=== PATIENT | male | born 1975 | race Caucasian/White ===

== ENCOUNTER 2018-11-26 12:28 | Observation (INO) ==
[2018-11-26] MEDS ORDERED: ONDANSETRON INJ 2 MG/ML 2 ML VIAL ONE (12:34)
[2018-11-26] MEDS ORDERED: DIAZEPAM 5 MG/ML INJ 10ML VIAL IV STA (12:44)
[2018-11-26] MEDS ORDERED: SODIUM CHLORIDE 0.9% 500 ML IV SCH (12:45)
--- NOTE | 2018-11-26 13:04 | Emergency Department Note ---
Entered by Savanah Jacobson acting as a scribe for History of Present Illness General Chief complaint: Vertigo Stated complaint: Dizzy, N/V Source: patient History of Present Illness Onset (ago): hour(s) (this morning) Location: head Pain Consistency: + other (persistent ) Quality: + other (room-spinning dizziness) Exacerbated By: + movement Associated symptoms: + nausea/vomiting and + other (positive diarrhea; negative abdominal pain; negative ringing in ears ); no chest pain and no shortness of breath The patient is a 43 year old male who presents to the Emergency Room with complaints of persistent dizziness that began this morning. The patient describes this dizziness as room-spinning. The patient states that he has had nausea, vomiting, and diarrhea during this time. The patient states that movement exacerbates her dizziness. The patient denies abdominal pain, chest pain, shortness of breath, and ringing in his ears. The patient denies any recent travel, tobacco use, and alcohol use. He states that he has a history of diabetes and hypertension. Home Medications Home Medications Medication Instructions Recorded Confirmed Type amlodipine 10 mg PO DAILY 11/26/18 11/26/18 History carvedilol 1 tab PO BID 11/26/18 11/26/18 History cholecalciferol (vitamin D3) 50,000 unit PO WK 11/26/18 11/26/18 History citalopram [Celexa] 40 mg PO DAILY 11/26/18 11/26/18 History hydrochlorothiazide 25 mg PO DAILY 11/26/18 11/26/18 History lisinopril 40 mg PO DAILY 11/26/18 11/26/18 History metformin 500 mg PO BID 11/26/18 11/26/18 History simvastatin 20 mg PO HS 11/26/18 11/26/18 History sitagliptin-metformin [Janumet] 1 tab PO DAILY 11/26/18 11/26/18 History spironolactone 1.5 tab PO DAILY 11/26/18 11/26/18 History Allergies Allergy/AdvReac Type Severity Reaction Status Date / Time No Known Allergies Allergy Unverified 11/26/18 13:41 Past Med/Surg History Medical History Diabetes (Chronic) Hypertension (Chronic) Social History Current Living Situation: Spouse Other Information That Helps Us Care for You: No Feels Safe at Home: Yes Safety Concerns: Feels Safe At This Time Smoking Status: Never smoker Hx Alcohol Use: No Hx Substance Use: No Beliefs That Will Affect Care: None Preferred Language: Japanese Communication Ability: Effective Review of Systems See HPI for pertinent positives & negatives. and A total of 10 systems reviewed and were otherwise negative Physical Exam Vital Signs Vital Signs - 24 hr 11/26/18 11:45 11/26/18 12:41 11/26/18 12:42 Temperature Temperature Source Sepsis Recent Fever Within 48 Hours Sepsis New/Unexplained Change in Mental Status Sepsis Action Taken by Nursing Pulse Rate 68 67 68 Pulse Rate [Left Radial] Pulse Rhythm Pulse Rhythm [Left Radial] Pulse Strength Pulse Strength [Left Radial] Respiratory Rate 18 23 29 H Respiratory Effort / Characteristics Respiratory Depth Respiratory Pattern Blood Pressure 135/77 138/99 Blood Pressure [Right Arm] Blood Pressure Mean 96 112 Blood Pressure Mean [Right Arm] Blood Pressure Position Blood Pressure Position [Right Arm] Pulse Oximetry Pulse Oximetry [Left Index Finger] Oxygen Delivery Method Oxygen Delivery Method [Left Index Finger] 11/26/18 12:44 11/26/18 12:50 11/26/18 12:54 Temperature 36.4 C L Temperature Source Oral Sepsis Recent Fever Within 48 Hours No Sepsis New/Unexplained Change in Mental Status No Sepsis Action Taken by Nursing No Action Required Pulse Rate 66 65 65 Pulse Rate [Left Radial] Pulse Rhythm Regular Regular Pulse Rhythm [Left Radial] Pulse Strength Normal Pulse Strength [Left Radial] Respiratory Rate 20 18 22 Respiratory Effort / Characteristics Non-Labored Respiratory Depth Normal Respiratory Pattern Regular Blood Pressure 138/99 Blood Pressure [Right Arm] Blood Pressure Mean 112 Blood Pressure Mean [Right Arm] Blood Pressure Position Sitting Blood Pressure Position [Right Arm] Pulse Oximetry 98 97 Pulse Oximetry [Left Index Finger] Oxygen Delivery Method Room Air Room Air Oxygen Delivery Method [Left Index Finger] 11/26/18 13:00 11/26/18 16:23 11/26/18 18:17 Temperature Temperature Source Sepsis Recent Fever Within 48 Hours Sepsis New/Unexplained Change in Mental Status Sepsis Action Taken by Nursing Pulse Rate 62 Pulse Rate [Left Radial] 65 Pulse Rhythm Pulse Rhythm [Left Radial] Regular Pulse Strength Pulse Strength [Left Radial] Normal Respiratory Rate 18 16 Respiratory Effort / Characteristics Non-Labored Respiratory Depth Normal Respiratory Pattern Blood Pressure Blood Pressure [Right Arm] 130/63 Blood Pressure Mean Blood Pressure Mean [Right Arm] 85 Blood Pressure Position Blood Pressure Position [Right Arm] Lying Pulse Oximetry 99 99 Pulse Oximetry [Left Index Finger] 100 Oxygen Delivery Method Room Air Oxygen Delivery Method [Left Index Finger] Room Air 11/26/18 18:21 Temperature 36.8 C Temperature Source Oral Sepsis Recent Fever Within 48 Hours Sepsis New/Unexplained Change in Mental Status Sepsis Action Taken by Nursing Pulse Rate Pulse Rate [Left Radial] 73 Pulse Rhythm Pulse Rhythm [Left Radial] Regular Pulse Strength Pulse Strength [Left Radial] Normal Respiratory Rate 18 Respiratory Effort / Characteristics Non-Labored Respiratory Depth Normal Respiratory Pattern Regular Blood Pressure Blood Pressure [Right Arm] 118/74 Blood Pressure Mean Blood Pressure Mean [Right Arm] 88 Blood Pressure Position Blood Pressure Position [Right Arm] Lying Pulse Oximetry 100 Pulse Oximetry [Left Index Finger] Oxygen Delivery Method Room Air Oxygen Delivery Method [Left Index Finger] GENERAL: Patient is awake and alert. He is very anxious appearing and appears to be uncomfortable. EYES: The conjunctivae are clear. The pupils are round and reactive. EARS, NOSE, MOUTH AND THROAT: The nose is without any evidence of any deformity. Mucous membranes are moist tongue is midline NECK: The neck is nontender and supple. RESPIRATORY: Normal respiratory effort is noted there is no evidence of wheezing rhonchi or rales CARDIOVASCULAR: Regular rate and rhythm noted there no murmurs rubs or gallops normal S1 normal S2 GASTROINTESTINAL: The abdomen is soft. Bowel sounds are present in all quadrants. Abdomen is nontender MUSCULOSKELETAL/EXTREMITIES: There is no evidence of gross deformity full range of motion is noted in the hips and shoulders SKIN: There is no obvious evidence of any rash. Skin is diaphoretic and cool. NEUROLOGIC: Patient is awake alert and oriented x3 strength is symmetric patellar reflexes are 2+ bilaterally. Rapid alternating movements are symmetric. There is nystagmus in both horizontal directions as well as vertical. The patient had significant ataxia when he stood up to walk to the bathroom. His symptoms were significantly worsened with any ambulation. Course 1238: Past medical records reviewed. The patient was evaluated in room C9, and a complete history and physical examination were performed. 1617: I checked on the patient and updated him. 1633: I discussed the case with Mandi RIVERA who will further evaluate the patient. Consultations Consultation #1: I discussed the case with Mandi RIVERA who will further evaluate the patient. Administered Medications Sodium Chloride (Nss 1000ml) 1,000 mls @ 125 mls/hr IV .Q8H CONNOR Stop: 12/26/18 17:59 Last Admin: 11/26/18 18:21 Dose: 125 mls/hr Discontinued Medications Diazepam (Valium) 2.5 mg IV NOW STA Stop: 11/26/18 12:45 Last Admin: 11/26/18 13:07 Dose: 2.5 mg Sodium Chloride (Nss) 500 mls @ 999 mls/hr IV .Q31M CONNOR Stop: 11/26/18 13:15 Last Infusion: 11/26/18 14:55 Dose: 0 mls/hr Admin: 11/26/18 13:07 Dose: 999 mls/hr Meclizine HCl (Antivert) 25 mg PO NOW STA Stop: 11/26/18 16:03 Last Admin: 11/26/18 16:22 Dose: 25 mg Ondansetron HCl (Zofran) Confirm Administered Dose 4 mg .ROUTE .STK-MED ONE Stop: 11/26/18 12:35 Last Admin: 11/26/18 12:37 Dose: 4 mg Medical Decision Making Differential Diagnosis Differential diagnosis: Etiologies such as benign positional vertigo, labrynthitis, dehydration, hypovolemia, anemia, tumor, infection, hypoglycemia, electrolyte abnormalities, cardiac sources, toxicological sources, central neurologic process, as well as others were entertained. Medical Records Attestation: I reviewed the patient's medical records. Home Medications Current Medication List: was personally reviewed by me Laboratory Data Attestation: I reviewed the patient's lab results. Result diagrams: 11/26/18 13:00 11/26/18 13:00 Lab Results 11/26/18 11/26/18 11/26/18 Range/Units 13:00 13:00 13:00 WBC 14.13 H (4.8-10.8) K/uL RBC 4.66 L (4.7-6.1) M/uL Hgb 13.7 L (14.0-18.0) g/dL Hct 40.0 L (42-52) % MCV 85.8 (80-100) fL MCH 29.4 (25-34) pg MCHC 34.3 (32-36) g/dL RDW Std Deviation 43.6 (36.4-46.3) fL RDW Coeff of Sarah 14.1 (11.5-14.5) % Plt Count 209 (130-400) K/uL MPV 9.3 (7.4-10.4) fL Immature Gran % (Auto) 0.8 % Neut % (Auto) 66.1 % Lymph % (Auto) 18.9 % Vigo % (Auto) 8.8 % Eos % (Auto) 5.0 % Baso % (Auto) 0.4 % Immature Gran # (Auto) 0.12 H (0.00-0.02) K/uL Neut # (Auto) 9.34 H (1.4-6.5) K/uL Lymph # (Auto) 2.67 (1.2-3.4) K/uL Vigo # (Auto) 1.24 H (0.11-0.59) K/uL Eos # (Auto) 0.70 H (0-0.5) K/uL Baso # (Auto) 0.06 (0-0.2) K/uL PT 10.7 (9.0-12.0) Seconds INR 1.1 (0.9-1.1) APTT 22.4 (21.0-31.0) Seconds PTT Ratio 0.9 Sodium 138 (136-145) mmol/L Potassium 4.1 (3.5-5.1) mmol/L Chloride 106 (98-107) mmol/L Carbon Dioxide 24 (21-32) mmol/L Anion Gap 8.0 (3-11) BUN 17 (7-18) mg/dl Creatinine 1.24 (0.6-1.4) mg/dl Est Cr Clr Drug Dosing 133.6 ml/min Est GFR ( Amer) 83.2 Est GFR (Non-Af Amer) 71.8 BUN/Creatinine Ratio 14.1 (10-20) Glucose 161 H (70-99) mg/dl Calcium 9.2 (8.5-10.1) mg/dl Magnesium 1.9 (1.8-2.4) mg/dl Total Bilirubin 0.8 (0.2-1) mg/dl AST 19 (15-37) U/L ALT 33 (12-78) U/L Alkaline Phosphatase 59 (45-117) U/L Troponin I < 0.015 (0-0.045) ng/ml Total Protein 7.7 (6.4-8.2) gm/dl Albumin 4.0 (3.4-5.0) gm/dl Globulin 3.7 (2.5-4.0) gm/dl Albumin/Globulin Ratio 1.1 (0.9-2) TSH 1.810 (0.300-4.500) uIu/ml Urine Color Urine Appearance (Clear) Urine pH (4.5-7.5) Ur Specific Correll (1.000-1.030) Urine Protein (Negative) Urine Glucose (UA) (Negative) Urine Ketones (Negative) Urine Blood (Negative) Urine Nitrite (Negative) Urine Bilirubin (Negative) Urine Urobilinogen (Negative) Ur Leukocyte Esterase (Negative) 11/26/18 Range/Units 15:55 WBC (4.8-10.8) K/uL RBC (4.7-6.1) M/uL Hgb (14.0-18.0) g/dL Hct (42-52) % MCV (80-100) fL MCH (25-34) pg MCHC (32-36) g/dL RDW Std Deviation (36.4-46.3) fL RDW Coeff of Sarah (11.5-14.5) % Plt Count (130-400) K/uL MPV (7.4-10.4) fL Immature Gran % (Auto) % Neut % (Auto) % Lymph % (Auto) % Vigo % (Auto) % Eos % (Auto) % Baso % (Auto) % Immature Gran # (Auto) (0.00-0.02) K/uL Neut # (Auto) (1.4-6.5) K/uL Lymph # (Auto) (1.2-3.4) K/uL Vigo # (Auto) (0.11-0.59) K/uL Eos # (Auto) (0-0.5) K/uL Baso # (Auto) (0-0.2) K/uL PT (9.0-12.0) Seconds INR (0.9-1.1) APTT (21.0-31.0) Seconds PTT Ratio Sodium (136-145) mmol/L Potassium (3.5-5.1) mmol/L Chloride (98-107) mmol/L Carbon Dioxide (21-32) mmol/L Anion Gap (3-11) BUN (7-18) mg/dl Creatinine (0.6-1.4) mg/dl Est Cr Clr Drug Dosing ml/min Est GFR ( Amer) Est GFR (Non-Af Amer) BUN/Creatinine Ratio (10-20) Glucose (70-99) mg/dl Calcium (8.5-10.1) mg/dl Magnesium (1.8-2.4) mg/dl Total Bilirubin (0.2-1) mg/dl AST (15-37) U/L ALT (12-78) U/L Alkaline Phosphatase (45-117) U/L Troponin I (0-0.045) ng/ml Total Protein (6.4-8.2) gm/dl Albumin (3.4-5.0) gm/dl Globulin (2.5-4.0) gm/dl Albumin/Globulin Ratio (0.9-2) TSH (0.300-4.500) uIu/ml Urine Color Dark Yellow Urine Appearance Clear (Clear) Urine pH 6.5 (4.5-7.5) Ur Specific Correll 1.025 (1.000-1.030) Urine Protein Negative (Negative) Urine Glucose (UA) Negative (Negative) Urine Ketones Negative (Negative) Urine Blood Negative (Negative) Urine Nitrite Negative (Negative) Urine Bilirubin Negative (Negative) Urine Urobilinogen Negative (Negative) Ur Leukocyte Esterase Negative (Negative) Imaging Data Radiologist's Impression: Radiology results as stated below per my review and the radiologist's interpretation: XR chest 1V portable HISTORY: weakness COMPARISON: None. FINDINGS: Low lung volumes. The heart is mildly enlarged. No evidence for pulmonary edema. No focal lung consolidations to suggest pneumonia. No pleural effusions. No pneumothorax. IMPRESSION: Mild cardiomegaly. Electronically signed by: Armando Allan M.D. 11/26/2018 2:[address]AST CT DOSE: 884.08 mGy.cm HISTORY: dizzy TECHNIQUE: Multiaxial CT images of the head were performed without the use of intravenous contrast. Automated exposure control was utilized for this study. A dose lowering technique was utilized adhering to the principles of ALARA. Comparison: Brain MRI 12/18/2009. Findings: Mild mucosal thickening within the sphenoid sinuses. Trace fluid level within the left maxillary sinus. The mastoid air cells are clear. The calvarium and skull base are intact. The ventricles and sulci are within normal limits. There is no mass, hematoma, midline shift, or acute infarct. Impression: No acute intracranial abnormality. Mild sinus disease as described above. Electronically signed by: Armando Allan M.D. 11/26/2018 1:31 PM ECG Data Attestation: I personally reviewed and interpreted this ECG as follows: Indication: weakness Rate (beats per minute): 64 Rhythm: sinus rhythm Findings: + 1st degree AV block; no nonspecific-ST abn and no ectopy Comparison ECG Date: no prior available Blood Pressure Blood Pressure Findings: Normal blood pressure MDM Narrative The patient is a 43-year-old male who presented to the emergency department for an evaluation of nausea and vomiting. The patient has a history of diabetes. He was brought into the emergency department by ambulance after he was noted to have significant diaphoresis and nausea. Initially this was felt to be consistent with a possible ischemic episode but the patient has no changes on EKG and his cardiac biomarker was negative. On further history and physical taking I do find the patient's symptoms appear to be more positional in nature. He has nystagmus which is very significant and has very significant ataxia. It is possible that this represents a peripheral vertigo however given the patient's symptoms and his history of diabetes I discussed his case with the on- call [facility] hospitalist. It is possible this represents a central cause for his vertigo. For this reason I do feel he may require further testing or at least observation. The patient was treated with medications for vertigo on subsequent reevaluation was somewhat improved. Impression & Plan Vertigo, Ataxia Discharge Plan Visit Data *Final* Discharge Date/Time: 11/26/18 17:54 Chief Complaint: Vertigo Stated Complaint: Dizzy, N/V ED Provider: Chaim Wasserman Discharge Problem: Vertigo, Ataxia Patient Disposition: Admitted As Inpatient Discharge Instructions Interventions: ED Discharge Assessment Last Done: 11/26/18 17:54 The scribe's documentation has been prepared under my direction and personally reviewed by me in its entirety. I confirm that the note above accurately reflects all work, treatment, procedures, and medical decision making performed by me.
[2018-11-26 13:18] LABS: Basophils # (auto) 0.06 K/uL (0-0.2); Basophils % (auto) 0.4 %; Hemoglobin 13.7 g/dL (14.0-18.0); Immature Granulocytes # (auto) 0.12 K/uL (0.00-0.02); Immature Granulocytes % (auto) 0.8 %; Lymphocytes # (auto) 2.67 K/uL (1.2-3.4); Lymphocytes % (auto) 18.9 %; Mean Corpuscular Hgb Conc 34.3 g/dL (32-36); Mean Corpuscular Volume 85.8 fL (80-100); Mean Platelet Volume 9.3 fL (7.4-10.4); Monocytes # (auto) 1.24 K/uL (0.11-0.59); Monocytes % (auto) 8.8 %; Neutrophils # (auto) 9.34 K/uL (1.4-6.5); Neutrophils % (auto) 66.1 %; Platelet Count 209 K/uL (130-400); RDW Coefficient of Variation 14.1 % (11.5-14.5); RDW Standard Deviation 43.6 fL (36.4-46.3); Red Blood Count 4.66 M/uL (4.7-6.1); White Blood Count 14.13 K/uL (4.8-10.8)
[2018-11-26 13:28] LABS: INR 1.1 (0.9-1.1); Partial Thromboplastin Ratio 0.9; Partial Thromboplastin Time 22.4 Seconds (21.0-31.0); Prothrombin Time 10.7 Seconds (9.0-12.0)
[2018-11-26 13:33] LABS: Alanine Aminotransferase 33 U/L (12-78); Aspartate Aminotransferase 19 U/L (15-37); BUN Creatinine Ratio 14.1 (10-20); Blood Urea Nitrogen 17 mg/dl (7-18); Calcium 9.2 mg/dl (8.5-10.1); Carbon Dioxide 24 mmol/L (21-32); Chloride 106 mmol/L (98-107); Creatinine Clr Calc Pharmacy 133.6 ml/min; Est GFR (African American) 83.2; Est GFR (Non-African American) 71.8; Glucose 161 mg/dl (70-99); Magnesium 1.9 mg/dl (1.8-2.4); Potassium 4.1 mmol/L (3.5-5.1); Sodium 138 mmol/L (136-145)
--- NOTE | 2018-11-26 13:33 | CT Scan Report ---
HEAD CT NONCONTRAST CT DOSE: 884.08 mGy.cm HISTORY: dizzy TECHNIQUE: Multiaxial CT images of the head were performed without the use of intravenous contrast. A utomated exposure control was utilized for this study. A dose lowering technique was utilized adheri ng to the principles of ALARA. Comparison: Brain MRI 12/18/2009. Findings: Mild mucosal thickening within the sphenoid sinuses. Trace fluid level within the left maxi llary sinus. The mastoid air cells are clear. The calvarium and skull base are intact. The ventricles and sulci are within normal limits. There is no mass, hematoma, midline shift, or acute infarct. Impression: No acute intracranial abnormality. Mild sinus disease as described above. Electronically signed by: Armando Allan M.D. 11/26/2018 1:31 PM
[2018-11-26 13:44] LABS: Albumin Globulin Ratio 1.1 (0.9-2); Alkaline Phosphatase 59 U/L (45-117); Bilirubin,Total 0.8 mg/dl (0.2-1); Globulin 3.7 gm/dl (2.5-4.0); Total Protein 7.7 gm/dl (6.4-8.2); Troponin I < 0.015 ng/ml (0-0.045)
--- NOTE | 2018-11-26 14:05 | XRay Report ---
XR chest 1V portable HISTORY: weakness COMPARISON: None. FINDINGS: Low lung volumes. The heart is mildly enlarged. No evidence for pulmonary edema. No focal l brandon consolidations to suggest pneumonia. No pleural effusions. No pneumothorax. IMPRESSION: Mild cardiomegaly. Electronically signed by: Armando Allan M.D. 11/26/2018 2:04 PM
[2018-11-26] MEDS ORDERED: MECLIZINE HCL 25 MG TAB PO STA (16:02)
[2018-11-26 16:16] LABS: Appearance Urine Clear (Clear); Bilirubin Urine Negative (Negative); Color Urine Dark Yellow; Glucose Urine UA Negative (Negative); Ketones Urine Negative (Negative); Leukocyte Esterase Urine Negative (Negative); Nitrite Urine Negative (Negative); Protein Urine Negative (Negative); Specific Gravity Urine 1.025 (1.000-1.030); Urobilinogen Urine Negative (Negative); pH Urine 6.5 (4.5-7.5)
[2018-11-26] MEDS ORDERED: GLUCAGON FOR INJ 1 MG VIAL SQ PRN (18:17)
[2018-11-26] MEDS ORDERED: CARBOHYDRATES FOR HYPOGLYCEMIA PO PRN (18:17)
[2018-11-26] MEDS ORDERED: GLUCOSE 40% GEL 15 GM TUBE PO PRN (18:17)
[2018-11-26] MEDS ORDERED: ACETAMINOPHEN 325 MG TAB PO PRN (18:17)
[2018-11-26] MEDS ORDERED: GLUCOSE 10 TABS/TUBE PO PRN (18:17)
[2018-11-26] MEDS ORDERED: MECLIZINE HCL 25 MG TAB PO PRN (18:17)
[2018-11-26] MEDS ORDERED: DEXTROSE 50% 50 ML SYRINGE IV PRN (18:17)
[2018-11-26] MEDS ORDERED: ONDANSETRON INJ 2 MG/ML 2 ML VIAL IV PRN (18:17)
[2018-11-26] MEDS: SODIUM CHLORIDE 0.9% 1000ML 1,000 ML IV SCH (18:21)
[2018-11-26] MEDS ORDERED: ENOXAPARIN INJ 40 MG/0.4 ML SYR SQ SCH (19:00)
--- NOTE | 2018-11-26 19:35 | History & Physical Report ---
Date of Service November 26, 2018 Assessment & Plan (1) Vertigo: -admit to tele -patient presenting with worsening dizziness and several episodes of vomiting -symptoms seem to be due to vertigo, however given patient's underlying co- morbidities, will observe over night -head CT negative -continue neuro checks q4h -supportive care with IVF, PRN antiemetics and meclizine -hold HCTZ for now -if patient does not improve, consider further imaging with brain MRI (2) HTN (hypertension): -BP controlled, continue amlodipine, lisinopril, spironalactone, carvedilol -holding HCTZ as above (3) DM type 2 (diabetes mellitus, type 2): -hgb a1c 6.7 08/2018 -hold oral agents and utilize Novolog per protocol while hospitalized (4) LEIGH on CPAP: -CPAP as per home settings (5) Anxiety: -continue citalopram (6) DVT prophylaxis: - SQ Lovenox History of Present Illness Chief Complaint: Dizziness, Vomitting Primary Care Provider: Mikey Vizcaino 43 year old male who presents to the ED with vomiting and dizziness. Patient reports last evening he took an additional stool softener. This morning, he reports a large amount of diarrhea. Patient felt overall ok and then went to work. He reports that when he arrived to work he developed dizziness, a sensation of the room spinning around him. He reports several episodes of vomiting. No hematemesis or coffee ground emesis. He was very diaphoretic. He denies chest pain and shortness of breath. No unilateral weakness, numbness, tingling, slurred speech, or facial droop. He denies abdominal pain. No other recent illnesses, fever, or chills. He denies urinary symptoms. In the ED, head CT is negative for acute findings. Initial troponin is negative and EKG does not show any acute ST changes. Patient was given IVF, IV diazepam, and PO meclizine. He reports some improvement in his symptoms. Patient attempted to ambulate to the bathroom however remains very ataxic. Allergies Allergy/AdvReac Type Severity Reaction Status Date / Time No Known Allergies Allergy Unverified 11/26/18 13:41 Home Medications Home Medications Medication Instructions Recorded Confirmed Type amlodipine 10 mg PO DAILY 11/26/18 11/26/18 History carvedilol 1 tab PO BID 11/26/18 11/26/18 History cholecalciferol (vitamin D3) 50,000 unit PO WK 11/26/18 11/26/18 History citalopram [Celexa] 40 mg PO DAILY 11/26/18 11/26/18 History hydrochlorothiazide 25 mg PO DAILY 11/26/18 11/26/18 History lisinopril 40 mg PO DAILY 11/26/18 11/26/18 History metformin 500 mg PO BID 11/26/18 11/26/18 History simvastatin 20 mg PO HS 11/26/18 11/26/18 History sitagliptin-metformin [Janumet] 1 tab PO DAILY 11/26/18 11/26/18 History spironolactone 1.5 tab PO DAILY 11/26/18 11/26/18 History Past Med/Surg History Medical History Anxiety (Chronic) HTN (hypertension) (Chronic) LEIGH on CPAP (Chronic) DM type 2 (diabetes mellitus, type 2) (Chronic) Surgical History History of appendectomy (Chronic) Family History Father COPD (chronic obstructive pulmonary disease) Heart disease Social History Current Living Situation: Spouse Other Information That Helps Us Care for You: No Feels Safe at Home: Yes Safety Concerns: Feels Safe At This Time Smoking Status: Never smoker Hx Alcohol Use: Yes Alcohol Intake Frequency: holidays/special occasions only Beliefs That Will Affect Care: None Preferred Language: Mohawk Communication Ability: Effective Review of Systems ROS per HPI, all other systems reviewed and negative Physical Exam 2 Vital Signs (Past 24 Hours): Last Vital Signs Temp 36.8 C 11/26/18 18:21 Pulse 73 11/26/18 18:21 Resp 18 11/26/18 18:21 BP 118/74 11/26/18 18:21 Pulse Ox 100 11/26/18 18:21 Constitutional: WD/WN, vitals as above + obese Eyes: PERRL, conjunctivae normal, anicteric sclerae ENMT: external ear and nose normal, oropharynx normal Respiratory: normal respiratory effort, lungs clear to auscultation Cardiovascular: Rate/Rhythm: regular rate and regular rhythm Vessels: normal peripheral pulses Extremities: no edema Gastrointestinal (Abdomen): normal bowel sounds, soft, nontender, no hepatosplenomegaly Musculoskeletal: no cyanosis or clubbing, extremities motor strength 5/5 Skin: no rashes, warm and dry Neurologic: moves all extremities and awake Speech / Cognition: normal speech and no expressive aphasia Motor/Sensory: no pronator drift Cranial Nerves: PERRL, normal accommodation, EOM intact bilaterally, normal facial strength, tongue midline, normal hearing, able to rotate head bilaterally, able to elevate shoulders bilaterally and no nystagmus Coordination: normal finger -to-nose test and normal [id number] test Psychiatric: A+Ox3, euthymic affect Results & Data Laboratory Results Laboratory Last Values WBC 14.13 K/uL (4.8-10.8) H 11/26/18 13:00 RBC 4.66 M/uL (4.7-6.1) L 11/26/18 13:00 Hgb 13.7 g/dL (14.0-18.0) L 11/26/18 13:00 Hct 40.0 % (42-52) L 11/26/18 13:00 MCV 85.8 fL (80-100) 11/26/18 13:00 MCH 29.4 pg (25-34) 11/26/18 13:00 MCHC 34.3 g/dL (32-36) 11/26/18 13:00 RDW Std Deviation 43.6 fL (36.4-46.3) 11/26/18 13:00 RDW Coeff of Sarah 14.1 % (11.5-14.5) 11/26/18 13:00 Plt Count 209 K/uL (130-400) 11/26/18 13:00 MPV 9.3 fL (7.4-10.4) 11/26/18 13:00 Immature Gran % (Auto) 0.8 % 11/26/18 13:00 Neut % (Auto) 66.1 % 11/26/18 13:00 Lymph % (Auto) 18.9 % 11/26/18 13:00 [place] % (Auto) 8.8 % 11/26/18 13:00 Eos % (Auto) 5.0 % 11/26/18 13:00 Baso % (Auto) 0.4 % 11/26/18 13:00 Immature Gran # (Auto) 0.12 K/uL (0.00-0.02) H 11/26/18 13:00 Neut # (Auto) 9.34 K/uL (1.4-6.5) H 11/26/18 13:00 Lymph # (Auto) 2.67 K/uL (1.2-3.4) 11/26/18 13:00 [place] # (Auto) 1.24 K/uL (0.11-0.59) H 11/26/18 13:00 Eos # (Auto) 0.70 K/uL (0-0.5) H 11/26/18 13:00 Baso # (Auto) 0.06 K/uL (0-0.2) 11/26/18 13:00 PT 10.7 Seconds (9.0-12.0) 11/26/18 13:00 INR 1.1 (0.9-1.1) 11/26/18 13:00 APTT 22.4 Seconds (21.0-31.0) 11/26/18 13:00 PTT Ratio 0.9 11/26/18 13:00 Sodium 138 mmol/L (136-145) 11/26/18 13:00 Potassium 4.1 mmol/L (3.5-5.1) 11/26/18 13:00 Chloride 106 mmol/L (98-107) 11/26/18 13:00 Carbon Dioxide 24 mmol/L (21-32) 11/26/18 13:00 Anion Gap 8.0 (3-11) 11/26/18 13:00 BUN 17 mg/dl (7-18) 11/26/18 13:00 Creatinine 1.24 mg/dl (0.6-1.4) 11/26/18 13:00 Est Cr Clr Drug Dosing 133.6 ml/min 11/26/18 13:00 Est GFR ( Amer) 83.2 11/26/18 13:00 Est GFR (Non-Af Amer) 71.8 11/26/18 13:00 BUN/Creatinine Ratio 14.1 (10-20) 11/26/18 13:00 Glucose 161 mg/dl (70-99) H 11/26/18 13:00 POC Glucose 152 (70-99) H 11/26/18 18:42 Calcium 9.2 mg/dl (8.5-10.1) 11/26/18 13:00 Magnesium 1.9 mg/dl (1.8-2.4) 11/26/18 13:00 Total Bilirubin 0.8 mg/dl (0.2-1) 11/26/18 13:00 AST 19 U/L (15-37) 11/26/18 13:00 ALT 33 U/L (12-78) 11/26/18 13:00 Alkaline Phosphatase 59 U/L (45-117) 11/26/18 13:00 Troponin I < 0.015 ng/ml (0-0.045) 11/26/18 13:00 Total Protein 7.7 gm/dl (6.4-8.2) 11/26/18 13:00 Albumin 4.0 gm/dl (3.4-5.0) 11/26/18 13:00 Globulin 3.7 gm/dl (2.5-4.0) 11/26/18 13:00 Albumin/Globulin Ratio 1.1 (0.9-2) 11/26/18 13:00 TSH 1.810 uIu/ml (0.300-4.500) 11/26/18 13:00 Urine Color Dark Yellow 11/26/18 15:55 Urine Appearance Clear (Clear) 11/26/18 15:55 Urine pH 6.5 (4.5-7.5) 11/26/18 15:55 Ur Specific [place] 1.025 (1.000-1.030) 11/26/18 15:55 Urine Protein Negative (Negative) 11/26/18 15:55 Urine Glucose (UA) Negative (Negative) 11/26/18 15:55 Urine Ketones Negative (Negative) 11/26/18 15:55 Urine Blood Negative (Negative) 11/26/18 15:55 Urine Nitrite Negative (Negative) 11/26/18 15:55 Urine Bilirubin Negative (Negative) 11/26/18 15:55 Urine Urobilinogen Negative (Negative) 11/26/18 15:55 Ur Leukocyte Esterase Negative (Negative) 11/26/18 15:55 Diagnostic Findings CXR IMPRESSION: Mild cardiomegaly. Head CT Impression: No acute intracranial abnormality. Mild sinus disease as described above. Code Status & VTE Plan VTE Prophylaxis Plan VTE Prophylaxis will be ordered: Yes Supervising Physician Co-Signing Physician Notes I have seen and examined the patient with nurse practitioner and agree with the assessment and plan as above and would like to comment that on exam patient is an obese male Eye exam: EOMI, pupils intact and reactive to light, no nygstagmus noted Mouth: no tongue fasculations Heart: regular rate Lungs: CTABL, no wheezing, on room air Neuro: awake and alert and no focal neurological deficits At this time we will be taking conservation measures to manage the vertigo and nausea and vomiting with IV fluids and antiemetics. patient reports symptoms worse with head movements. if this is a Benign Paroxysmal Positional Vertigo then perhpas his symptoms can be relieved by kalyn maneuver if physical therapy can perform this maneuver. performing kalyn maneuver may be difficult given patient's large body habitus and if he can feel comfortable enough to cooperate agree with other medical management for health issues as above as listed by nurse practitioner
[2018-11-26] MEDS: INSULIN ASPART 100 UNITS/ML 3 ML PEN SC SCH (20:48)
[2018-11-26] MEDS ORDERED: SIMVASTATIN 20 MG TAB PO SCH (21:00)
[2018-11-26] MEDS: CARVEDILOL 25 MG TAB PO SCH (21:35)
[2018-11-27] MEDS: SODIUM CHLORIDE 0.9% 1000ML 1,000 ML IV SCH (03:12)
[2018-11-27 07:27] LABS: Hematocrit (blood only) 36.9 % (42-52); Hemoglobin 12.3 g/dL (14.0-18.0); Mean Corpuscular Hgb Conc 33.3 g/dL (32-36); Mean Corpuscular Volume 86.4 fL (80-100); Platelet Count 239 K/uL (130-400); RDW Coefficient of Variation 14.2 % (11.5-14.5); RDW Standard Deviation 44.4 fL (36.4-46.3); Red Blood Count 4.27 M/uL (4.7-6.1); White Blood Count 12.35 K/uL (4.8-10.8)
[2018-11-27 07:59] LABS: BUN Creatinine Ratio 18.1 (10-20); Calcium 8.8 mg/dl (8.5-10.1); Creatinine Clr Calc Pharmacy 146.3 ml/min; Est GFR (African American) 93.1; Est GFR (Non-African American) 80.3; Potassium 3.5 mmol/L (3.5-5.1)
[2018-11-27] MEDS: INSULIN ASPART 100 UNITS/ML 3 ML PEN SC SCH ×2 (08:22→12:42)
[2018-11-27] MEDS: CARVEDILOL 25 MG TAB PO SCH (08:23)
[2018-11-27] MEDS ORDERED: CITALOPRAM 40 MG TAB PO SCH (09:00)
[2018-11-27] MEDS ORDERED: SPIRONOLACTONE 25 MG TAB PO SCH (09:00)
[2018-11-27] MEDS ORDERED: AMLODIPINE BESYLATE 5 MG TAB PO SCH (09:00)
[2018-11-27] MEDS ORDERED: LISINOPRIL 40 MG TAB PO SCH (09:00)
--- NOTE | 2018-11-27 12:46 | Hospitalist Progress Note ---
Date of Service November 27, 2018 Assessment & Plan (1) Vertigo: Vertigo (possibly benign positional vertigo) Patient presented to the ED on 11/27/18 for vertigo symptoms associated with vomiting and worse with changing head position Head CT negative patient was monitored overnight on telemetry and no acute telemetry events, troponins have been negative vertigo symptom resolved by 11/28/18 Physical therapy assessed the patient and reported Ismael Sandoval pike negative and no need for Jazmyn maneuver Patient has prescription of meclizine 5 mg three times a day as needed for motion sickness (15 tablets) electronically sent to [facility] pharmacy at [facility] (2) HTN (hypertension): -BP controlled, continue amlodipine, lisinopril, spironalactone, carvedilol -resume home dose HCTZ (3) DM type 2 (diabetes mellitus, type 2): Type 2 diabetes mellitus without complication and without care home use of insulin was given sliding scale insulin in the hospital can resume home oral diabetes mellitus medications on discharge (4) LEIGH on CPAP: -CPAP as per home settings (5) Anxiety: -continue citalopram (6) DVT prophylaxis: - SQ Lovenox Discharge Diagnosis Vertigo (possibly benign positional vertigo), Hypertension, Type 2 diabetes mellitus without complication and without superintendent container terminal use of insulin, Obstructive sleep apnea on CPAP, Morbid Obesity due to excess calories with body mass index 60.4 in adult Discharge Instructions Patient has prescription of meclizine 5 mg three times a day as needed for motion sickness (15 tablets) electronically sent to [facility] pharmacy at [facility] Patient given discharge prescription for outpatient physical therapy 11/29/2018 9:45 AM Provider Maria A Moran DO Department Nutrition & Weight Management, [facility] 11/30/2018 10:20 AM Provider Mikey Vizcaino MD Department Family [facility] Patient seen in the morning and was walking with physical therapy The vertigo symptoms have resolved Patient able to tolerate a full lunch meal Patient denies chest pain or shortness of breath. no abdominal pain. no vomiting. Physical Exam 2 Vital Signs (Past 24 Hours): Last Vital Signs Temp 36.3 C L 11/27/18 11:52 Pulse 65 11/27/18 11:52 Resp 18 11/27/18 11:52 BP 121/74 11/27/18 11:52 Pulse Ox 94 11/27/18 11:52 Constitutional: WD/WN, vitals as above + obese Eyes: PERRL, conjunctivae normal, anicteric sclerae ENMT: external ear and nose normal, oropharynx normal Respiratory: normal respiratory effort, lungs clear to auscultation Cardiovascular: Rate/Rhythm: regular rate and regular rhythm Vessels: normal peripheral pulses Extremities: no edema Gastrointestinal (Abdomen): normal bowel sounds, soft, nontender, no hepatosplenomegaly Musculoskeletal: no cyanosis or clubbing, extremities motor strength 5/5 Skin: no rashes, warm and dry Neurologic: moves all extremities and awake Speech / Cognition: normal speech and no expressive aphasia Motor/Sensory: no pronator drift Cranial Nerves: PERRL, normal accommodation, EOM intact bilaterally, normal facial strength, tongue midline, normal hearing, able to rotate head bilaterally, able to elevate shoulders bilaterally and no nystagmus Coordination: normal finger -to-nose test and normal [id number] test Psychiatric: A+Ox3, euthymic affect
--- NOTE | 2018-11-27 13:11 | Discharge Summary ---
Date of Service November 27, 2018 Admission HPI Per Admitting Provider 43 year old male who presents to the ED with vomiting and dizziness. Patient reports last evening he took an additional stool softener. This morning, he reports a large amount of diarrhea. Patient felt overall ok and then went to work. He reports that when he arrived to work he developed dizziness, a sensation of the room spinning around him. He reports several episodes of vomiting. No hematemesis or coffee ground emesis. He was very diaphoretic. He denies chest pain and shortness of breath. No unilateral weakness, numbness, tingling, slurred speech, or facial droop. He denies abdominal pain. No other recent illnesses, fever, or chills. He denies urinary symptoms. In the ED, head CT is negative for acute findings. Initial troponin is negative and EKG does not show any acute ST changes. Patient was given IVF, IV diazepam, and PO meclizine. He reports some improvement in his symptoms. Patient attempted to ambulate to the bathroom however remains very ataxic. Admission Exam Per Admitting Provider Vital Signs (Past 24 Hours): Last Vital Signs Temp 36.8 C 11/26/18 18:21 Pulse 73 11/26/18 18:21 Resp 18 11/26/18 18:21 BP 118/74 11/26/18 18:21 Pulse Ox 100 11/26/18 18:21 Constitutional: WD/WN, vitals as above + obese Eyes: PERRL, conjunctivae normal, anicteric sclerae ENMT: external ear and nose normal, oropharynx normal Respiratory: normal respiratory effort, lungs clear to auscultation Cardiovascular: Rate/Rhythm: regular rate and regular rhythm Vessels: normal peripheral pulses Extremities: no edema Gastrointestinal (Abdomen): normal bowel sounds, soft, nontender, no hepatosplenomegaly Musculoskeletal: no cyanosis or clubbing, extremities motor strength 5/5 Skin: no rashes, warm and dry Neurologic: moves all extremities and awake Speech / Cognition: normal speech and no expressive aphasia Motor/Sensory: no pronator drift Cranial Nerves: PERRL, normal accommodation, EOM intact bilaterally, normal facial strength, tongue midline, normal hearing, able to rotate head bilaterally, able to elevate shoulders bilaterally and no nystagmus Coordination: normal finger- to-nose test and normal [id number] test Psychiatric: A+Ox3, euthymic affect Principal Diagnosis Vertigo (possibly benign positional vertigo), Hypertension, Type 2 diabetes mellitus without complication and without termite technician use of insulin, Obstructive sleep apnea on CPAP, Morbid Obesity due to excess calories with body mass index 60.4 in adult Discharge Exam Constitutional WD/WN, vitals as above + obese Eyes PERRL, conjunctivae normal, anicteric sclerae ENMT external ear and nose normal, oropharynx normal Respiratory normal respiratory effort, lungs clear to auscultation Cardiovascular Rate/Rhythm: regular rate and regular rhythm Vessels: normal peripheral pulses Extremities: no edema Gastrointestinal (Abdomen) normal bowel sounds, soft, nontender, no hepatosplenomegaly Musculoskeletal no cyanosis or clubbing, extremities motor strength 5/5 Skin no rashes, warm and dry Neurologic moves all extremities and awake Speech / Cognition: normal speech and no expressive aphasia Motor/Sensory: no pronator drift Cranial Nerves: PERRL, normal accommodation, EOM intact bilaterally, normal facial strength, tongue midline, normal hearing, able to rotate head bilaterally , able to elevate shoulders bilaterally and no nystagmus Coordination: normal fvgrao-sv-[id number] test and normal hnpz-[id number] test Psychiatric A+Ox3, euthymic affect Discharge Data Allergies Allergy/AdvReac Type Severity Reaction Status Date / Time No Known Allergies Allergy Unverified 11/26/18 13:41 Consultations 11/26/18 16:33 ED Decision to Admit Stat Ordered Studies 11/26/18 12:44 CT head/brain wo con Stat Hospital Course (1) Vertigo: Vertigo (possibly benign positional vertigo) Patient presented to the ED on 11/27/18 for vertigo symptoms associated with vomiting and worse with changing head position Head CT negative patient was monitored overnight on telemetry and no acute telemetry events, troponins have been negative vertigo symptom resolved by 11/28/18 Physical therapy assessed the patient and reported Ismael Sandoval pike negative and no need for Jazmyn maneuver Patient has prescription of meclizine 5 mg three times a day as needed for motion sickness (15 tablets) electronically sent to [facility] pharmacy at [facility] (2) HTN (hypertension): -BP controlled, continue amlodipine, lisinopril, spironalactone, carvedilol -resume home dose HCTZ (3) DM type 2 (diabetes mellitus, type 2): Type 2 diabetes mellitus without complication and without jail use of insulin was given sliding scale insulin in the hospital can resume home oral diabetes mellitus medications on discharge (4) LEIGH on CPAP: -CPAP as per home settings (5) Anxiety: -continue citalopram Morbid Obesity due to excess calories with body mass index 60.4 in adult patient has appointment for Nutrition & Weight Management as outpatient (6) DVT prophylaxis: - SQ Lovenox Discharge Diagnosis Vertigo (possibly benign positional vertigo), Hypertension, Type 2 diabetes mellitus without complication and without termite technician use of insulin, Obstructive sleep apnea on CPAP, Morbid Obesity due to excess calories with body mass index 60.4 in adult Discharge Instructions Patient has prescription of meclizine 5 mg three times a day as needed for motion sickness (15 tablets) electronically sent to [facility] pharmacy at [facility] Patient given discharge prescription for outpatient physical therapy 11/29/2018 9:45 AM Provider Maria A Moran DO Department Nutrition & Weight Management, [facility] 11/30/2018 10:20 AM Provider Mikey Vizcaino MD Department [facility] Total Time Total Time Spent Total Time Spent (In Minutes): 40 minutes Total Time Includes: Examination of the Patient, Discharge Planning and Medication Reconciliation Discharge Plan Discharge Items Patient Disposition: Home - Self-Care Reason For Visit: VERTIGO Discharge Diagnosis: Vertigo (possibly benign positional vertigo), Hypertension , Type 2 diabetes mellitus without complication and without jail use of insulin, Obstructive sleep apnea on CPAP, Morbid Obesity due to excess calories with body mass index 60.4 in adult Condition: Good Discharge Goals: Improve function Activity: Resume your previous activity Non-emergency contact: Primary Care Provider Call non-emergency contact if: you have any medication questions Diet: Carb Consistent or DM2 Addtl Provider Instructions: Discharge Instructions Patient has prescription of meclizine 5 mg three times a day as needed for motion sickness (15 tablets) electronically sent to [facility] pharmacy at [facility] Patient given discharge prescription for outpatient physical therapy 11/29/2018 9:45 AM Provider Maria A Moran DO Department Nutrition & Weight Management, [facility] 11/30/2018 10:20 AM Provider Mikey Vizcaino MD Department [facility] Prescriptions: New meclizine 25 mg Tablet 25 mg PO TID PRN (Reason: motion sickness) 5 Days Qty: 15 RF: 0 Continue citalopram [Celexa] 40 mg Tablet 40 mg PO DAILY RF: 0 spironolactone 25 mg Tablet 1.5 tab PO DAILY RF: 0 amlodipine 10 mg Tablet 10 mg PO DAILY RF: 0 simvastatin 20 mg Tablet 20 mg PO HS RF: 0 hydrochlorothiazide 25 mg Tablet 25 mg PO DAILY RF: 0 lisinopril 40 mg Tablet 40 mg PO DAILY RF: 0 sitagliptin-metformin [Janumet] 50-1,000 mg Tablet 1 tab PO DAILY RF: 0 carvedilol 25 mg tablet 1 tab PO BID RF: 0 metformin 500 mg tablet extended release 24 hr 500 mg PO BID RF: 0 cholecalciferol (vitamin D3) 50,000 unit Capsule 50,000 unit PO WK RF: 0 Stand-Alone Forms: [facility] Discharge Orders: Discharge Order (Routine); Ordered 11/27/18 Ordered By: Samm Acosta Admission Data Admit Date/Time: 11/26/18 17:00 Attending Provider: Samm Acosta Admit Provider: Samm Acosta Primary Care Provider: Mikey Vizcaino Other Providers: Samm Crisostomo Service: Telemetry
== END 2018-11-27 15:24 | disposition home or self-care (01) ==
LOC: 2S 12:28 → ED 12:28 → 2S 17:54

== ENCOUNTER 2019-12-14 09:54 | Inpatient (IN) ==
[2019-12-14 10:34] LABS: Basophils # (auto) 0.05 K/uL (0-0.2); Basophils % (auto) 0.3 %; Eosinophils # (auto) 0.37 K/uL (0-0.5); Eosinophils % (auto) 2.4 %; Hematocrit (blood only) 42.1 % (42-52); Hemoglobin 14.7 g/dL (14.0-18.0); Immature Granulocytes # (auto) 0.19 K/uL (0.00-0.02); Immature Granulocytes % (auto) 1.2 %; Lymphocytes # (auto) 3.37 K/uL (1.2-3.4); Lymphocytes % (auto) 21.6 %; Mean Corpuscular Hemoglobin 29.9 pg (25-34); Mean Corpuscular Hgb Conc 34.9 g/dL (32-36); Mean Corpuscular Volume 85.6 fL (80-100); Mean Platelet Volume 9.4 fL (7.4-10.4); Monocytes # (auto) 1.62 K/uL (0.11-0.59); Monocytes % (auto) 10.4 %; Neutrophils # (auto) 10.01 K/uL (1.4-6.5); Neutrophils % (auto) 64.1 %; Platelet Count 329 K/uL (130-400); RDW Standard Deviation 43.4 fL (36.4-46.3); Red Blood Count 4.92 M/uL (4.7-6.1); White Blood Count 15.61 K/uL (4.8-10.8)
[2019-12-14 10:52] LABS: Albumin Level 4.4 gm/dl (3.4-5.0); BUN Creatinine Ratio 21.3 (10-20); Calcium 9.5 mg/dl (8.5-10.1); Creatinine Clr Calc Pharmacy 62.7 ml/min; Est GFR (African American) 34.7; Est GFR (Non-African American) 29.9; Potassium 4.2 mmol/L (3.5-5.1)
[2019-12-14 10:54] LABS: Albumin Globulin Ratio 1.1 (0.9-2); Bilirubin,Total 0.7 mg/dl (0.2-1); Globulin 4.1 gm/dl (2.5-4.0); Total Protein 8.5 gm/dl (6.4-8.2)
[2019-12-14] MEDS ORDERED: ONDANSETRON INJ 2 MG/ML 2 ML VIAL IV STA ×2 (11:22→12:56)
[2019-12-14] MEDS: SODIUM CHLORIDE 0.9% 1000ML 1,000 ML IV SCH ×4 (11:28→22:22)
--- NOTE | 2019-12-14 11:57 | Emergency Department Note ---
History of Present Illness General Chief complaint: Vomiting Stated complaint: VOMITING,DIARRHEA Time Seen by Provider: 12/14/19 11:03 History of Present Illness Maximum Pain Intensity: 5 Patient is a 44-year-old male with past medical history significant for hypertension, diabetes, dyslipidemia, status post appendectomy who presents the emergency department for evaluation of ongoing nausea, vomiting and diarrhea x6 days. He was seen and evaluated here in the emergency department 4 days ago for the same complaint. He was thoroughly evaluated with laboratory studies. He received IV fluids and IV Zofran and ultimately was able to tolerate oral intake and was feeling well enough to be discharged home. Patient relates that since discharge, his symptoms have persisted. He states that any liquid intake including water or valerie timothy results in a nearly immediate bowel movement c onsisting of yellow watery diarrhea. He has tried soft foods and has been following the BRAT diet and reports that he is still constantly nauseous and has been vomiting. He reports gas and cramping. He had dry heaves this morning. He reports foul-smelling and foul tasting belches. He had some Zofran that he was given here in the ED, which he used which did not help. He continues to report that his temperature has been running low. He reports mild diffuse abdominal discomfort that he rates a 5/10. He was recently diagnosed with gastroparesis and started on a medication for this about a week ago which he has subsequently stopped. He has not been able to take his diabetic or blood pressure medications due to his current symptoms. Home Medications Home Medications Medication Instructions Recorded Confirmed Type Janumet 1 tab PO QAM 11/26/18 12/14/19 History amlodipine [Norvasc] 10 mg PO HS 11/26/18 12/14/19 History carvedilol [Coreg] 1 tab PO BID 11/26/18 12/14/19 History citalopram [Celexa] 40 mg PO QAM 11/26/18 12/14/19 History hydrochlorothiazide 25 mg PO QAM 11/26/18 12/14/19 History lisinopril [Zestril] 40 mg PO QAM 11/26/18 12/14/19 History metformin [Glucophage XR] 1,000 mg PO QAM 11/26/18 12/14/19 History simvastatin [Zocor] 20 mg PO HS 11/26/18 12/14/19 History spironolactone [Aldactone] 1.5 tab PO QAM 11/26/18 12/14/19 History ondansetron 4 mg PO Q8H PRN 12/14/19 12/14/19 History Allergies Allergy/AdvReac Type Severity Reaction Status Date / Time doxazosin [From Cardura] Allergy Unknown Verified 12/14/19 13:03 empagliflozin Allergy Unknown Verified 12/14/19 13:03 [From Jardiance] Past Med/Surg History Medical History Anxiety (Chronic) DM type 2 (diabetes mellitus, type 2) (Chronic) Heartburn current issues - Also describes feeling that pill is stuck and has lump in throat HTN (hypertension) (Chronic) Morbid obesity LEIGH on CPAP (Chronic) Surgical History History of appendectomy (Chronic) Family History Father COPD (chronic obstructive pulmonary disease) Heart disease Diabetes Mother Heart disease CABG Social History Preferred Language: Portuguese Communication Ability: Effective Medicaid Collection Specialist Required: No Beliefs That Will Affect Care: None Current Living Situation: Spouse Other Information That Helps Us Care for You: No Feels Safe at Home: Yes Safety Concerns: Feels Safe At This Time Smoking Status: Never smoker Hx Alcohol Use: Yes Alcohol type: beer Hx Substance Use: No Review of Systems A total of 10 systems reviewed and were otherwise negative Physical Exam Vital Signs Vital Signs - 24 hr 12/14/19 09:58 12/14/19 10:57 12/14/19 10:59 Temperature 36.4 C L Temperature Source Oral Pulse Rate 91 H 83 Pulse Rate [Finger] 90 Pulse Rate from SpO2 Sensor 82 Respiratory Rate 20 18 12 Blood Pressure 120/82 126/81 Blood Pressure [Right Arm] 126/81 Blood Pressure Mean 94 90 Blood Pressure Mean [Right Arm] 96 Pulse Oximetry 97 98 97 Oxygen Delivery Method Room Air Room Air Sepsis Recent Fever Within 48 Hours No Sepsis New/Unexplained Change in Mental Status No Sepsis Action Taken by Nursing No Action Required 12/14/19 11:08 12/14/19 11:30 12/14/19 12:00 Temperature Temperature Source Pulse Rate 81 80 80 Pulse Rate [Finger] Pulse Rate from SpO2 Sensor 81 81 81 Respiratory Rate 10 L 14 15 Blood Pressure Blood Pressure [Right Arm] Blood Pressure Mean Blood Pressure Mean [Right Arm] Pulse Oximetry 96 98 98 Oxygen Delivery Method Sepsis Recent Fever Within 48 Hours Sepsis New/Unexplained Change in Mental Status Sepsis Action Taken by Nursing 12/14/19 12:30 12/14/19 12:32 12/14/19 13:00 Temperature Temperature Source Pulse Rate 80 78 77 Pulse Rate [Finger] Pulse Rate from SpO2 Sensor Respiratory Rate 15 14 17 Blood Pressure 119/61 Blood Pressure [Right Arm] Blood Pressure Mean 72 Blood Pressure Mean [Right Arm] Pulse Oximetry Oxygen Delivery Method Sepsis Recent Fever Within 48 Hours Sepsis New/Unexplained Change in Mental Status Sepsis Action Taken by Nursing 12/14/19 13:01 12/14/19 13:02 Temperature Temperature Source Pulse Rate 77 79 Pulse Rate [Finger] Pulse Rate from SpO2 Sensor Respiratory Rate 17 13 Blood Pressure 142/63 H Blood Pressure [Right Arm] Blood Pressure Mean 79 Blood Pressure Mean [Right Arm] Pulse Oximetry Oxygen Delivery Method Sepsis Recent Fever Within 48 Hours Sepsis New/Unexplained Change in Mental Status Sepsis Action Taken by Nursing CONSTITUTIONAL: Patient is a morbidly obese 44-year-old male who is awake and alert and laying on the gurney in no acute distress. Vital signs are stable. EYES: Pupils equal, round, reactive to light and accommodation. EOMs intact without nystagmus. Sclera are anicteric. ENT: Tympanic membranes intact, with normal landmarks. External canals are clear. Oral and nasopharynx are clear. Mucous membranes are moist, no lesions, tongue and gums appear normal. CARDIOVASCULAR: Regular rate and rhythm, with normal S1 and S2, no murmur or gallop or rub is heard. No carotid bruits auscultated. No JVD. Peripheral p ulses easy to palpable. RESPIRATORY: Breath sounds equal and clear to auscultation without wheezes, rales, or rhonchi heard. Full and equal chest expansion without accessory muscle use or retractions. GI: Bowel sounds are present/hyperactive. Well-healed surgical scar noted in the right lower quadrant. Abdomen is soft, obese, nontender to percussion throughout. There is no localized tenderness to palpation. No pain in the epigastrium, the right lower quadrant or the right upper quadrant. No guarding or rebound.. No organomegaly. No pulsatile masses. MUSCULOSKELETAL: Full range of motion of extremities x 4 with good strength. No cyanosis, edema, joint tenderness or swelling. No deformity. INTEGUMENTARY: No lesions or rash, normal skin turgor. NEUROLOGICAL: Alert, oriented, and cooperative. Cranial nerves, sensation and strength grossly intact. Pupils round, equal, and react to light, EOMs are full. LYMPH: No lymphadenopathy. Course Course The patient was seen and assessed as above. Old records were reviewed, specifically his ED visit from earlier this week. He presents the emergency department with ongoing nausea, vomiting and diarrhea. IV lock was initiated and laboratory studies were collected. CBC with differential, CMP, lipase and urinalysis were ordered. He was hydrated with nor mal saline solution and medicated with Zofran [address] scan of the abdomen pelvis without contrast was ordered. Laboratory studies noted an elevated white count of 15,600 with left shift and bandemia noted, this is down from 19,000 earlier this week. Electrolytes note a sodium of 130, potassium 4.2, chloride 105, carbon dioxide 19, BUN 54, creatinine 2.54, which is up from his baseline which is normally around 1-1.2. Transaminases are not elevated. Lipase is normal. Urine microscopy is clear. Noncontrast CT scan of the abdomen and pelvis was performed and was unremarkable. There are no acute infectious or inflammatory findings noted. The patient received assessed, he reported ongoing nausea. He was ordered additional Zofran 4 mg and Pepcid 20 mg IV. All laboratory and diagnostic imaging studies were reviewed with him and attending physician. Given his intractable symptoms, the hyponatremia and the now acute kidney injury, it was felt that he would benefit from admission/observation in the hospital for further care and management. Patient was comfortable with this. [facility] and [facility]. Administered Medications Sodium Chloride (Nss 1000ml) 1,000 mls @ 150 mls/hr IV .Q6H40M [facility] Stop: 01/13/20 13:53 Last Admin: 12/14/19 14:13 Dose: 150 mls/hr Documented by: [id number] Discontinued Medications Sodium Chloride (Nss 1000ml) 1,000 mls @ 999 mls/hr IV .Q1H1M [facility] Stop: 12/14/19 13:23 Last Infusion: 12/14/19 14:22 Dose: 0 mls/hr Documented by: [id number] Admin: 12/14/19 13:01 Dose: 999 mls/hr Documented by: [id number] Infusion: 12/14/19 13:01 Dose: 0 mls/hr Documented by: [id number] Admin: 12/14/19 11:28 Dose: 999 mls/hr Documented by: [id number] Famotidine (Pepcid 20mg Iv Push) 20 mg in 5 mls @ 2.5 mls/min IV NOW STA Stop: 12/14/19 12:57 Last Admin: 12/14/19 13:04 Dose: 2.5 mls/min Documented by: [id number] Ondansetron HCl (Zofran) 4 mg IV NOW STA Stop: 12/14/19 11:23 Last Admin: 12/14/19 11:27 Dose: 4 mg Documented by: [id number] Ondansetron HCl (Zofran) 4 mg IV NOW STA Stop: 12/14/19 12:57 Last Admin: 12/14/19 13:04 Dose: 4 mg Documented by: [id number] Medical Decision Making Differential Diagnosis Differential diagnoses entertained included infectious versus inflammatory colitis/enteritis, foodborne illness, acute diverticulitis, bowel obstruction, perforation, abscess, electrolyte or metabolic abnormality, dehydration, medication side effect, among others. Medical Records Attestation: I reviewed the patient's medical records. Home Medications Current Medication List: was personally reviewed by me Laboratory Data Attestation: I reviewed the patient's lab results. Result diagrams: 12/14/19 10:24 12/14/19 10:24 Lab Results 12/14/19 12/14/19 12/14/19 Range/Units 10:24 10:24 10:24 WBC 15.61 H (4.8-10.8) K/uL RBC 4.92 (4.7-6.1) M/uL Hgb 14.7 (14.0-18.0) g/dL Hct 42.1 (42-52) % MCV 85.6 (80-100) fL MCH 29.9 (25-34) pg MCHC 34.9 (32-36) g/dL RDW Std Deviation 43.4 (36.4-46.3) fL RDW Coeff of Sarah 14.0 (11.5-14.5) % Plt Count 329 (130-400) K/uL MPV 9.4 (7.4-10.4) fL Immature Gran % (Auto) 1.2 % Neut % (Auto) 64.1 % Lymph % (Auto) 21.6 % Dickinson % (Auto) 10.4 % Eos % (Auto) 2.4 % Baso % (Auto) 0.3 % Immature Gran # (Auto) 0.19 H (0.00-0.02) K/uL Neut # (Auto) 10.01 H (1.4-6.5) K/uL Lymph # (Auto) 3.37 (1.2-3.4) K/uL Dickinson # (Auto) 1.62 H (0.11-0.59) K/uL Eos # (Auto) 0.37 (0-0.5) K/uL Baso # (Auto) 0.05 (0-0.2) K/uL Sodium 130 L (136-145) mmol/L Potassium 4.2 (3.5-5.1) mmol/L Chloride 105 (98-107) mmol/L Carbon Dioxide 19 L (21-32) mmol/L Anion Gap 6.0 (3-11) BUN 54 H (7-18) mg/dl Creatinine 2.54 H (0.6-1.4) mg/dl Est Cr Clr Drug Dosing 62.7 ml/min Est GFR ( Amer) 34.7 Est GFR (Non-Af Amer) 29.9 BUN/Creatinine Ratio 21.3 H (10-20) Glucose 213 H (70-99) mg/dl Calcium 9.5 (8.5-10.1) mg/dl Phosphorus 2.3 L (2.5-4.9) mg/dl Magnesium 1.9 (1.8-2.4) mg/dl Total Bilirubin 0.7 (0.2-1) mg/dl AST 28 (15-37) U/L ALT 59 (12-78) U/L Alkaline Phosphatase 85 (45-117) U/L Total Protein 8.5 H (6.4-8.2) gm/dl Albumin 4.4 (3.4-5.0) gm/dl Globulin 4.1 H (2.5-4.0) gm/dl Albumin/Globulin Ratio 1.1 (0.9-2) Lipase 176 (73-393) U/L Imaging Data Attestation: I personally reviewed and interpreted this imaging study as follows: Radiologist's Impression: CT SCAN OF THE ABDOMEN AND PELVIS WITHOUT CONTRAST CLINICAL HISTORY: N/V/D X 6 DAYS, ELEVATED CREATINE COMPARISON STUDY: No previous studies for comparison. TECHNIQUE: CT scan of the abdomen and pelvis was performed from the lung bases to the proximal femurs. Images are reviewed in the axial, sagittal, and coronal planes. IV contrast was not administered for this examination. A dose lowering technique was utilized adhering to the principles of ALARA. CT DOSE: 4148.72 mGy.cm FINDINGS: Lower chest: The heart is normal in size and configuration, without pericardial effusion. The lung bases and pleural spaces are clear. Liver: There is hepatic steatosis. No focal masses are visualized on this nonco ntrast study. Gallbladder: Unremarkable. Spleen: Normal in size and attenuation. Pancreas: Unremarkable. Adrenal glands: Unremarkable. Kidneys: There is a 12 mm fat-containing upper pole right renal mass consistent with angiomyolipoma Bowel: There are no transition zones indicate bowel obstruction. There is no evidence of acute diverticulitis. By history the appendix is surgically absent. Peritoneum: There is no intraperitoneal free air or abdominal ascites. There is a small fat-containing umbilical hernia. Vasculature: The abdominal aorta is normal in course and caliber. Adenopathy: None. Pelvic viscera: The bladder, and pelvic viscera are unremarkable. Skeletal structures: No destructive osseous lesions are seen. There are degenerative changes present within the cervical spine with multilevel disc osteophyte complexes. There is multilevel spinal stenosis IMPRESSION: 1. No acute intra-abdominal or pelvic findings 2. No evidence of bowel obstruction. No evidence of free air 3. No acute inflammatory changes 4. No renal, ureteral, or bladder calculi identified 5. Hepatic steatosis 6. 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 Small fat-containing umbilical hernia 8. Multilevel lumbar spinal stenosis Blood Pressure Blood Pressure Findings: Normal blood pressure Blood Pressure Disposition: further management by hospitalist TIANA Narrative See ED Course. Impression & Plan SALINA (acute kidney injury), Intractable vomiting with nausea, Diarrhea Discharge Plan Visit Data *Final* Discharge Date/Time: 12/14/19 13:38 Chief Complaint: Vomiting Stated Complaint: VOMITING,DIARRHEA ED Provider: Sanjuana Pineda ED Midlevel Provider: Tom Moy Discharge Problem: SALINA (acute kidney injury), Intractable vomiting with nausea, Diarrhea Patient Disposition: Admitted As Inpatient Discharge Instructions Interventions: ED Discharge Assessment Last Done: 12/14/19 13:38
--- NOTE | 2019-12-14 12:23 | CT Scan Report ---
CT SCAN OF THE ABDOMEN AND PELVIS WITHOUT CONTRAST CLINICAL HISTORY: N/V/D X 6 DAYS, ELEVATED CREATINE COMPARISON STUDY: No previous studies for comparison. TECHNIQUE: CT scan of the abdomen and pelvis was performed from the lung bases to the proximal femurs . Images are reviewed in the axial, sagittal, and coronal planes. IV contrast was not administered fo r this examination. A dose lowering technique was utilized adhering to the principles of ALARA. CT DOSE: 4148.72 mGy.cm FINDINGS: Lower chest: The heart is normal in size and configuration, without pericardial effusion. The lung ba ses and pleural spaces are clear. Liver: There is hepatic steatosis. No focal masses are visualized on this noncontrast study. Gallbladder: Unremarkable. Spleen: Normal in size and attenuation. Pancreas: Unremarkable. Adrenal glands: Unremarkable. Kidneys: There is a 12 mm fat-containing upper pole right renal mass consistent with angiomyolipoma Bowel: There are no transition zones indicate bowel obstruction. There is no evidence of acute divert iculitis. By history the appendix is surgically absent. Peritoneum: There is no intraperitoneal free air or abdominal ascites. There is a small fat-containin g umbilical hernia. Vasculature: The abdominal aorta is normal in course and caliber. Adenopathy: None. Pelvic viscera: The bladder, and pelvic viscera are unremarkable. Skeletal structures: No destructive osseous lesions are seen. There are degenerative changes present within the cervical spine with multilevel disc osteophyte complexes. There is multilevel spinal steno sis IMPRESSION: 1. No acute intra-abdominal or pelvic findings 2. No evidence of bowel obstruction. No evidence of free air 3. No acute inflammatory changes 4. No renal, ureteral, or bladder calculi identified 5. Hepatic steatosis 6. 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 Small fat-containing umbilical hernia 8. Multilevel lumbar spinal stenosis ACT 112: Negative or not required by law. Electronically signed by: Constantine Reid M.D. 12/14/2019 12:22 PM
[2019-12-14] MEDS ORDERED: FAMOTIDINE 20MG IV PUSH 20 MG/5 ML SYR IV STA (12:56)
[2019-12-14] MEDS ORDERED: GLUCOSE 10 TABS/TUBE PO PRN (13:54)
[2019-12-14] MEDS ORDERED: CARBOHYDRATES FOR HYPOGLYCEMIA PO PRN (13:54)
[2019-12-14] MEDS ORDERED: DEXTROSE 50% 50 ML SYRINGE IV PRN (13:54)
[2019-12-14] MEDS ORDERED: ACETAMINOPHEN 325 MG TAB PO PRN (13:54)
[2019-12-14] MEDS ORDERED: ONDANSETRON INJ 2 MG/ML 2 ML VIAL IV PRN (13:54)
[2019-12-14] MEDS ORDERED: GLUCAGON FOR INJ 1 MG VIAL SQ PRN (13:54)
[2019-12-14] MEDS ORDERED: GLUCOSE 40% GEL 15 GM TUBE PO PRN (13:54)
--- NOTE | 2019-12-14 14:15 | History & Physical Report ---
Date of Service December 14, 2019 Assessment & Plan (1) Vomiting and diarrhea: This is a 44-year-old male who has significant PMH of T2DM, HTN, LEIGH, DESTINY, migraine, obesity who presents to ED secondary to persistent nausea/vomiting/diarrhea x6 days. Seen in ED on 12/10/19, Stool for enteric pathogens and C. difficile negative at that time. WBC 19 K, creatinine 1.87. Patient treated with supportive care. Returns today secondary to persistent and worsening symptoms. Unable to tolerate oral intake secondary to diarrhea and vomiting undigested food. Today WBC 15 K, BUN 54, creatinine 2.54. Patient with persistent nausea, vomiting, diarrhea and acute kidney injury secondary to dehydration volume contraction. possible viral vs bacterial gastroenteritis, ibs, gastroparesis flare Admit to telemetry IVF 150cc/hr clear liquid diet consult GI - appreciate their input repeat stool culture, stool for giardia, ova and parasite protonix 40mg daily (2) SALINA (acute kidney injury): baseline cr 1.1-1.2 bun/cr 54 and 2.54 today likely 2/2 to Dehydration and volume contraction due to n/v/d continue IVF resuscitation Repeat labs in a.m. (3) DM type 2 (diabetes mellitus, type 2): Last A1c 7.3 01/2019 On Janumet and metformin, hold both Lantus/NovoLog per protocol (4) HTN (hypertension): blood pressure stable Hold HCTZ, Lisinopril, Aldactone for now continue coreg, with hold parameters (5) Anxiety: continue citalopram (6) DVT prophylaxis: Heparin Disposition: admit to tele Follow up: PCP Dr. Vizcaino upon discharge Pt was seen and examined in collaboration with Dr. Holcomb, please see addendum History of Present Illness Primary Care Provider: Mikey Vizcaino MD This is a 44-year-old male who has significant PMH of T2DM, HTN, LEIGH, DESTINY, migraine, obesity who presents to ED secondary to persistent nausea/vomiting/diarrhea x6 days. Symptoms started on Tuesday, approximately 6 days ago. He developed profuse, watery, yellow diarrhea with multiple episodes daily, 15-20. "My bowels only started times since last Tuesday." The diarrhea came first and then shortly after he developed nausea and emesis. He is unable to keep anything down orally. He cannot keep liquids down but states, "they come outt the bottom right away." Emesis contains undigested food. He denies any fevers but admits to chills after bowel movements. He does complain of epigastric and periumbilical abdominal pain prior to having a BM. Describes it as crampy and is relieved with having BM. He does not have any constant abdominal pain. He denies any lightheadedness, dizziness, chest pain, short breath, palpitations, cough, hemoptysis, hematemesis, melena, hematochezia. Overall appetite has been poor. He has switched to brat diet which has not significantly helped symptoms. Is also tried [id number] Kaopectate without relief. is at bedside. No known sick contacts. No recent antibiotic use, travel or camping. He was seen in ED by Dr. Rodrigues on 12/10. He had stool studies obtained which were negative for enteric pathogens as well as C. difficile. He did have leukocytosis at 19,000. Due to persistent symptoms and inability to eat or drink he opted to present to ED. He has been taking his medication as prescribed except this morning. These include metformin, Janumet, lisinopril, Aldactone and HCTZ. He does follow [facility] and underwent EGD 01/2019 with dilation. Placed on PPI. Has recently stopped that due to feeling like it produces increased bile smelling belching. There is concern for underlying gastroparesis. In ED patient remained hemodynamically stable and was afebrile. Lab abnormalities notable for leukocytosis 15.6 1K, neutrophilia and monocytosis, sodium 130, K4.2, BUN 54, creatinine 2.54, glucose 213, lipase 176. CT scan of abdomen pelvis was performed secondary to persistence of symptoms which is negative for acute abnormality. 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 Allergies Allergy/AdvReac Type Severity Reaction Status Date / Time doxazosin [From [facility]] Allergy Unknown Verified 12/14/19 13:03 empagliflozin Allergy Unknown Verified 12/14/19 13:03 [From [facility]] Home Medications Home Medications Medication Instructions Recorded Confirmed Type Janumet 1 tab PO QAM 11/26/18 12/14/19 History amlodipine [Norvasc] 10 mg PO HS 11/26/18 12/14/19 History carvedilol [Coreg] 1 tab PO BID 11/26/18 12/14/19 History citalopram [Celexa] 40 mg PO QAM 11/26/18 12/14/19 History hydrochlorothiazide 25 mg PO QAM 11/26/18 12/14/19 History lisinopril [Zestril] 40 mg PO QAM 11/26/18 12/14/19 History metformin [Glucophage XR] 1,000 mg PO QAM 11/26/18 12/14/19 History simvastatin [Zocor] 20 mg PO HS 11/26/18 12/14/19 History spironolactone [Aldactone] 1.5 tab PO QAM 11/26/18 12/14/19 History doxepin 75 mg PO HS 12/14/19 12/14/19 History gabapentin 200 mg PO HS 12/14/19 12/14/19 History ondansetron 4 mg PO Q8H PRN 12/14/19 12/14/19 History Past Med/Surg History Medical History Anxiety (Chronic) DM type 2 (diabetes mellitus, type 2) (Chronic) Heartburn current issues - Also describes feeling that pill is stuck and has lump in throat HTN (hypertension) (Chronic) Morbid obesity LEIGH on CPAP (Chronic) Surgical History History of appendectomy (Chronic) Family History Father COPD (chronic obstructive pulmonary disease) Heart disease Diabetes Mother Heart disease CABG Social History Preferred Language: Croatian Communication Ability: Effective Credit Control Clerk Required: No Beliefs That Will Affect Care: None Current Living Situation: Spouse Other Information That Helps Us Care for You: No Feels Safe at Home: Yes Safety Concerns: Feels Safe At This Time Smoking Status: Never smoker Hx Alcohol Use: Yes Alcohol type: beer Hx Substance Use: No Review of Systems Review of Systems: All systems reviewed & are unremarkable except as noted in HPI & below Physical Exam Physical Exam: Constitutional: WD/WN, vitals as above, NAD, sitting up in bed, pleasant, conversing easily Head: Normocephalic, Atraumatic Eyes: PERRL, conjunctivae normal, anicteric sclerae ENMT: external ear and nose normal, oropharynx normal Neck: trachea midline, no thyromegaly normal visual inspection Respiratory: normal respiratory effort, lungs clear to auscultation, no wheeze, rales, rhonchi. Normal insp/exp effort, no accessory muscle use Cardiovascular: RRR, no murmur, no edema Vessels: no JVD or carotid bruit Chest: normal inspection of chest Abdomen: normal bowel sounds, soft, nontender, no hepatosplenomegaly Musculoskeletal: no cyanosis or clubbing, extremities motor strength 5/5 Skin: no rashes, warm and dry moderate turgor Neurologic: PERRL, EOMI, accommodation nl, no face palsy, no dysarthria CN's II-XI intact bilaterally and moves all extremities Psychiatric: A+Ox3, euthymic affect Lymphatic: no cervical or axillary lymphadenopathy : deferred Results & Data Vital Signs (Past 12 Hours) Vital Signs Temp Pulse Pulse Resp BP BP Pulse Ox 12/14/19 13:31 78 14 143/77 H 12/14/19 13:30 78 23 12/14/19 13:02 79 13 12/14/19 13:01 77 17 142/63 H 12/14/19 13:00 77 17 12/14/19 12:32 78 14 119/61 12/14/19 12:30 80 15 12/14/19 12:00 80 15 98 12/14/19 11:30 80 14 98 12/14/19 11:08 81 10 L 96 12/14/19 10:59 83 12 126/81 97 12/14/19 10:57 90 18 126/81 98 12/14/19 09:58 36.4 C L 91 H 20 120/82 97 Laboratory Results Short CBC 12/14/19 Range/Units 10:24 WBC 15.61 H (4.8-10.8) K/uL Hgb 14.7 (14.0-18.0) g/dL Hct 42.1 (42-52) % Plt Count 329 (130-400) K/uL BMP 12/14/19 10:24 Sodium 130 L Potassium 4.2 Chloride 105 Carbon Dioxide 19 L BUN 54 H Creatinine 2.54 H Glucose 213 H Calcium 9.5 Liver Function 12/14/19 Range/Units 10:24 Total Bilirubin 0.7 (0.2-1) mg/dl AST 28 (15-37) U/L ALT 59 (12-78) U/L Alkaline Phosphatase 85 (45-117) U/L Albumin 4.4 (3.4-5.0) gm/dl Diagnostic Findings CT abd/pelvis: IMPRESSION: 1. No acute intra-abdominal or pelvic findings 2. No evidence of bowel obstruction. No evidence of free air 3. No acute inflammatory changes 4. No renal, ureteral, or bladder calculi identified 5. Hepatic steatosis 6. 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 Small fat-containing umbilical hernia 8. Multilevel lumbar spinal stenosis Medications Administered Sodium Chloride (Nss 1000ml) 1,000 mls @ 150 mls/hr IV .Q6H40M CONNOR Stop: 01/13/20 13:53 Last Admin: 12/14/19 14:13 Dose: 150 mls/hr Documented by: [id number] Discontinued Medications Sodium Chloride (Nss 1000ml) 1,000 mls @ 999 mls/hr IV .Q1H1M CONNOR Stop: 12/14/19 13:23 Last Admin: 12/14/19 13:01 Dose: 999 mls/hr Documented by: [id number] Infusion: 12/14/19 13:01 Dose: 0 mls/hr Documented by: [id number] Admin: 12/14/19 11:28 Dose: 999 mls/hr Documented by: [id number] Famotidine (Pepcid 20mg Iv Push) 20 mg in 5 mls @ 2.5 mls/min IV NOW STA Stop: 12/14/19 12:57 Last Admin: 12/14/19 13:04 Dose: 2.5 mls/min Documented by: [id number] Ondansetron HCl (Zofran) 4 mg IV NOW STA Stop: 12/14/19 11:23 Last Admin: 12/14/19 11:27 Dose: 4 mg Documented by: [id number] Ondansetron HCl (Zofran) 4 mg IV NOW STA Stop: 12/14/19 12:57 Last Admin: 12/14/19 13:04 Dose: 4 mg Documented by: [id number] Code Status & VTE Plan Code Status Full Code VTE Prophylaxis Plan VTE Prophylaxis will be ordered: Yes Supervising Physician Co-Signing Physician Notes Care coordinated with Renu Comer PA-C. Agree with above note. Patient seen and examined. Please refer to her notes for full details. Vital signs reviewed. Physical exam: General exam: Alert and oriented. Not in acute distress. CVS: S1 and S2 heard, regular rate and rhythm, no murmurs. RS: Clear to auscultation, no wheezing or crackles. ABD: Soft, bowel sounds present, nontender, no distention. HOGSHEAD WEIGHER: Nonfocal. EXT: No edema, no erythema. Labs: Reviewed. Assessment and plan: 44M with hx of DM, Obesity, LEIGH presents with 6 days duration of watery diarrhea and n/v. No abdominal pain or fevers. Hemodynamics stable Ongoing n/v and diarrhea recent stool, cx negative follow repeat c diff follow ova/parasites if c diff negative plan for imodium prn seen by GI started on iv Reglan for possible gastroparesis clears, iv fluids, antiemetics plan for egd and colonoscopy if no improvement as per GI. DM hold po meds ISS LEIGH cpap q hs Other diagnosis and plan of care as per Renu Comer PA-C. Angelito villareal MD.
[2019-12-14] MEDS ORDERED: SIMETHICONE 80 MG CHEW PO PRN (14:38)
--- NOTE | 2019-12-14 14:49 | Gastrointestinal Consultation ---
Date of Consultation December 14, 2019 Assessment & Plan (1) SALINA (acute kidney injury): (2) Intractable vomiting with nausea: (3) Diarrhea: Pt is a 44 y/o male, admitted with SALINA related to persistent n/v, diarrhea since Tuesday. He has hx of gas, bloating, and suspected gastroparesis. Pr evious Cdiff done in ED 12/[address] w/o acute inflammatory or obstructive processes. Denies antibx, sick exposure, travels. DDX: GI infection, gastroparesis flare, IBS, less likely IBD - IVF hydration - Zofran prn n/v - Consider adding Reglan 5mg IV BID to promote GI motility and improve suspected possible gastroparesis flare - Protonix 40mg daily - Repeat stool cx, Cdiff; if negative can try Imodium prn to slow down diarrhea. If diarrhea persist, will consider inpt EGD + colonoscopy eval Attg add: I interviewed and examined pt, reviewed chart and labs. Pt with h/o burping and bloating sups for gastroparesis, now with intractable n/v/d x 1 week. Labs show increased creat, bicarb 19 with nl AG, normal CT. A/P: Presumed gastroenteritis, recs as above History of Present Illness Reason for Consultation: Persistent nausea, vomiting, diarrhea; hx of gastroparesis Requesting Physician: Dr. Angelito Holcomb Attending Physician: Dr. Johanna Pierson History of Present Illness Pt is a 44 y/o male who presents to ED today w persistent n/v and diarrhea symptoms since Tuesday. He's been having issues w upper abdominal bloating, epigastric and LLQ abd discomfort. He feels very bloated and gassy. Can feel gas moving through abdomen and he would feel better if he belches or pass flatus. He reports foul smelly flatus. Saw MIGUEL Bautista in October, arranged for gastric emptying study to r/o gastroparesis (diabetic, last A1C 7.3) but had to cancel study due to work issue. He was given a trial increase of his Omeprazole to 40mg daily, and also Dicyclomine. However felt symptoms are worse since starting these meds. He denies any food triggers, even feel bad with BRAT diet. His diarrhea started Tuesday. Reports yellow stools, denies rectal b leeding. He denies recent antibx, sick exposure, travels. Chart reviewed. Labs noteable for increased WBC 15K. Na 130, BUN/Cr increased from baseline 54/2.3. LFTs and lipase normal. CT abd/pelvis w/o contrast: 1. No acute intra-abdominal or pelvic findings 2. No evidence of bowel obstruction. No evidence of free air 3. No acute inflammatory changes 4. No renal, ureteral, or bladder calculi identified 5. Hepatic steatosis 6. 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 Small fat-containing umbilical hernia 8. Multilevel lumbar spinal stenosis Cdiff from 12/10 negative. EGD 01/17/19 for dysphagia showed unremarkable study, esophagus dilated to 54Fr. Allergies Allergy/AdvReac Type Severity Reaction Status Date / Time doxazosin [From Cardura] Allergy Unknown Verified 12/14/19 13:03 empagliflozin Allergy Unknown Verified 12/14/19 13:03 [From [employer]] Home Medications Home Medications Medication Instructions Recorded Confirmed Type Janumet 1 tab PO QAM 11/26/18 12/14/19 History amlodipine [Norvasc] 10 mg PO HS 11/26/18 12/14/19 History carvedilol [Coreg] 1 tab PO BID 11/26/18 12/14/19 History citalopram [Celexa] 40 mg PO QAM 11/26/18 12/14/19 History hydrochlorothiazide 25 mg PO QAM 11/26/18 12/14/19 History lisinopril [Zestril] 40 mg PO QAM 11/26/18 12/14/19 History metformin [Glucophage XR] 1,000 mg PO QAM 11/26/18 12/14/19 History simvastatin [Zocor] 20 mg PO HS 11/26/18 12/14/19 History spironolactone [Aldactone] 1.5 tab PO QAM 11/26/18 12/14/19 History ondansetron 4 mg PO Q8H PRN 12/14/19 12/14/19 History Patient History Medical History Anxiety (Chronic) DM type 2 (diabetes mellitus, type 2) (Chronic) Heartburn current issues - Also describes feeling that pill is stuck and has lump in throat HTN (hypertension) (Chronic) Morbid obesity LEIGH on CPAP (Chronic) Surgical History History of appendectomy (Chronic) Family History Father COPD (chronic obstructive pulmonary disease) Heart disease Diabetes Mother Heart disease CABG Social History Preferred Language: Salvadorean Communication Ability: Effective Project Crew Worker Required: No Beliefs That Will Affect Care: None Current Living Situation: Spouse Other Information That Helps Us Care for You: No Feels Safe at Home: Yes Safety Concerns: Feels Safe At This Time Smoking Status: Never smoker Hx Alcohol Use: Yes Alcohol type: beer Hx Substance Use: No Results & Data ([facility]) Vital Signs (Past 12 Hours) Vital Signs Temp Pulse Pulse Resp BP BP Pulse Ox 12/14/19 14:25 76 12/14/19 13:54 36.7 C 97 H 18 130/76 96 12/14/19 13:31 78 14 143/77 H 12/14/19 13:30 78 23 12/14/19 13:02 79 13 12/14/19 13:01 77 17 142/63 H 12/14/19 13:00 77 17 12/14/19 12:32 78 14 119/61 12/14/19 12:30 80 15 12/14/19 12:00 80 15 98 12/14/19 11:30 80 14 98 12/14/19 11:08 81 10 L 96 12/14/19 10:59 83 12 126/81 97 12/14/19 10:57 90 18 126/81 98 12/14/19 09:58 36.4 C L 91 H 20 120/82 97
[2019-12-14 15:23] LABS: Magnesium 1.9 mg/dl (1.8-2.4); Phosphorus 2.3 mg/dl (2.5-4.9)
[2019-12-14 16:10] LABS: Appearance Urine Clear (Clear); Bilirubin Urine Negative (Negative); Blood Urine Negative (Negative); Color Urine Yellow; Glucose Urine UA Negative (Negative); Ketones Urine Negative (Negative); Leukocyte Esterase Urine Negative (Negative); Nitrite Urine Negative (Negative); Protein Urine Negative (Negative); Specific Gravity Urine 1.023 (1.000-1.030); Urobilinogen Urine Negative (Negative)
[2019-12-14] MEDS: carvediloL 25 MG TAB PO SCH (17:13)
[2019-12-14] MEDS: INSULIN ASPART 100 UNITS/ML 3 ML PEN SC SCH ×2 (17:15→20:16)
[2019-12-14] MEDS: INSULIN GLARGINE SOLOSTAR 100 UNITS/ML 3 ML PEN SC SCH (20:15)
[2019-12-14] MEDS: HEPARIN SOD 5,000 UNIT/0.5 ML VIAL SQ SCH (20:15)
[2019-12-14] MEDS: DOXEPIN HCL 75 MG CAPSULE PO SCH (22:23)
[2019-12-14] MEDS: GABAPENTIN 100 MG CAP PO SCH (22:23)
[2019-12-15] MEDS: HEPARIN SOD 5,000 UNIT/0.5 ML VIAL SQ SCH ×3 (05:29→20:32)
[2019-12-15 07:38] LABS: Basophils # (auto) 0.05 K/uL (0-0.2); Basophils % (auto) 0.5 %; Eosinophils # (auto) 0.45 K/uL (0-0.5); Eosinophils % (auto) 4.7 %; Hemoglobin 12.7 g/dL (14.0-18.0); Immature Granulocytes # (auto) 0.09 K/uL (0.00-0.02); Immature Granulocytes % (auto) 0.9 %; Lymphocytes # (auto) 3.04 K/uL (1.2-3.4); Lymphocytes % (auto) 31.9 %; Mean Corpuscular Hemoglobin 29.1 pg (25-34); Mean Corpuscular Hgb Conc 33.4 g/dL (32-36); Mean Platelet Volume 9.4 fL (7.4-10.4); Monocytes # (auto) 0.76 K/uL (0.11-0.59); Neutrophils # (auto) 5.15 K/uL (1.4-6.5); Platelet Count 241 K/uL (130-400); RDW Coefficient of Variation 14.3 % (11.5-14.5); RDW Standard Deviation 44.9 fL (36.4-46.3); Red Blood Count 4.37 M/uL (4.7-6.1); White Blood Count 9.54 K/uL (4.8-10.8)
[2019-12-15 07:41] LABS: Estimated Average Glucose 232 mg/dl; Hemoglobin A1C 9.7 % (4.5-5.6)
[2019-12-15] MEDS: INSULIN ASPART 100 UNITS/ML 3 ML PEN SC SCH ×4 (07:59→20:29)
[2019-12-15] MEDS: CITALOPRAM 40 MG TAB PO SCH (07:59)
[2019-12-15] MEDS: PANTOprazole 40 MG TAB PO SCH (07:59)
[2019-12-15] MEDS: SODIUM CHLORIDE 0.9% 1000ML 1,000 ML IV SCH ×4 (07:59→21:23)
[2019-12-15] MEDS: carvediloL 25 MG TAB PO SCH ×2 (07:59→17:32)
[2019-12-15] MEDS: INSULIN GLARGINE SOLOSTAR 100 UNITS/ML 3 ML PEN SC SCH ×2 (08:00→20:28)
[2019-12-15 08:04] LABS: BUN Creatinine Ratio 20.7 (10-20); Calcium 8.6 mg/dl (8.5-10.1); Est GFR (Non-African American) 42.3; Magnesium 1.6 mg/dl (1.8-2.4); Potassium 3.8 mmol/L (3.5-5.1)
--- NOTE | 2019-12-15 09:10 | Hospitalist Progress Note ---
Date of Service December 15, 2019 Assessment & Plan (1) Vomiting and diarrhea: This is a 44-year-old male who has significant PMH of T2DM, HTN, LEIGH, DESTINY, migraine, obesity who presents to ED secondary to persistent nausea/vomiting/diarrhea x6 days. Seen in ED on 12/10/19, Stool for enteric pathogens and C. difficile negative at that time. WBC 19 K, creatinine 1.87. Patient treated with supportive care. Returns today secondary to persistent and worsening symptoms. Unable to tolerate oral intake secondary to diarrhea and vomiting undigested food. WBC 15 K, BUN 54, creatinine 2.54. Patient with persistent nausea, vomiting, diarrhea and acute kidney injury secondary to dehydration volume contraction. possible viral vs bacterial gastroenteritis, ibs, gastroparesis flare Admit to telemetry IVF 150cc/hr clear liquid diet consult GI - appreciate their input - Consider adding Reglan 5mg IV BID to promote GI motility and improve suspected possible gastroparesis flare - Protonix 40mg daily - Repeat stool cx, Cdiff; if negative can try Imodium prn to slow down diarrhea. If diarrhea persist, will consider inpt EGD + colonoscopy eval - per GI, likely Gastroenteritis (2) SALINA (acute kidney injury): baseline cr 1.1-1.2 bun/cr 54 and 2.54 today likely 2/2 to Dehydration and volume contraction due to n/v/d continue IVF resuscitation Cr down, improved, cont. to monitor (3) DM type 2 (diabetes mellitus, type 2): Last A1c 7.3 01/2019 On Janumet and metformin, hold both Lantus/NovoLog per protocol (4) HTN (hypertension): blood pressure stable Hold HCTZ, Lisinopril, Aldactone for now continue coreg, with hold parameters (5) Anxiety: continue citalopram (6) DVT prophylaxis: Heparin Disposition: admit to tele Follow up: PCP Dr. Vizcaino upon discharge Admission and Anticipated Discharge Date Admission Date: December 14, 2019 Subjective Patient is sitting up in bed, in no acute distress. Denies any fevers, chills, chest pain, shortness of breath. He also denies abdominal pain, however continues to have loose stools. Review of Systems Review of Systems: All systems reviewed & are unremarkable except as noted in HPI & below Constitutional: no fever and no chills Respiratory: no cough and no dyspnea Cardiovascular: no chest pain and no palpitations Gastrointestinal: + nausea and + diarrhea/loose stools; no abdominal pain and no vomiting Physical Exam Physical Exam: Constitutional: WD/WN, morbidly obese male, sitting up in bed, in NAD Head: Normocephalic, Atraumatic Eyes: PERRL, EOMI, conjunctivae normal, anicteric sclerae ENMT: external ear and nose normal, oropharynx normal Neck: trachea midline, no thyromegaly normal visual inspection Respiratory: normal respiratory effort, lungs clear to auscultation, no wheeze, rales, rhonchi. Normal insp/exp effort, no accessory muscle use Cardiovascular: RRR, no murmur, no edema Vessels: no JVD or carotid bruit Chest: normal inspection of chest Abdomen: normal bowel sounds, soft, nontender Musculoskeletal: no cyanosis or clubbing, extremities motor strength 5/5, moves extremities spontaneously Skin: no rashes, warm and dry Neurologic: PERRL, EOMI, accommodation nl, no face palsy, no dysarthria CN's II-XI intact bilaterally and moves all extremities Psychiatric: A+Ox3, euthymic affect Results & Data ([facility]) Vital Signs (Past 12 Hours) Vital Signs Temp Pulse Pulse Resp BP Pulse Ox 12/15/19 07:00 36.8 C 67 20 132/73 98 12/15/19 03:06 37 C 72 20 116/68 95 12/15/19 00:46 75 12/14/19 23:00 37 C 74 20 109/65 96 Laboratory Results 12/15/19 12/15/19 12/15/19 Range/Units 07:45 07:01 07:01 WBC 9.54 (4.8-10.8) K/uL RBC 4.37 L (4.7-6.1) M/uL Hgb 12.7 L (14.0-18.0) g/dL Hct 38.0 L (42-52) % MCV 87.0 (80-100) fL MCH 29.1 (25-34) pg MCHC 33.4 (32-36) g/dL RDW Std Deviation 44.9 (36.4-46.3) fL RDW Coeff of Sarah 14.3 (11.5-14.5) % Plt Count 241 (130-400) K/uL MPV 9.4 (7.4-10.4) fL Immature Gran % (Auto) 0.9 % Neut % (Auto) 54.0 % Lymph % (Auto) 31.9 % [place] % (Auto) 8.0 % Eos % (Auto) 4.7 % Baso % (Auto) 0.5 % Immature Gran # (Auto) 0.09 H (0.00-0.02) K/uL Neut # (Auto) 5.15 (1.4-6.5) K/uL Lymph # (Auto) 3.04 (1.2-3.4) K/uL [place] # (Auto) 0.76 H (0.11-0.59) K/uL Eos # (Auto) 0.45 (0-0.5) K/uL Baso # (Auto) 0.05 (0-0.2) K/uL Sodium 135 L (136-145) mmol/L Potassium 3.8 (3.5-5.1) mmol/L Chloride 111 H (98-107) mmol/L Carbon Dioxide 16 L (21-32) mmol/L Anion Gap 8.0 (3-11) BUN 40 H (7-18) mg/dl Creatinine 1.91 H D (0.6-1.4) mg/dl Est Cr Clr Drug Dosing 84.0 ml/min Est GFR ( Amer) 49.0 Est GFR (Non-Af Amer) 42.3 BUN/Creatinine Ratio 20.7 H (10-20) Glucose 176 H (70-99) mg/dl POC Glucose 185 H (70-99) mg/dl Estimat Average Glucose mg/dl Hemoglobin A1c (4.5-5.6) % Calcium 8.6 (8.5-10.1) mg/dl Phosphorus (2.5-4.9) mg/dl Magnesium 1.6 L (1.8-2.4) mg/dl Total Bilirubin (0.2-1) mg/dl AST (15-37) U/L ALT (12-78) U/L Alkaline Phosphatase (45-117) U/L Total Protein (6.4-8.2) gm/dl Albumin (3.4-5.0) gm/dl Globulin (2.5-4.0) gm/dl Albumin/Globulin Ratio (0.9-2) Lipase (73-393) U/L Urine Color Urine Appearance (Clear) Urine pH (4.5-7.5) Ur Specific [place] (1.000-1.030) Urine Protein (Negative) Urine Glucose (UA) (Negative) Urine Ketones (Negative) Urine Blood (Negative) Urine Nitrite (Negative) Urine Bilirubin (Negative) Urine Urobilinogen (Negative) Ur Leukocyte Esterase (Negative) Stl C. diff Tox B Gene (Neg) Stool Comments Giardia Antigen 12/15/19 12/14/19 12/14/19 Range/Units 07:01 20:03 16:46 WBC (4.8-10.8) K/uL RBC (4.7-6.1) M/uL Hgb (14.0-18.0) g/dL Hct (42-52) % MCV (80-100) fL MCH (25-34) pg MCHC (32-36) g/dL RDW Std Deviation (36.4-46.3) fL RDW Coeff of Sarah (11.5-14.5) % Plt Count (130-400) K/uL MPV (7.4-10.4) fL Immature Gran % (Auto) % Neut % (Auto) % Lymph % (Auto) % [place] % (Auto) % Eos % (Auto) % Baso % (Auto) % Immature Gran # (Auto) (0.00-0.02) K/uL Neut # (Auto) (1.4-6.5) K/uL Lymph # (Auto) (1.2-3.4) K/uL [place] # (Auto) (0.11-0.59) K/uL Eos # (Auto) (0-0.5) K/uL Baso # (Auto) (0-0.2) K/uL Sodium (136-145) mmol/L Potassium (3.5-5.1) mmol/L Chloride (98-107) mmol/L Carbon Dioxide (21-32) mmol/L Anion Gap (3-11) BUN (7-18) mg/dl Creatinine (0.6-1.4) mg/dl Est Cr Clr Drug Dosing ml/min Est GFR ( Amer) Est GFR (Non-Af Amer) BUN/Creatinine Ratio (10-20) Glucose (70-99) mg/dl POC Glucose 163 H 173 H (70-99) mg/dl Estimat Average Glucose 232 mg/dl Hemoglobin A1c 9.7 H (4.5-5.6) % Calcium (8.5-10.1) mg/dl Phosphorus (2.5-4.9) mg/dl Magnesium (1.8-2.4) mg/dl Total Bilirubin (0.2-1) mg/dl AST (15-37) U/L ALT (12-78) U/L Alkaline Phosphatase (45-117) U/L Total Protein (6.4-8.2) gm/dl Albumin (3.4-5.0) gm/dl Globulin (2.5-4.0) gm/dl Albumin/Globulin Ratio (0.9-2) Lipase (73-393) U/L Urine Color Urine Appearance (Clear) Urine pH (4.5-7.5) Ur Specific [place] (1.000-1.030) Urine Protein (Negative) Urine Glucose (UA) (Negative) Urine Ketones (Negative) Urine Blood (Negative) Urine Nitrite (Negative) Urine Bilirubin (Negative) Urine Urobilinogen (Negative) Ur Leukocyte Esterase (Negative) Stl C. diff Tox B Gene (Neg) Stool Comments Giardia Antigen 12/14/19 12/14/19 12/14/19 Range/Units 15:45 15:45 15:45 WBC (4.8-10.8) K/uL RBC (4.7-6.1) M/uL Hgb (14.0-18.0) g/dL Hct (42-52) % MCV (80-100) fL MCH (25-34) pg MCHC (32-36) g/dL RDW Std Deviation (36.4-46.3) fL RDW Coeff of Sarah (11.5-14.5) % Plt Count (130-400) K/uL MPV (7.4-10.4) fL Immature Gran % (Auto) % Neut % (Auto) % Lymph % (Auto) % [place] % (Auto) % Eos % (Auto) % Baso % (Auto) % Immature Gran # (Auto) (0.00-0.02) K/uL Neut # (Auto) (1.4-6.5) K/uL Lymph # (Auto) (1.2-3.4) K/uL [place] # (Auto) (0.11-0.59) K/uL Eos # (Auto) (0-0.5) K/uL Baso # (Auto) (0-0.2) K/uL Sodium (136-145) mmol/L Potassium (3.5-5.1) mmol/L Chloride (98-107) mmol/L Carbon Dioxide (21-32) mmol/L Anion Gap (3-11) BUN (7-18) mg/dl Creatinine (0.6-1.4) mg/dl Est Cr Clr Drug Dosing ml/min Est GFR ( Amer) Est GFR (Non-Af Amer) BUN/Creatinine Ratio (10-20) Glucose (70-99) mg/dl POC Glucose (70-99) mg/dl Estimat Average Glucose mg/dl Hemoglobin A1c (4.5-5.6) % Calcium (8.5-10.1) mg/dl Phosphorus (2.5-4.9) mg/dl Magnesium (1.8-2.4) mg/dl Total Bilirubin (0.2-1) mg/dl AST (15-37) U/L ALT (12-78) U/L Alkaline Phosphatase (45-117) U/L Total Protein (6.4-8.2) gm/dl Albumin (3.4-5.0) gm/dl Globulin (2.5-4.0) gm/dl Albumin/Globulin Ratio (0.9-2) Lipase (73-393) U/L Urine Color Yellow Urine Appearance Clear (Clear) Urine pH 5.0 (4.5-7.5) Ur Specific [place] 1.023 (1.000-1.030) Urine Protein Negative (Negative) Urine Glucose (UA) Negative (Negative) Urine Ketones Negative (Negative) Urine Blood Negative (Negative) Urine Nitrite Negative (Negative) Urine Bilirubin Negative (Negative) Urine Urobilinogen Negative (Negative) Ur Leukocyte Esterase Negative (Negative) Stl C. diff Tox B Gene Negative Cdiff Gene (Neg) Stool Comments Pending Giardia Antigen Pending 12/14/19 12/14/19 12/14/19 Range/Units 10:24 10:24 10:24 WBC 15.61 H (4.8-10.8) K/uL RBC 4.92 (4.7-6.1) M/uL Hgb 14.7 (14.0-18.0) g/dL Hct 42.1 (42-52) % MCV 85.6 (80-100) fL MCH 29.9 (25-34) pg MCHC 34.9 (32-36) g/dL RDW Std Deviation 43.4 (36.4-46.3) fL RDW Coeff of Sarah 14.0 (11.5-14.5) % Plt Count 329 (130-400) K/uL MPV 9.4 (7.4-10.4) fL Immature Gran % (Auto) 1.2 % Neut % (Auto) 64.1 % Lymph % (Auto) 21.6 % [place] % (Auto) 10.4 % Eos % (Auto) 2.4 % Baso % (Auto) 0.3 % Immature Gran # (Auto) 0.19 H (0.00-0.02) K/uL Neut # (Auto) 10.01 H (1.4-6.5) K/uL Lymph # (Auto) 3.37 (1.2-3.4) K/uL [place] # (Auto) 1.62 H (0.11-0.59) K/uL Eos # (Auto) 0.37 (0-0.5) K/uL Baso # (Auto) 0.05 (0-0.2) K/uL Sodium 130 L (136-145) mmol/L Potassium 4.2 (3.5-5.1) mmol/L Chloride 105 (98-107) mmol/L Carbon Dioxide 19 L (21-32) mmol/L Anion Gap 6.0 (3-11) BUN 54 H (7-18) mg/dl Creatinine 2.54 H (0.6-1.4) mg/dl Est Cr Clr Drug Dosing 62.7 ml/min Est GFR ( Amer) 34.7 Est GFR (Non-Af Amer) 29.9 BUN/Creatinine Ratio 21.3 H (10-20) Glucose 213 H (70-99) mg/dl POC Glucose (70-99) mg/dl Estimat Average Glucose mg/dl Hemoglobin A1c (4.5-5.6) % Calcium 9.5 (8.5-10.1) mg/dl Phosphorus 2.3 L (2.5-4.9) mg/dl Magnesium 1.9 (1.8-2.4) mg/dl Total Bilirubin 0.7 (0.2-1) mg/dl AST 28 (15-37) U/L ALT 59 (12-78) U/L Alkaline Phosphatase 85 (45-117) U/L Total Protein 8.5 H (6.4-8.2) gm/dl Albumin 4.4 (3.4-5.0) gm/dl Globulin 4.1 H (2.5-4.0) gm/dl Albumin/Globulin Ratio 1.1 (0.9-2) Lipase 176 (73-393) U/L Urine Color Urine Appearance (Clear) Urine pH (4.5-7.5) Ur Specific [place] (1.000-1.030) Urine Protein (Negative) Urine Glucose (UA) (Negative) Urine Ketones (Negative) Urine Blood (Negative) Urine Nitrite (Negative) Urine Bilirubin (Negative) Urine Urobilinogen (Negative) Ur Leukocyte Esterase (Negative) Stl C. diff Tox B Gene (Neg) Stool Comments Giardia Antigen
[2019-12-15] MEDS: GABAPENTIN 100 MG CAP PO SCH (20:29)
[2019-12-15] MEDS: DOXEPIN HCL 75 MG CAPSULE PO SCH (20:33)
[2019-12-16] MEDS: SODIUM CHLORIDE 0.9% 1000ML 1,000 ML IV SCH ×3 (04:05→18:59)
[2019-12-16] MEDS: HEPARIN SOD 5,000 UNIT/0.5 ML VIAL SQ SCH ×3 (06:19→21:15)
[2019-12-16] MEDS: carvediloL 25 MG TAB PO SCH ×2 (07:24→16:11)
[2019-12-16] MEDS: PANTOprazole 40 MG TAB PO SCH (07:24)
[2019-12-16] MEDS: CITALOPRAM 40 MG TAB PO SCH (07:24)
[2019-12-16] MEDS: INSULIN ASPART 100 UNITS/ML 3 ML PEN SC SCH ×4 (07:58→21:16)
[2019-12-16] MEDS: INSULIN GLARGINE SOLOSTAR 100 UNITS/ML 3 ML PEN SC SCH ×2 (07:59→21:14)
--- NOTE | 2019-12-16 08:30 | Hospitalist Progress Note ---
Date of Service December 16, 2019 Assessment & Plan (1) Vomiting and diarrhea: This is a 44-year-old male who has significant PMH of T2DM, HTN, LEIGH, DESTINY, migraine, obesity who presents to ED secondary to persistent nausea/vomiting/diarrhea x6 days. Seen in ED on 12/10/19, Stool for enteric pathogens and C. difficile negative at that time. WBC 19 K, creatinine 1.87. Patient treated with supportive care. Returns today secondary to persistent and worsening symptoms. Unable to tolerate oral intake secondary to diarrhea and vomiting undigested food. WBC 15 K, BUN 54, creatinine 2.54. Patient with persistent nausea, vomiting, diarrhea and acute kidney injury secondary to dehydration volume contraction. possible viral vs bacterial gastroenteritis, ibs, gastroparesis flare Admit to telemetry IVF 150cc/hr clear liquid diet consult GI - appreciate their input - Consider adding Reglan 5mg IV BID to promote GI motility and improve suspected possible gastroparesis flare - Protonix 40mg daily - Repeat stool cx, Cdiff - pending, if negat. can try Imodium prn to slow down diarrhea. If diarrhea persist, will consider inpt EGD + colonoscopy eval - per GI, likely Gastroenteritis (2) SALINA (acute kidney injury): baseline cr 1.1-1.2 bun/cr 54 and 2.54 today likely 2/2 to Dehydration and volume contraction due to n/v/d continue IVF resuscitation Cr down, improved, cont. to monitor (3) DM type 2 (diabetes mellitus, type 2): Last A1c 7.3 01/2019 On Janumet and metformin, hold both Lantus/NovoLog per protocol (4) HTN (hypertension): blood pressure stable Hold HCTZ, Lisinopril, Aldactone for now continue coreg, with hold parameters (5) Anxiety: continue citalopram (6) DVT prophylaxis: Heparin Disposition: admit to tele Follow up: PCP Dr. Vizcaino upon discharge Admission and Anticipated Discharge Date Admission Date: December 14, 2019 Subjective Patient is sitting up in chair, in no acute distress. Denies any fevers, chills, chest pain, shortness of breath. He also denies abdominal pain, however continues to have loose stools. Review of Systems Review of Systems: All systems reviewed & are unremarkable except as noted in HPI & below Constitutional: no fever and no chills Respiratory: no cough and no dyspnea Cardiovascular: no chest pain and no palpitations Gastrointestinal: + diarrhea/loose stools; no abdominal pain, no nausea and no vomiting Physical Exam Physical Exam: Constitutional: WD/WN, morbidly obese male, sitting up in bed, in NAD Head: Normocephalic, Atraumatic Eyes: PERRL, EOMI, conjunctivae normal, anicteric sclerae ENMT: external ear and nose normal, oropharynx normal Neck: trachea midline, no thyromegaly normal visual inspection Respiratory: normal respiratory effort, lungs clear to auscultation, no wheeze, rales, rhonchi. Normal insp/exp effort, no accessory muscle use Cardiovascular: RRR, no murmur, no edema Vessels: no JVD or carotid bruit Chest: normal inspection of chest Abdomen: normal bowel sounds, soft, nontender Musculoskeletal: no cyanosis or clubbing, extremities motor strength 5/5, moves extremities spontaneously Skin: no rashes, warm and dry Neurologic: PERRL, EOMI, accommodation nl, no face palsy, no dysarthria CN's II-XI intact bilaterally and moves all extremities Psychiatric: A+Ox3, euthymic affect Results & Data ([facility]) Vital Signs (Past 12 Hours) Vital Signs Temp Pulse Pulse Resp BP Pulse Ox 12/16/19 07:00 36.5 C 65 20 129/72 98 12/16/19 03:20 36.5 C 65 20 123/72 97 12/16/19 00:57 70 12/15/19 22:49 37.3 C 68 20 135/71 96 Laboratory Results reviewed Medications Administered reviewed
[2019-12-16 08:34] LABS: Hematocrit (blood only) 34.5 % (42-52); Hemoglobin 11.6 g/dL (14.0-18.0); Mean Corpuscular Hemoglobin 29.3 pg (25-34); Mean Corpuscular Hgb Conc 33.6 g/dL (32-36); Mean Corpuscular Volume 87.1 fL (80-100); Mean Platelet Volume 9.1 fL (7.4-10.4); Platelet Count 224 K/uL (130-400); RDW Coefficient of Variation 14.1 % (11.5-14.5); RDW Standard Deviation 44.7 fL (36.4-46.3); Red Blood Count 3.96 M/uL (4.7-6.1); White Blood Count 6.69 K/uL (4.8-10.8)
[2019-12-16 08:52] LABS: BUN Creatinine Ratio 14.3 (10-20); Calcium 8.6 mg/dl (8.5-10.1); Creatinine Clr Calc Pharmacy 108.7 ml/min; Est GFR (African American) 66.7; Est GFR (Non-African American) 57.5; Magnesium 1.6 mg/dl (1.8-2.4); Phosphorus 2.5 mg/dl (2.5-4.9); Potassium 3.6 mmol/L (3.5-5.1)
[2019-12-16] MEDS ORDERED: MAGNESIUM SULFATE / D5W 1 GM/100 ML BAG IV ONE (09:43)
[2019-12-16] MEDS: DOXEPIN HCL 75 MG CAPSULE PO SCH (21:15)
[2019-12-16] MEDS: GABAPENTIN 100 MG CAP PO SCH (21:16)
[2019-12-17] MEDS: SODIUM CHLORIDE 0.9% 1000ML 1,000 ML IV SCH ×2 (01:45→08:17)
[2019-12-17] MEDS: HEPARIN SOD 5,000 UNIT/0.5 ML VIAL SQ SCH ×2 (06:00→14:52)
[2019-12-17 06:39] LABS: Hematocrit (blood only) 36.6 % (42-52); Hemoglobin 12.2 g/dL (14.0-18.0); Mean Corpuscular Hemoglobin 29.1 pg (25-34); Mean Corpuscular Hgb Conc 33.3 g/dL (32-36); Mean Corpuscular Volume 87.4 fL (80-100); Mean Platelet Volume 9.5 fL (7.4-10.4); Platelet Count 225 K/uL (130-400); RDW Coefficient of Variation 14.1 % (11.5-14.5); Red Blood Count 4.19 M/uL (4.7-6.1); White Blood Count 7.12 K/uL (4.8-10.8)
[2019-12-17 07:26] LABS: BUN Creatinine Ratio 9.5 (10-20); Calcium 8.4 mg/dl (8.5-10.1); Est GFR (African American) 75.9; Est GFR (Non-African American) 65.5; Magnesium 1.8 mg/dl (1.8-2.4); Phosphorus 2.9 mg/dl (2.5-4.9); Potassium 3.4 mmol/L (3.5-5.1)
[2019-12-17] MEDS: INSULIN ASPART 100 UNITS/ML 3 ML PEN SC SCH ×2 (08:08→12:32)
[2019-12-17] MEDS: carvediloL 25 MG TAB PO SCH (08:11)
[2019-12-17] MEDS: CITALOPRAM 40 MG TAB PO SCH (08:12)
[2019-12-17] MEDS: PANTOprazole 40 MG TAB PO SCH (08:13)
[2019-12-17] MEDS: INSULIN GLARGINE SOLOSTAR 100 UNITS/ML 3 ML PEN SC SCH (08:14)
[2019-12-17] MEDS ORDERED: POTASSIUM CHLORIDE 20 MEQ TABCR PO STA (11:10)
--- NOTE | 2019-12-17 15:25 | Discharge Summary ---
Date of Service December 17, 2019 Admission HPI Per Admitting Provider This is a 44-year-old male who has significant PMH of T2DM, HTN, LEIGH, DESTINY, migraine, obesity who presents to ED secondary to persistent nausea/vomiting/diarrhea x6 days. Symptoms started on Tuesday, approximately 6 days ago. He developed profuse, watery, yellow diarrhea with multiple episodes daily, 15-20. "My bowels only started times since last Tuesday." The diarrhea came first and then shortly after he developed nausea and emesis. He is unable to keep anything down orally. He cannot keep liquids down but states, "they come outt the bottom right away." Emesis contains undigested food. He denies any fevers but admits to chills after bowel movements. He does complain of epigastric and periumbilical abdominal pain prior to having a BM. Describes it as crampy and is relieved with having BM. He does not have any constant abdominal pain. He denies any lightheadedness, dizziness, chest pain, short breath, palpitations, cough, hemoptysis, hematemesis, melena, hematochezia. Overall appetite has been poor. He has switched to brat diet which has not significantly helped symptoms. Is also tried [id number] Kaopectate without relief. is at bedside. No known sick contacts. No recent antibiotic use, travel or camping. He was seen in ED by Dr. Rodrigues on 12/10. He had stool studies obtained which were negative for enteric pathogens as well as C. difficile. He did have leukocytosis at 19,000. Due to persistent symptoms and inability to eat or drink he opted to present to ED. He has been taking his medication as prescribed except this morning. These include metformin, Janumet, lisinopril, Aldactone and HCTZ. He does follow [facility] and underwent EGD 01/2019 with dilation. Placed on PPI. Has recently stopped that due to feeling like it produces increased bile smelling belching. There is concern for underlying gastroparesis. In ED patient remained hemodynamically stable and was afebrile. Lab abnormalities notable for leukocytosis 15.6 1K, neutrophilia and monocytosis, sodium 130, K4.2, BUN 54, creatinine 2.54, glucose 213, lipase 176. CT scan of abdomen pelvis was performed secondary to persistence of symptoms which is negative for acute abnormality. 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 Discharge Data Allergies Allergy/AdvReac Type Severity Reaction Status Date / Time doxazosin [From Cardura] Allergy Unknown Verified 12/14/19 13:03 empagliflozin Allergy Unknown Verified 12/14/19 13:03 [From Jardiance] Consultations 12/14/19 13:01 ED Decision to Admit Stat 12/14/19 13:54 Consult Gastroenterology Routine Ordered Studies 12/14/19 11:24 CT abd pelvis wo con Stat Discharge Plan Discharge Items Patient Disposition: Home - Self-Care Reason For Visit: N/V/D, SALINA, ACUTE DEHYDRATION Discharge Diagnosis: Gastroenteritis SALNIA (acute kidney injury) Diabetes mellitus type 2 (uncontrolled) Possible gastroparesis Activity: As commented below Non-emergency contact: Primary Care Provider and Paper Tube Grader Call non-emergency contact if: you have any medication questions and your symptoms worsen Follow-up/Referrals: Mikey Vizcaino MD [Primary Care Provider] - Diet: Carb Consistent or DM2 and Heart Healthy Add Attending Provider Instructions: Follow up with your primary care doctor in 1 week. Start taking lisinopril tomorrow but continue to hold spironolactone and HCTZ until you see your primary care doctor. Start taking pantoprazole. Start using insulin as you were instructed here during your hospital stay. Also continue taking your other diabetes medications (metformin and janumet). [employer] Computer Applications Engineer Provider Instructions: Per nurse educator: 1. A1c 9.7% 2019- add Basaglar 10 units AM daily. 2. Continue Metformin XR 1000mg AM and Janumet 50/1000mg AM. 3. Check blood sugar 2x/day- fasting and before dinner daily. 4. Will follow-up via telephone in 2-3 days. 5. A1c > 9%- olive brine tester notified to arrange post-discharge diabetes follow- up. PRESCRIPTIONS NEEDED: 1. Basaglar Kwikpen. 2. BD Roxy insulin pen needles 5/32 (4mm) x 32G. Pending Studies at Discharge: No Stand-Alone Forms: My Influx, Smoking Cessation Medications and DC Order Prescriptions: New pantoprazole 40 mg Tablet,Delayed Release (Dr/Ec) 40 mg PO QAM 30 Days Qty: 30 RF: 0 Continued ondansetron 4 mg tablet,disintegrating 4 mg PO Q8H PRN (Reason: Nausea And Vomiting) RF: 0 doxepin 75 mg capsule 75 mg PO HS RF: 0 gabapentin 100 mg Capsule 200 mg PO HS RF: 0 citalopram [Celexa] 40 mg Tablet 40 mg PO QAM RF: 0 amlodipine [Norvasc] 10 mg Tablet 10 mg PO HS RF: 0 simvastatin [Zocor] 20 mg Tablet 20 mg PO HS RF: 0 Janumet 50-1,000 mg Tablet 1 tab PO QAM RF: 0 carvedilol [Coreg] 25 mg tablet 1 tab PO BID RF: 0 metformin [Glucophage XR] 500 mg tablet extended release 24 hr 1,000 mg PO QAM RF: 0 Discontinued spironolactone [Aldactone] 25 mg Tablet 1.5 tab PO QAM RF: 0 hydrochlorothiazide 25 mg Tablet 25 mg PO QAM RF: 0 lisinopril [Zestril] 40 mg Tablet 40 mg PO QAM RF: 0 Discharge Orders: Discharge Order (Routine); Ordered 12/17/19 Ordered By: Billy Christopher/Other Patient Handouts: Hypoglycemia, Diabetes Healthy Meals, Diabetes Meal Planning Admission Data Admit Date/Time: 12/14/19 13:22 Attending Provider: Billy Estrella Admit Provider: Angelito Holcomb Primary Care Provider: Mikey Vizcaino Other Providers: Angelito Holcomb ; Hanna Win
== END 2019-12-17 16:15 | disposition home or self-care (01) | DRG 392 ==
LOC: ED 09:54 → 2W 13:22 → SUATTDRO 13:22 → 2W 13:38

== ENCOUNTER 2022-06-24 12:12 | Inpatient (IN) ==
--- NOTE | 2022-06-24 13:24 | XRay Report ---
XR chest 2V PA/lateral CLINICAL HISTORY: blood clot TECHNIQUE: 2 views of the chest were obtained. Comparison: Comparison is made to chest radiograph 11/26/2018 FINDINGS: Exam is limited by underpenetration. The cardiomediastinal silhouette is mildly enlarged, stable. The lungs are clear. No evidence of pleural effusion or pneumothorax. IMPRESSION: No acute chest disease. ACT 112: Negative or not required by law. Electronically signed by: Geo Monteiro M.D. 06/24/2022 1:23 PM
[2022-06-24 13:55] LABS: Basophils # (auto) 0.06 K/uL (0-0.2); Basophils % (auto) 0.4 %; Eosinophils # (auto) 0.33 K/uL (0-0.50); Eosinophils % (auto) 2.2 %; Hematocrit (blood only) 41.6 % (40.1-51.0); Hemoglobin 13.9 g/dl (14.0-18.0); Immature Granulocytes % (auto) 0.7 %; Lymphocytes # (auto) 2.23 K/uL (1.2-3.4); Lymphocytes % (auto) 14.7 %; Mean Corpuscular Hgb Conc 33.4 g/dL (32.0-36.0); Mean Corpuscular Volume 83.7 fL (80.0-100.0); Monocytes % (auto) 5.9 %; Neutrophils # (auto) 11.58 K/uL (1.4-6.5); Neutrophils % (auto) 76.1 %; Platelet Count 283 K/uL (130-400); RDW Coefficient of Variation 14.4 % (11.5-14.5); RDW Standard Deviation 43.1 fL (36.4-46.3); Red Blood Count 4.97 M/uL (4.63-6.08)
[2022-06-24 14:09] LABS: Partial Thromboplastin Time 27.3 Seconds (21.0-31.0); Prothrombin Time 10.7 Seconds (9.0-12.0)
[2022-06-24 14:21] LABS: Alanine Aminotransferase 20 U/L (7-52); Albumin Globulin Ratio 1.7 (0.9-2); Albumin Level 4.7 gm/dl (3.4-5.0); Alkaline Phosphatase 56 U/L (34-104); Anion Gap 10 (3-11); Aspartate Aminotransferase 25 U/L (13-39); BUN Creatinine Ratio 19.5 (10-20); Bilirubin,Total 0.7 mg/dl (0.2-1.0); Blood Urea Nitrogen 33 mg/dl (6-23); Calcium 10.2 mg/dl (8.5-10.1); Carbon Dioxide 28 mmol/L (21-32); Chloride 100 mmol/L (98-107); Est GFR (African American) 55.6 ml/min; Globulin 2.8 gm/dl (2.5-4.0); Glucose 165 mg/dl (70-99(Fasting)); Potassium 3.3 mmol/L (3.5-5.1); Sodium 138 mmol/L (136-145); Total Protein 7.5 gm/dl (6.0-8.3)
[2022-06-24] MEDS ORDERED: MoRPHine SULFATE 4 MG/ML 1 ML CARP\\VIAL IV STA (15:54)
[2022-06-24] MEDS ORDERED: ONDANSETRON INJ 2 MG/ML 2 ML VIAL IV STA (15:54)
[2022-06-24] MEDS ORDERED: SODIUM CHLORIDE 0.9% 1000ML 500 ML IV ONE (15:54)
--- NOTE | 2022-06-24 16:12 | Emergency Department Note ---
Impression & Plan Right leg weakness, Acute pain of right lower extremity ED Provider Note NAME: JOSSELIN HEART AGE: 47 SEX: M : 1975 ARRIVES VIA: Walk-In INFORMANT: Patient, ED PROVIDER(S): Chaim Wasserman DO CHIEF COMPLAINT: Leg pain HPI: The patient is a 47-year-old male who presented to the emergency department for an evaluation of leg pain. The patient states he has had weakness numbness and pain in his right lower extremity since Tuesday of this week. He states the pain is moderate to severe and worsens with any movement. He started noticing that he had very severe pain as well as numbness especially over the outside of the right leg. He called his family doctor and had an outpatient virtual visit. He had an ultrasound which was arterial ordered which was normal. He called back today because of worsening symptoms and was referred to the emergency department immediately for "further work-up". The patient denies having any injury. He denies having any back pain or abdominal pain. He has no chest pain. He denies having any difficulty breathing. He does not have a history of DVT. He does not take any blood thinners. He states has been compliant with his outpatient medications otherwise. ROS: See above HPI for pertinent positives & negatives. A total of 10 systems r eviewed and were otherwise negative. PAST MEDICAL HISTORY: See Below PAST SURGICAL HISTORY: See Below FAMILY HISTORY: See Below SOCIAL HISTORY: See Below HOME MEDICATIONS: See Below ALLERGIES: See Below VITALS: See Below PHYSICAL EXAMINATION: GENERAL: Patient is awake and alert. The patient is very anxious appearing. EYES: The conjunctivae are clear. The pupils are round and reactive. EARS, NOSE, MOUTH AND THROAT: The nose is without any evidence of any deformity. NECK: The neck is nontender and supple. RESPIRATORY: Normal respiratory effort is noted there is no evidence of wheezing rhonchi or rales CARDIOVASCULAR: Regular rate and rhythm noted there no murmurs rubs or gallops normal S1 normal S2. GASTROINTESTINAL: The abdomen is soft. Abdomen is nontender. BACK: No midline tenderness or or step-off noted range of motion in flexion extension as well as rotation no signs of muscle spasm noted MUSCULOSKELETAL/EXTREMITIES: There is no evidence of gross deformity full range of motion is noted in the hips and shoulders. SKIN: There is no obvious evidence of any rash. There are no petechiae, pallor or cyanosis noted. Pulses are symmetric in both feet. NEUROLOGIC: Patient is awake alert and oriented x3. The patient is unable to lift the right leg off the bed for greater than 5 seconds. He appears to have significant pain doing this but also states that the leg feels "too weak "to lift off the bed. MEDICAL DECISION MAKING: The patient is a 47-year-old male who presented to the emergency department for an evaluation of right lower extremity pain. The patient had a vascular arterial Doppler done prior to coming to the emergency department. This was ordered by his primary care physician. The patient was sent to the emergency department again because of worsening pain. The patient was treated with pain medication in the emergency department. I discussed the patient's laboratory and radiographic studies with him. On physical exam he appears to have difficulty moving the leg. Initially he felt this was secondary to pain but on my exam I feel the patient is having neurologic weakness. He has no back pain. I discussed the patient's laboratory and radiographic studies with the on-call [facility] hospitalist. They have agreed to evaluate the patient in the emergency department for further management and disposition. Triage Nursing notes reviewed. Prior medical records reviewed Vital Signs: reviewed and remarkable for no significant abnormalities Differential diagnosis: DVT, musculoskeletal, infection, joint effusion, trauma, lymphedema, idiopathic, CHF, as well as other pathologies. ER treatment provided: See below Diagnostics interpreted by me: ECG: EKG was obtained in the emergency department. My interpretation is normal sinus rhythm at 64 bpm. There is no ectopy. Nonspecific ST segment abn ormalities were noted in the inferior leads. This was compared to a tracing from the 2018. No changes were noted. Cardiac Monitoring: An order was placed for continuous cardiac monitoring. The monitor shows a rate of 76 bpm with sinus rhythm. Laboratory studies: As stated above and show below. Imaging studies: See below Consultation(s): I discussed this case with Dr. Peña Past Med/Surg History Medical History (Updated 06/24/22 @ 22:33 by Chaim Wasserman DO) Anxiety DM type 2 (diabetes mellitus, type 2) Heartburn current issues - Also describes feeling that pill is stuck and has lump in throat HTN (hypertension) Morbid obesity LEIGH on CPAP Surgical History History of appendectomy Family History Father COPD (chronic obstructive pulmonary disease) Heart disease Diabetes Mother Heart disease CABG Social History Smoking Status: Never smoker Hx Alcohol Use: Yes Alcohol type: beer Hx Substance Use: No Preferred Language: Uzbek Communication Ability: Effective Audit Specialist Required: No Beliefs That Will Affect Care: None Current Living Situation: Spouse Feels Safe at Home: Yes Assistive Devices: CPAP Allergies Allergies Allergy/AdvReac Type Severity Reaction Status Date / Time doxazosin [From [facility]] Allergy Unknown Unknown Verified 06/24/22 19:35 empagliflozin Allergy Unknown Unknown Verified 06/24/22 19:35 [From [employer]] Home Meds Home Medications Medication Instructions Recorded Confirmed amlodipine 10 mg tablet (Norvasc) 10 mg PO HS 11/26/18 06/24/22 carvedilol 25 mg tablet (Coreg) 25 mg PO BIDM 11/26/18 06/24/22 citalopram 40 mg tablet (Celexa) 40 mg PO QAM 11/26/18 06/24/22 simvastatin 20 mg tablet (Zocor) 20 mg PO HS 11/26/18 06/24/22 chlorthalidone 25 mg tablet 25 mg PO QAM 06/24/22 06/24/22 doxepin 50 mg capsule 50 mg PO HS 06/24/22 06/24/22 furosemide 40 mg tablet 40 mg PO QAM 06/24/22 06/24/22 gabapentin 300 mg capsule 600 mg PO HS 06/24/22 06/24/22 lisinopril 40 mg tablet 40 mg PO QAM 06/24/22 06/24/22 metformin 500 mg tablet,extended 500 mg PO QPM 06/24/22 06/24/22 release 24 hr metoclopramide HCl 5 mg tablet 5 mg PO BIDM 06/24/22 06/24/22 omeprazole 40 mg capsule,delayed 40 mg PO QAM 06/24/22 06/24/22 release terazosin 1 mg capsule 1 mg PO HS 06/24/22 06/24/22 tramadol 50 mg tablet 50 mg PO BID PRN Pain 06/24/22 06/24/22 Results & Data (ED) Vital Signs Vital Signs - 24 hr 06/24/22 12:23 06/24/22 18:48 06/24/22 20:00 Temperature 37.0 C Temperature Source Temporal Artery Scan Pulse Rate 73 Pulse Rate [Apical] 75 72 Pulse Rhythm [Apical] Regular Regular Pulse Strength [Apical] Normal Normal Respiratory Rate 19 18 18 Respiratory Effort / Characteristics Non-Labored Non-Labored Non-Labored Respiratory Depth Normal Normal Respiratory Pattern Regular Blood Pressure 94/60 L Blood Pressure [Right Arm] 130/59 L 130/49 L Blood Pressure Mean 71 Blood Pressure Mean [Right Arm] 82 76 Blood Pressure Position [Right Arm] Lying Pulse Oximetry 95 98 97 Oxygen Delivery Method Room Air Room Air Room Air Sepsis Recent Fever Within 48 Hours No Sepsis New/Unexplained Change in Mental Status N/A Sepsis Action Taken by Nursing No Action Required Home Medications Current Medication List: was personally reviewed by me Laboratory Data Attestation: I reviewed the patient's lab results. Result diagrams: 06/25/22 07:37 06/25/22 07:37 Lab Results 06/24/22 06/24/22 06/24/22 Range/Units 13:43 13:43 13:43 WBC 15.20 H (4.8-10.8) K/ul RBC 4.97 (4.63-6.08) M/uL Hgb 13.9 L (14.0-18.0) g/dl Hct 41.6 (40.1-51.0) % MCV 83.7 (80.0-100.0) fL MCH 28.0 (25.0-34.0) pg MCHC 33.4 (32.0-36.0) g/dL RDW Std Deviation 43.1 (36.4-46.3) fL RDW Coeff of Sarah 14.4 (11.5-14.5) % Plt Count 283 (130-400) K/uL MPV 9.0 L (9.4-12.4) fL Immature Gran % (Auto) 0.7 % Neut % (Auto) 76.1 % Lymph % (Auto) 14.7 % [place] % (Auto) 5.9 % Eos % (Auto) 2.2 % Baso % (Auto) 0.4 % Neut # (Auto) 11.58 H (1.4-6.5) K/uL Lymph # (Auto) 2.23 (1.2-3.4) K/uL [place] # (Auto) 0.90 H (0.24-0.82) K/uL Eos # (Auto) 0.33 (0-0.50) K/uL Baso # (Auto) 0.06 (0-0.2) K/uL Immature Gran # (Auto) 0.10 H (0.00-0.02) K/uL PT 10.7 (9.0-12.0) Seconds INR 1.0 (0.9-1.1) APTT 27.3 (21.0-31.0) Seconds PTT Ratio 1.0 Sodium 138 (136-145) mmol/L Potassium 3.3 L (3.5-5.1) mmol/L Chloride 100 (98-107) mmol/L Carbon Dioxide 28 (21-32) mmol/L Anion Gap 10 (3-11) BUN 33 H (6-23) mg/dl Creatinine 1.69 H (0.6-1.4) mg/dl Est Cr Clr Drug Dosing Not Reportable Est GFR ( Amer) 55.6 ml/min Est GFR (Non-Af Amer) 48.0 ml/min BUN/Creatinine Ratio 19.5 (10-20) Glucose 165 H (70-99(Fasting)) mg/dl Calcium 10.2 H (8.5-10.1) mg/dl Magnesium (1.7-2.4) mg/dl Total Bilirubin 0.7 (0.2-1.0) mg/dl AST 25 (13-39) U/L ALT 20 (7-52) U/L Alkaline Phosphatase 56 (34-104) U/L Total Creatine Kinase (30-223) U/L Troponin I High Sens (0-20) pg/ml Total Protein 7.5 (6.0-8.3) gm/dl Albumin 4.7 (3.4-5.0) gm/dl Globulin 2.8 (2.5-4.0) gm/dl Albumin/Globulin Ratio 1.7 (0.9-2) TSH (0.300-4.500) uIu/ml Lyme Disease IgG Ab (Negative) Lyme Disease IgM Ab (Negative) SARS-CoV-2, RNA, NAAT (NEGATIVE) 06/24/22 06/24/22 06/24/22 Range/Units 13:43 13:43 13:43 WBC (4.8-10.8) K/ul RBC (4.63-6.08) M/uL Hgb (14.0-18.0) g/dl Hct (40.1-51.0) % MCV (80.0-100.0) fL MCH (25.0-34.0) pg MCHC (32.0-36.0) g/dL RDW Std Deviation (36.4-46.3) fL RDW Coeff of Sarah (11.5-14.5) % Plt Count (130-400) K/uL MPV (9.4-12.4) fL Immature Gran % (Auto) % Neut % (Auto) % Lymph % (Auto) % [place] % (Auto) % Eos % (Auto) % Baso % (Auto) % Neut # (Auto) (1.4-6.5) K/uL Lymph # (Auto) (1.2-3.4) K/uL [place] # (Auto) (0.24-0.82) K/uL Eos # (Auto) (0-0.50) K/uL Baso # (Auto) (0-0.2) K/uL Immature Gran # (Auto) (0.00-0.02) K/uL PT (9.0-12.0) Seconds INR (0.9-1.1) APTT (21.0-31.0) Seconds PTT Ratio Sodium (136-145) mmol/L Potassium (3.5-5.1) mmol/L Chloride (98-107) mmol/L Carbon Dioxide (21-32) mmol/L Anion Gap (3-11) BUN (6-23) mg/dl Creatinine (0.6-1.4) mg/dl Est Cr Clr Drug Dosing Est GFR ( Amer) ml/min Est GFR (Non-Af Amer) ml/min BUN/Creatinine Ratio (10-20) Glucose (70-99(Fasting)) mg/dl Calcium (8.5-10.1) mg/dl Magnesium 1.8 (1.7-2.4) mg/dl Total Bilirubin (0.2-1.0) mg/dl AST (13-39) U/L ALT (7-52) U/L Alkaline Phosphatase (34-104) U/L Total Creatine Kinase 415 H (30-223) U/L Troponin I High Sens 8.8 (0-20) pg/ml Total Protein (6.0-8.3) gm/dl Albumin (3.4-5.0) gm/dl Globulin (2.5-4.0) gm/dl Albumin/Globulin Ratio (0.9-2) TSH (0.300-4.500) uIu/ml Lyme Disease IgG Ab Negative (Negative) Lyme Disease IgM Ab Negative (Negative) SARS-CoV-2, RNA, NAAT (NEGATIVE) 06/24/22 06/24/22 Range/Units 13:43 16:20 WBC (4.8-10.8) K/ul RBC (4.63-6.08) M/uL Hgb (14.0-18.0) g/dl Hct (40.1-51.0) % MCV (80.0-100.0) fL MCH (25.0-34.0) pg MCHC (32.0-36.0) g/dL RDW Std Deviation (36.4-46.3) fL RDW Coeff of Sarah (11.5-14.5) % Plt Count (130-400) K/uL MPV (9.4-12.4) fL Immature Gran % (Auto) % Neut % (Auto) % Lymph % (Auto) % [place] % (Auto) % Eos % (Auto) % Baso % (Auto) % Neut # (Auto) (1.4-6.5) K/uL Lymph # (Auto) (1.2-3.4) K/uL [place] # (Auto) (0.24-0.82) K/uL Eos # (Auto) (0-0.50) K/uL Baso # (Auto) (0-0.2) K/uL Immature Gran # (Auto) (0.00-0.02) K/uL PT (9.0-12.0) Seconds INR (0.9-1.1) APTT (21.0-31.0) Seconds PTT Ratio Sodium (136-145) mmol/L Potassium (3.5-5.1) mmol/L Chloride (98-107) mmol/L Carbon Dioxide (21-32) mmol/L Anion Gap (3-11) BUN (6-23) mg/dl Creatinine (0.6-1.4) mg/dl Est Cr Clr Drug Dosing Est GFR ( Amer) ml/min Est GFR (Non-Af Amer) ml/min BUN/Creatinine Ratio (10-20) Glucose (70-99(Fasting)) mg/dl Calcium (8.5-10.1) mg/dl Magnesium (1.7-2.4) mg/dl Total Bilirubin (0.2-1.0) mg/dl AST (13-39) U/L ALT (7-52) U/L Alkaline Phosphatase (34-104) U/L Total Creatine Kinase (30-223) U/L Troponin I High Sens (0-20) pg/ml Total Protein (6.0-8.3) gm/dl Albumin (3.4-5.0) gm/dl Globulin (2.5-4.0) gm/dl Albumin/Globulin Ratio (0.9-2) TSH 1.814 (0.300-4.500) uIu/ml Lyme Disease IgG Ab (Negative) Lyme Disease IgM Ab (Negative) SARS-CoV-2, RNA, NAAT NEGATIVE (NEGATIVE) Administered Medications Gabapentin (Gabapentin 300 Mg Cap) 600 mg PO HS CONNOR Stop: 07/24/22 23:30 Last Admin: 06/25/22 00:25 Dose: 600 mg Documented By: CINDA Heparin Sodium (Porcine) (Heparin Sod 5,000 Unit/0.5 Ml Vial) 5,000 units SQ Q8 CONNOR Stop: 07/24/22 23:30 Last Admin: 06/25/22 04:38 Dose: 5,000 units Documented By: Admin: 06/25/22 00:28 Dose: 5,000 units Documented By: CINDA Hydromorphone HCl (Hydromorphone Inj 1 Mg/Ml Syringe) 1 mg IV Q6H PRN PRN Reason: Pain Stop: 07/08/22 20:44 Last Admin: 06/25/22 01:51 Dose: 1 mg Documented By: CINDA Lactated Ringer's (Lr) 1,000 mls @ 100 mls/hr IV .Q10H CONNOR Stop: 06/26/22 03:29 Last Admin: 06/25/22 04:38 Dose: 100 mls/hr Documented By: CINDA Insulin Aspart (Insulin Aspart Per Unit) 0 units SC ACHS CONNOR Stop: 07/24/22 23:30 Last Admin: 06/25/22 00:31 Dose: Not Given Documented By: CP Discontinued Medications Aspirin (Aspirin 81 Mg Chew) 324 mg PO NOW STA Stop: 06/24/22 20:37 Last Admin: 06/24/22 21:19 Dose: 324 mg Documented By: RSL Hydromorphone HCl (Hydromorphone Inj 1 Mg/Ml Syringe) 1 mg IV NOW STA Stop: 06/24/22 20:37 Last Admin: 06/24/22 21:19 Dose: 1 mg Documented By: RSEdna Sodium Chloride (Nss 1000ml) 500 mls @ 999 mls/hr IV .Q31M ONE Stop: 06/24/22 16:24 Last Infusion: 06/24/22 18:12 Dose: 0 mls/hr Documented By: RSEdna Admin: 06/24/22 16:30 Dose: 999 mls/hr Documented By: RSEdna Lactated Ringer's (Lr) 1,000 mls @ 100 mls/hr IV .Q10H ONE Stop: 06/25/22 06:36 Last Infusion: 06/25/22 04:39 Dose: 0 mls/hr Documented By: Admin: 06/24/22 21:29 Dose: 100 mls/hr Documented By: RSEdna Magnesium Sulfate/Dextrose (Magnesium Sulfate / D5w) 1 gm in 100 mls @ 50 mls/hr IV ONE ONE Stop: 06/25/22 03:44 Last Infusion: 06/25/22 04:38 Dose: 0 mls/hr Documented By: Admin: 06/25/22 02:16 Dose: 50 mls/hr Documented By: CINDA Morphine Sulfate (Morphine Sulfate 4 Mg/Ml 1 Ml Carp\\Vial) 4 mg IV NOW STA Stop: 06/24/22 15:55 Last Admin: 06/24/22 16:30 Dose: 4 mg Documented By: RSEdna Ondansetron HCl (Ondansetron Inj 2 Mg/Ml 2 Ml Vial) 4 mg IV NOW STA Stop: 06/24/22 15:55 Last Admin: 06/24/22 16:30 Dose: 4 mg Documented By: RSEdna Potassium Chloride (Potassium Chloride Crtab 20 Meq Tabcr) 40 meq PO NOW STA Stop: 06/24/22 19:46 Last Admin: 06/24/22 21:18 Dose: 40 meq Documented By: RSEdna Imaging Data Radiologist's Impression: Chest X-Ray 06/24/22 12:26 XR chest 2V PA/lateral CLINICAL HISTORY: blood clot TECHNIQUE: 2 views of the chest were obtained. Comparison: Comparison is made to chest radiograph 11/26/2018 FINDINGS: Exam is limited by underpenetration. The cardiomediastinal silhouette is mildly enlarged, stable. The lungs are clear. No evidence of pleural effusion or pneumothorax. IMPRESSION: No acute chest disease. ACT 112: Negative or not required by law. Electronically signed by: Geo Monteiro M.D. 06/24/2022 1:23 PM Venous Doppler Study 06/24/22 15:51 US venous doppler LE RT CLINICAL HISTORY: sent by PCP, pain TECHNIQUE: Right lower extremity real-time compression venous ultrasound with Color Doppler imaging. Utilizing real-time ultrasonic imaging multiple real time high-resolution ultrasonic images with compression and noncompression maneuvers of the deep venous system in addition to color doppler imaging were performed from the common femoral vein through the proximal calf veins. COMPARISON: None available at the time of this dictation. FINDINGS: Currently there is normal compressibility of the deep venous system from the common femoral vein through the proximal calf veins. No superficial venous th rombosis is identified. Impression: No evidence of deep venous thrombus. ACT 112: Negative or not required by law. Electronically signed by: Geo Monteiro M.D. 06/24/2022 6:[address] 06/24/22 15:53 CT SCAN OF THE BRAIN WITHOUT IV CONTRAST CLINICAL HISTORY: Right lower extremity weakness. COMPARISON STUDY: CT of the brain dated 11/26/2018. TECHNIQUE: Unenhanced axial CT scan of the brain is performed from the vertex to the skull base. A dose lowering technique was utilized adhering to the principles of ALARA. CT DOSE: 691.05 mGy.cm FINDINGS: Brain parenchyma: The brain parenchyma is normal in appearance. There is no hemorrhage, mass effect, or evidence of acute territorial ischemia by CT criteria. Lei-white matter differentiation is preserved. No extra-axial fluid collection is seen. Ventricles, sulci, cisterns: Normal in configuration. Intracranial vasculature: The visualized intracranial vasculature at the skull base is normal in appearance. Calvarium: Unremarkable. Sinuses and mastoids: The paranasal sinuses are clear. The mastoid air cells are well pneumatized. Orbits: The bony orbits are grossly intact. IMPRESSION: There is no hemorrhage, mass effect, or evidence of acute territorial ischemia by CT criteria. ACT 112: Negative or not required by law. Electronically signed by: Kevin Kessler M.D. 06/24/2022 4:24 PM Discharge Plan Visit Data Chief Complaint: Referred by Doctor Stated Complaint: DR CALLED - BLOOD CLOT ED Provider: Chaim Wasserman Discharge Problem: Right leg weakness, Acute pain of right lower extremity Patient Disposition: Admitted As Inpatient Discharge Instructions Interventions: ED Discharge Assessment Last Done: 06/25/22 00:16
--- NOTE | 2022-06-24 16:26 | CT Scan Report ---
CT SCAN OF THE BRAIN WITHOUT IV CONTRAST CLINICAL HISTORY: Right lower extremity weakness. COMPARISON STUDY: CT of the brain dated 11/26/2018. TECHNIQUE: Unenhanced axial CT scan of the brain is performed from the vertex to the skull base. A d ose lowering technique was utilized adhering to the principles of ALARA. CT DOSE: 691.05 mGy.cm FINDINGS: Brain parenchyma: The brain parenchyma is normal in appearance. There is no hemorrhage, mass effect, or evidence of acute territorial ischemia by CT criteria. Lei-white matter differentiation is preser ed. No extra-axial fluid collection is seen. Ventricles, sulci, cisterns: Normal in configuration. Intracranial vasculature: The visualized intracranial vasculature at the skull base is normal in appe arance. Calvarium: Unremarkable. Sinuses and mastoids: The paranasal sinuses are clear. The mastoid air cells are well pneumatized. Orbits: The bony orbits are grossly intact. IMPRESSION: There is no hemorrhage, mass effect, or evidence of acute territorial ischemia by CT sarthak garvin. ACT 112: Negative or not required by law. Electronically signed by: Kevin Kessler M.D. 06/24/2022 4:24 PM
[2022-06-24 16:46] LABS: Troponin I High Sensitivity 8.8 pg/ml (0-20)
--- NOTE | 2022-06-24 16:48 | Electrocardiogram Report ---
Test Reason : Blood Pressure : / mmHG Vent. Rate : 064 BPM Atrial Rate : 064 BPM P-R Int : 202 ms QRS Dur : 098 ms QT Int : 416 ms P-R-T Axes : 029 025 046 degrees QTc Int : 429 ms Normal sinus rhythm When compared with ECG of 27-NOV-2018 06:28, No significant change was found Confirmed by Eric Sorenson ([id number]) on 06/24/2022 4:48:21 PM Referred By: Confirmed By:Charli Sorenson
--- NOTE | 2022-06-24 18:49 | Ultrasound Report ---
US venous doppler LE RT CLINICAL HISTORY: sent by PCP, pain TECHNIQUE: Right lower extremity real-time compression venous ultrasound with Color Doppler imaging. Utilizing real-time ultrasonic imaging multiple real time high-resolution ultrasonic images with comp ression and noncompression maneuvers of the deep venous system in addition to color doppler imaging w ere performed from the common femoral vein through the proximal calf veins. COMPARISON: None available at the time of this dictation. FINDINGS: Currently there is normal compressibility of the deep venous system from the common femoral vein thro ugh the proximal calf veins. No superficial venous thrombosis is identified. Impression: No evidence of deep venous thrombus. ACT 112: Negative or not required by law. Electronically signed by: Geo Monteiro M.D. 06/24/2022 6:48 PM
[2022-06-24] MEDS ORDERED: POTASSIUM CHLORIDE CRTAB 20 MEQ TABCR PO STA (19:45)
[2022-06-24] MEDS ORDERED: ASPIRIN 81 MG CHEW PO STA (20:36)
[2022-06-24] MEDS ORDERED: HYDROmorphone INJ 1 MG/ML SYRINGE IV STA (20:36)
[2022-06-24] MEDS ORDERED: LACTATED RINGER'S 1,000 ML IV ONE (20:37)
--- NOTE | 2022-06-24 20:37 | History & Physical Report ---
Date of Service June 24, 2022 Assessment & Plan (1) Right leg weakness: Plan: Associated with numbness and pain. ? Mild rhabdomyolysis given CPK elevation Rule out traumatic bony injury Rule out CVA inpatient risk factors hypertension, BP on the lower side hyperlipidemia on statin Rx DM2 diet-controlled, well-controlled as of outpatient hemoglobin A1c of 6.4 last June 2021 LEIGH on CPAP CRI, creatinine at baseline chronic anemia, hemoglobin at baseline Hypokalemia secondary to diuretic Rx OBS Medical telemetry Plain x-rays of the right lower extremity Neurochecks until CVA ruled out Aspirin for stroke prevention until CVA ruled out Appropriate to hold multiple home BP meds for now given borderline BP to allow for adequate cerebral perfusion until CVA ruled out MRI brain Monitor CPK response to IVF, hold statin until CPK within normal limits Further management pending work-up results Replace potassium, hold home diuretic while patient getting IV hydration Basal bolus insulin, ISS BG goal 1 10-1 40, carb count coverage, update hemoglobin A1c DVT prophylaxis. Heparin subcu Full code Text document was generated using [employer] voice recognition software. It may contain grammatical or spelling errors. Kindly contact undersigned for clarification of any documentation item in question. History of Present Illness Chief Complaint: Right leg weakness/pain Primary Care Provider: Ronda Plaza PA-C History obtained from patient, family, and records. Medical history significant for hypertension, hyperlipidemia, DM2 diet- controlled, LEIGH on CPAP, migraine/trigeminal neuralgia as per records, CRI (baseline creatinine 1.7), chronic anemia (baseline hemoglobin 12), anxiety d isorder. Last confinement December 2019 for ARF secondary to gastroenteritis. 5 days ago, patient woke up with right lower leg numbness associated pain or weakness. No fever, no chills, no headache, no chest pain, no SOB. No prior episodes. No unusual back pain. No recollection of recent trauma. Patient seen at PCPs office 2 days ago. Outpatient D-dimer and arterial Dopplers requested for leg numbness. D-dimer noted to be abnormal. Normal RLE arterial Dopplers. Patient consulted ER for further evaluation. 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 Allergies Allergy/AdvReac Type Severity Reaction Status Date / Time doxazosin [From Cardura] Allergy Unknown Unknown Verified 06/24/22 19:35 empagliflozin Allergy Unknown Unknown Verified 06/24/22 19:35 [From Jardiance] Home Medications Medication Instructions Recorded Confirmed Type amlodipine 10 mg tablet (Norvasc) 10 mg PO HS 11/26/18 06/24/22 History carvedilol 25 mg tablet (Coreg) 25 mg PO BIDM 11/26/18 06/24/22 History citalopram 40 mg tablet (Celexa) 40 mg PO QAM 11/26/18 06/24/22 History simvastatin 20 mg tablet (Zocor) 20 mg PO HS 11/26/18 06/24/22 History chlorthalidone 25 mg tablet 25 mg PO QAM 06/24/22 06/24/22 History doxepin 50 mg capsule 50 mg PO HS 06/24/22 06/24/22 History furosemide 40 mg tablet 40 mg PO QAM 06/24/22 06/24/22 History gabapentin 300 mg capsule 600 mg PO HS 06/24/22 06/24/22 History lisinopril 40 mg tablet 40 mg PO QAM 06/24/22 06/24/22 History metformin 500 mg tablet,extended 500 mg PO QPM 06/24/22 06/24/22 History release 24 hr metoclopramide HCl 5 mg tablet 5 mg PO BIDM 06/24/22 06/24/22 History omeprazole 40 mg capsule,delayed 40 mg PO QAM 06/24/22 06/24/22 History release terazosin 1 mg capsule 1 mg PO HS 06/24/22 06/24/22 History tramadol 50 mg tablet 50 mg PO BID PRN Pain 06/24/22 06/24/22 History Past Med/Surg History Medical History (Updated 06/24/22 @ 22:33 by Chaim Wasserman DO) Anxiety DM type 2 (diabetes mellitus, type 2) Heartburn current issues - Also describes feeling that pill is stuck and has lump in throat HTN (hypertension) Morbid obesity LEIGH on CPAP Surgical History History of appendectomy Family History Father COPD (chronic obstructive pulmonary disease) Heart disease Diabetes Mother Heart disease CABG Social History Smoking Status: Never smoker Hx Alcohol Use: Yes Alcohol type: beer Hx Substance Use: No Preferred Language: Maltese Communication Ability: Effective Unit Secretary Required: No Beliefs That Will Affect Care: None Current Living Situation: Spouse Feels Safe at Home: Yes Assistive Devices: CPAP Review of Systems Review of Systems: As per HPI, all other systems reviewed and negative Physical Exam Physical Exam: GENERAL: Slightly uncomfortable, morbidly obese, no respiratory distress SKIN: Normal color, warm HEENT: [place] palpebral conjunctivae, no ptosis, moist buccal mucosa NECK : Supple, short neck, no tenderness CHEST : CTA, no tenderness HEART : RRR, no obvious murmurs ABDOMEN: distention, nontender EXTREMITIES : Bilateral LE swelling, minimal LLE tenderness, no other conspicuous deformities noted NEUROLOGIC : Coherent, no facial asymmetry, MMTS BUE 5/5, RLE 4/5, LLE 5/5, gait and stance not assessed Results & Data Results & Data ([facility]) Vital Signs (Past 12 Hours) Vital Signs Temp Pulse Pulse Resp BP BP Pulse Ox 06/24/22 18:48 75 18 130/59 L 98 06/24/22 12:23 37.0 C 73 19 94/60 L 95 O2 Del Method 06/24/22 18:48 Room Air 06/24/22 12:23 Room Air Laboratory Results Laboratory Results WBC 15.20 K/ul (4.8-10.8) H 06/24/22 13:43 RBC 4.97 M/uL (4.63-6.08) 06/24/22 13:43 Hgb 13.9 g/dl (14.0-18.0) L 06/24/22 13:43 Hct 41.6 % (40.1-51.0) 06/24/22 13:43 MCV 83.7 fL (80.0-100.0) 06/24/22 13:43 MCH 28.0 pg (25.0-34.0) 06/24/22 13:43 MCHC 33.4 g/dL (32.0-36.0) 06/24/22 13:43 RDW Std Deviation 43.1 fL (36.4-46.3) 06/24/22 13:43 RDW Coeff of Sarah 14.4 % (11.5-14.5) 06/24/22 13:43 Plt Count 283 K/uL (130-400) 06/24/22 13:43 MPV 9.0 fL (9.4-12.4) L 06/24/22 13:43 Immature Gran % (Auto) 0.7 % 06/24/22 13:43 Neut % (Auto) 76.1 % 06/24/22 13:43 Lymph % (Auto) 14.7 % 06/24/22 13:43 [place] % (Auto) 5.9 % 06/24/22 13:43 Eos % (Auto) 2.2 % 06/24/22 13:43 Baso % (Auto) 0.4 % 06/24/22 13:43 Neut # (Auto) 11.58 K/uL (1.4-6.5) H 06/24/22 13:43 Lymph # (Auto) 2.23 K/uL (1.2-3.4) 06/24/22 13:43 Fountain # (Auto) 0.90 K/uL (0.24-0.82) H 06/24/22 13:43 Eos # (Auto) 0.33 K/uL (0-0.50) 06/24/22 13:43 Baso # (Auto) 0.06 K/uL (0-0.2) 06/24/22 13:43 Immature Gran # (Auto) 0.10 K/uL (0.00-0.02) H 06/24/22 13:43 PT 10.7 Seconds (9.0-12.0) 06/24/22 13:43 INR 1.0 (0.9-1.1) 06/24/22 13:43 APTT 27.3 Seconds (21.0-31.0) 06/24/22 13:43 PTT Ratio 1.0 06/24/22 13:43 Sodium 138 mmol/L (136-145) 06/24/22 13:43 Potassium 3.3 mmol/L (3.5-5.1) L 06/24/22 13:43 Chloride 100 mmol/L (98-107) 06/24/22 13:43 Carbon Dioxide 28 mmol/L (21-32) 06/24/22 13:43 Anion Gap 10 (3-11) 06/24/22 13:43 BUN 33 mg/dl (6-23) H 06/24/22 13:43 Creatinine 1.69 mg/dl (0.6-1.4) H 06/24/22 13:43 Est Cr Clr Drug Dosing Not Reportable 06/24/22 13:43 Est GFR ( Amer) 55.6 ml/min 06/24/22 13:43 Est GFR (Non-Af Amer) 48.0 ml/min 06/24/22 13:43 BUN/Creatinine Ratio 19.5 (10-20) 06/24/22 13:43 Glucose 165 mg/dl (70-99(Fasting)) H 06/24/22 13:43 Calcium 10.2 mg/dl (8.5-10.1) H 06/24/22 13:43 Magnesium 1.8 mg/dl (1.7-2.4) 06/24/22 13:43 Total Bilirubin 0.7 mg/dl (0.2-1.0) 06/24/22 13:43 AST 25 U/L (13-39) 06/24/22 13:43 ALT 20 U/L (7-52) 06/24/22 13:43 Alkaline Phosphatase 56 U/L (34-104) 06/24/22 13:43 Total Creatine Kinase 415 U/L (30-223) H 06/24/22 13:43 Troponin I High Sens 8.8 pg/ml (0-20) 06/24/22 13:43 Total Protein 7.5 gm/dl (6.0-8.3) 06/24/22 13:43 Albumin 4.7 gm/dl (3.4-5.0) 06/24/22 13:43 Globulin 2.8 gm/dl (2.5-4.0) 06/24/22 13:43 Albumin/Globulin Ratio 1.7 (0.9-2) 06/24/22 13:43 SARS-CoV-2, RNA, NAAT NEGATIVE (NEGATIVE) 06/24/22 16:20 Impressions Chest X-Ray 06/24/22 12:26 XR chest 2V PA/lateral CLINICAL HISTORY: blood clot TECHNIQUE: 2 views of the chest were obtained. Comparison: Comparison is made to chest radiograph 11/26/2018 FINDINGS: Exam is limited by underpenetration. The cardiomediastinal silhouette is mildly enlarged, stable. The lungs are clear. No evidence of pleural effusion or pneumothorax. IMPRESSION: No acute chest disease. ACT 112: Negative or not required by law. Electronically signed by: Geo Monteiro M.D. 06/24/2022 1:23 PM Venous Doppler Study 06/24/22 15:51 US venous doppler LE RT CLINICAL HISTORY: sent by PCP, pain TECHNIQUE: Right lower extremity real-time compression venous ultrasound with Color Doppler imaging. Utilizing real-time ultrasonic imaging multiple real time high-resolution ultrasonic images with compression and noncompression maneuvers of the deep venous system in addition to color doppler imaging were performed from the common femoral vein through the proximal calf veins. COMPARISON: None available at the time of this dictation. FINDINGS: Currently there is normal compressibility of the deep venous system from the common femoral vein through the proximal calf veins. No superficial venous thrombosis is identified. Impression: No evidence of deep venous thrombus. ACT 112: Negative or not required by law. Electronically signed by: Geo Monteiro M.D. 06/24/2022 6:[address] 06/24/22 15:53 CT SCAN OF THE BRAIN WITHOUT IV CONTRAST CLINICAL HISTORY: Right lower extremity weakness. COMPARISON STUDY: CT of the brain dated 11/26/2018. TECHNIQUE: Unenhanced axial CT scan of the brain is performed from the vertex to the skull base. A dose lowering technique was utilized adhering to the principles of ALARA. CT DOSE: 691.05 mGy.cm FINDINGS: Brain parenchyma: The brain parenchyma is normal in appearance. There is no hemorrhage, mass effect, or evidence of acute territorial ischemia by CT criteria. Lei-white matter differentiation is preserved. No extra-axial fluid collection is seen. Ventricles, sulci, cisterns: Normal in configuration. Intracranial vasculature: The visualized intracranial vasculature at the skull base is normal in appearance. Calvarium: Unremarkable. Sinuses and mastoids: The paranasal sinuses are clear. The mastoid air cells are well pneumatized. Orbits: The bony orbits are grossly intact. IMPRESSION: There is no hemorrhage, mass effect, or evidence of acute territorial ischemia by CT criteria. ACT 112: Negative or not required by law. Electronically signed by: Kevin Kessler M.D. 06/24/2022 4:24 PM Diagnostic Findings EKG as per my interpretation : Rate 65, NSR, normal axis, ischemia
[2022-06-24] MEDS ORDERED: oxyCODONE HCL IR 5 MG TAB (IMMEDIATE RELEASE) PO PRN (20:45)
[2022-06-24] MEDS ORDERED: PROMETHAZINE HCL 12.5 MG in SODIUM CHLORIDE 0.9% 50 ML IV PRN (20:45)
[2022-06-24 21:48] LABS: Lyme Ab IgG w/WB Rflx Negative (Negative); Lyme Ab IgM w/WB Rflx Negative (Negative)
[2022-06-24] MEDS ORDERED: GLUCOSE 10 TAB/TUBE PO PRN (23:31)
[2022-06-24] MEDS ORDERED: GLUCAGON FOR INJ 1 MG VIAL SQ PRN (23:31)
[2022-06-24] MEDS ORDERED: GLUCOSE 40% GEL 15 GM TUBE PO PRN (23:31)
[2022-06-24] MEDS ORDERED: CARBOHYDRATES FOR HYPOGLYCEMIA PO PRN (23:31)
[2022-06-24] MEDS ORDERED: ACETAMINOPHEN 325 MG TAB PO PRN (23:31)
[2022-06-24] MEDS ORDERED: DEXTROSE 50% 50 ML SYRINGE IV PRN (23:31)
[2022-06-25] MEDS: GABAPENTIN 300 MG CAP PO SCH ×2 (00:25→21:06)
[2022-06-25] MEDS: HEPARIN SOD 5,000 UNIT/0.5 ML VIAL SQ SCH ×4 (00:28→21:05)
[2022-06-25] MEDS: INSULIN ASPART PER UNIT SC SCH ×5 (00:31→20:57)
[2022-06-25] MEDS ORDERED: MAGNESIUM SULFATE / D5W 1 GM/100 ML BAG IV ONE (01:45)
[2022-06-25] MEDS: HYDROmorphone INJ 1 MG/ML SYRINGE IV PRN ×3 (01:51→13:53)
[2022-06-25] MEDS: LACTATED RINGER'S 1,000 ML IV SCH ×2 (04:38→23:50)
[2022-06-25 05:53] LABS: Appearance Urine Clear (Clear); Bilirubin Urine Negative (Negative); Blood Urine Negative (Negative); Color Urine Yellow; Glucose Urine UA Negative (Negative); Ketones Urine Negative (Negative); Leukocyte Esterase Urine Negative (Negative); Nitrite Urine Negative (Negative); Protein Urine Negative (Negative); Specific Gravity Urine 1.021 (1.000-1.030); Urobilinogen Urine Negative (Negative)
--- NOTE | 2022-06-25 07:04 | Magnetic Resonance Report ---
MRI OF THE BRAIN WITHOUT IV CONTRAST CLINICAL HISTORY: Right lower extremity weakness. COMPARISON STUDY: CT of the brain dated 06/24/2022. TECHNIQUE: MRI of the brain was performed utilizing various T1 and T2-weighted sequences in the axial , sagittal, and coronal planes. IV contrast was not administered for this examination. FINDINGS: Brain parenchyma: The brain parenchyma is normal in appearance. There is no hemorrhage or mass effect . There is no restricted diffusion to suggest acute ischemia. Lei-white matter differentiation is pr eserved. No extra-axial fluid collection is seen. The cerebellar tonsils are normal in configuration. Ventricles, sulci, and cisterns: Normal in configuration. Pituitary and sella: Unremarkable. Intracranial vasculature: Normal flow voids are maintained at the skull base. Orbits: The bony orbits are grossly intact. Orbital contents are normal in appearance. Sinuses and mastoids: There is trace mucosal thickening in the right sphenoid sinus. The remaining pa ranasal sinuses are clear, as are the mastoid air cells. Calvarium: Unremarkable. Cervical cord: Partially visualized cervical spinal cord is normal in morphology and signal intensity . IMPRESSION: No acute intracranial abnormality. ACT 112: Negative or not required by law. Electronically signed by: Kevin Kessler M.D. 06/25/2022 7:02 AM
[2022-06-25] MEDS ORDERED: carvediloL 3.125 MG TAB PO SCH (07:30)
[2022-06-25 07:49] LABS: Basophils # (auto) 0.07 K/uL (0-0.2); Basophils % (auto) 0.6 %; Eosinophils # (auto) 0.44 K/uL (0-0.50); Eosinophils % (auto) 3.8 %; Hematocrit (blood only) 37.8 % (40.1-51.0); Hemoglobin 12.4 g/dl (14.0-18.0); Immature Granulocytes # (auto) 0.08 K/uL (0.00-0.02); Immature Granulocytes % (auto) 0.7 %; Lymphocytes # (auto) 2.77 K/uL (1.2-3.4); Mean Corpuscular Hemoglobin 28.2 pg (25.0-34.0); Mean Corpuscular Hgb Conc 32.8 g/dL (32.0-36.0); Mean Corpuscular Volume 86.1 fL (80.0-100.0); Mean Platelet Volume 8.9 fL (9.4-12.4); Monocytes # (auto) 1.04 K/uL (0.24-0.82); Neutrophils # (auto) 7.16 K/uL (1.4-6.5); Neutrophils % (auto) 61.9 %; Platelet Count 223 K/uL (130-400); RDW Coefficient of Variation 14.6 % (11.5-14.5); RDW Standard Deviation 46.2 fL (36.4-46.3); Red Blood Count 4.39 M/uL (4.63-6.08); White Blood Count 11.56 K/ul (4.8-10.8)
[2022-06-25 08:26] LABS: BUN Creatinine Ratio 19.2 (10-20); Calcium 9.1 mg/dl (8.5-10.1); Chol HDL Ratio 5.4 (0-5); Creatinine Clr Calc Pharmacy 103.5 ml/min; Est GFR (African American) 63.7 ml/min; Potassium 3.6 mmol/L (3.5-5.1)
--- NOTE | 2022-06-25 08:27 | XRay Report ---
RIGHT TIBIA AND FIBULA 2 VIEWS CLINICAL HISTORY: Right leg pain. FINDINGS: AP and lateral views of the right tibia and fibula are obtained. No prior studies are avail able for comparison at the time of dictation. The skeletal structures are well-mineralized. There is no radiographic evidence of right tibial or fibular fracture. The knee and ankle joints appear mainta ined. Mild soft tissue swelling is seen in the calf. Soft tissue calcifications are noted within the medial calf musculature. Phleboliths are present in the pretibial tissues. There are tiny dorsal and plantar calcaneal enthesophytes. An os trigonum is incidentally noted. IMPRESSION: Soft tissue swelling with no acute bony abnormality identified. Electronically signed by: Kevin Kessler M.D. 06/25/2022 8:26 AM
--- NOTE | 2022-06-25 08:31 | Magnetic Resonance Report ---
MRA OF THE INTRACRANIAL CIRCULATION WITHOUT CONTRAST CLINICAL HISTORY: Right lower extremity weakness. COMPARISON STUDY: Head CT June 24, 2022. TECHNIQUE: Utilizing a 1.5 Carmel magnet and 3-D [id number] technique, unenhanced MRA of the intra cranial circulation was obtained. FINDINGS: Please note that the MRI of the brain will be reported separately. The bilateral M1, M2, A1 and A2 segments are patent. There is no intracranial aneurysm. There is no central vessel occlusion. No stenosis within the intracranial vessels is identified. Posterior circulation is intact. IMPRESSION: Unremarkable MRA of the head. ACT 112: Negative or not required by law. Electronically signed by: Zaid Parekh M.D. 06/25/2022 8:29 AM
[2022-06-25] MEDS ORDERED: ASPIRIN 81 MG ECTAB PO SCH (09:00)
[2022-06-25] MEDS: METOCLOPRAMIDE HCL 5 MG TABLET PO SCH ×2 (09:07→16:20)
[2022-06-25] MEDS: PANTOprazole 40 MG TAB PO SCH (09:08)
[2022-06-25] MEDS: CITALOPRAM 40 MG TAB PO SCH (09:08)
--- NOTE | 2022-06-25 14:57 | Hospitalist Progress Note ---
Date of Service June 25, 2022 Assessment & Plan (1) Right leg weakness: Plan: Associated with numbness and pain. ? Mild rhabdomyolysis given CPK elevation No evidence of CVA With clinical history of reported trauma and subsequent symptoms, along with neurologic deficits and inability to walk, there is concern for lumbar spine pathology. Has a h/o disc disease with L spine MRI Mar 2019 revealing moderate disc protrusion at L2-3, L3-4, L4-5 and disc herniation at L5-S1 with associated facet arthropathy and spinal stenosis. Repeat MRI L-spine is needed Patient is possibly unable to fit into the machine, but will try because this is a "feet first" exam For pain control, hold narcotics and given Toradol and Valium scheduled Ice for discomfort Ortho spine consult. PT/OT saw him today. hypertension, BP on the lower side hyperlipidemia on statin Rx DM2 diet-controlled, well-controlled as of outpatient hemoglobin A1c of 6.4 last June 2021 LEIGH on CPAP CRI, creatinine at baseline chronic anemia, hemoglobin at baseline Hypokalemia secondary to diuretic Rx Morbid obesity-doing well on the path to continued weight loss (lost 40 lbs in the last 4-6 months) Transfer to floor with no further concern for stroke Stop aspirin and Toradol as above. Hold antihypertensives at this time. Monitor CPK response to IVF, hold statin until CPK within normal limits Further management pending work-up results Hold home diuretic while patient getting IV hydration Basal bolus insulin, ISS BG goal 1 10-1 40, carb count coverage, update hemoglobin A1c DVT prophylaxis. Heparin subcu Full code Letty Hauser DO [facility] Hospitalist Admission and Anticipated Discharge Date Admission Date: June 24, 2022 Subjective 47 yo with acute RLE weakness x 5 days Reports RLE pain is on lateral calf and is severe There is worsening pain in his right lateral thigh There is numbness in his distal lateral right calf and foot compared with left He is unable to ambulate or control movement in his RLE Proprioception is off on the right leg Denies back pain but felt a pop and a strange feeling in his lower back last week when exerting himself Review of Systems Review of Systems: All systems were reviewed and negative except as indicated on subjective above. Physical Exam Physical Exam: CONSTITUTIONAL: obese, vitals as above, generally well- appearing, NAD EYES: normal conjunctivae, no scleral icterus ENT: external ear and nose normal, MMM NECK: trachea midline RESPIRATORY: clear to auscultation bilaterally, no crackles, rales or wheezes, normal respiratory effort CARDIOVASCULAR: regular rate and rhythm, S1 and 2 heard without murmurs, gallops or rubs, no JVD, no peripheral edema CHEST: inspection of chest was normal GASTROINTESTINAL: soft, nontender, ND, no guarding MUSCULOSKELETAL: strength 5/5 throughout except for RLE RLE: 3/5 hip flexion, 5/5 hip extension, 5/5 knee abduction/adduction, 4/5 knee flexion/extension, 2/5 dorsiflexion, 5/5 plantarflexion. BACK: no TTP of back or paraspinal musculature. Limited exam 2/2 obesity but no SI joint tenderness was appreciated. SKIN: warm and dry NEUROLOGIC: CN 2-12 grossly intact, normal cognition, normal speech RLE: numbness to lateral right calf and right foot compared to normal left. PSYCHIATRIC: alert cooperative and oriented to person, place and time. Results & Data Results & Data ([facility]) Vital Signs (Past 12 Hours) Vital Signs Temp Pulse Pulse Resp BP Pulse Ox O2 Del Method 06/25/22 11:34 36.3 C L 62 21 118/69 97 Room Air 06/25/22 11:21 56 L 06/25/22 07:52 36.4 C L 58 L 20 119/71 97 Laboratory Results Short CBC 06/25/22 Range/Units 07:37 WBC 11.56 H (4.8-10.8) K/ul Hgb 12.4 L (14.0-18.0) g/dl Hct 37.8 L (40.1-51.0) % Plt Count 223 (130-400) K/uL BMP 06/25/22 07:37 Sodium 139 Potassium 3.6 Chloride 101 Carbon Dioxide 32 BUN 29 H Creatinine 1.51 H Glucose 116 H Calcium 9.1 Cardiac Enzymes 06/24/22 06/25/22 Range/Units 13:43 07:37 Total Creatine Kinase 415 H 213 (30-223) U/L Urine 06/25/22 Range/Units 05:30 Urine Color Yellow Urine Appearance Clear (Clear) Urine pH 5.0 (4.5-7.5) Ur Specific [place] 1.021 (1.000-1.030) Urine Protein Negative (Negative) Urine Glucose (UA) Negative (Negative) Diagnostic Findings Tibia/Fibula X-Ray 06/25/22 00:06 RIGHT TIBIA AND FIBULA 2 VIEWS CLINICAL HISTORY: Right leg pain. FINDINGS: AP and lateral views of the right tibia and fibula are obtained. No prior studies are available for comparison at the time of dictation. The skeletal structures are well-mineralized. There is no radiographic evidence of right tibial or fibular fracture. The knee and ankle joints appear maintained. Mild soft tissue swelling is seen in the calf. Soft tissue calcifications are noted within the medial calf musculature. Phleboliths are present in the pretibial tissues. There are tiny dorsal and plantar calcaneal enthesophytes. An os trigonum is incidentally noted. IMPRESSION: Soft tissue swelling with no acute bony abnormality identified. Electronically signed by: Kevin Kessler M.D. 06/25/2022 8:26 AM Brain MRI 06/25/22 00:07 MRI OF THE BRAIN WITHOUT IV CONTRAST CLINICAL HISTORY: Right lower extremity weakness. COMPARISON STUDY: CT of the brain dated 06/24/2022. TECHNIQUE: MRI of the brain was performed utilizing various T1 and T2-weighted sequences in the axial, sagittal, and coronal planes. IV contrast was not administered for this examination. FINDINGS: Brain parenchyma: The brain parenchyma is normal in appearance. There is no hemorrhage or mass effect. There is no restricted diffusion to suggest acute ischemia. Lei-white matter differentiation is preserved. No extra-axial fluid collection is seen. The cerebellar tonsils are normal in configuration. Ventricles, sulci, and cisterns: Normal in configuration. Pituitary and sella: Unremarkable. Intracranial vasculature: Normal flow voids are maintained at the skull base. Orbits: The bony orbits are grossly intact. Orbital contents are normal in appearance. Sinuses and mastoids: There is trace mucosal thickening in the right sphenoid sinus. The remaining paranasal sinuses are clear, as are the mastoid air cells. Calvarium: Unremarkable. Cervical cord: Partially visualized cervical spinal cord is normal in morphology and signal intensity. IMPRESSION: No acute intracranial abnormality. ACT 112: Negative or not required by law. Electronically signed by: Kevin Kessler M.D. 06/25/2022 7:02 AM Head MRA 06/25/22 00:07 MRA OF THE INTRACRANIAL CIRCULATION WITHOUT CONTRAST CLINICAL HISTORY: Right lower extremity weakness. COMPARISON STUDY: Head CT June 24, 2022. TECHNIQUE: Utilizing a 1.5 Carmel magnet and 3-D ikwa-su-arkobu technique, unenhanced MRA of the intracranial circulation was obtained. FINDINGS: Please note that the MRI of the brain will be reported separately. The bilateral M1, M2, A1 and A2 segments are patent. There is no intracranial aneurysm. There is no central vessel occlusion. No stenosis within the intracranial vessels is identified. Posterior circulation is intact. IMPRESSION: Unremarkable MRA of the head. ACT 112: Negative or not required by law. Electronically signed by: Zaid Parekh M.D. 06/25/2022 8:29 AM Medications Administered Current Inpatient Medications Acetaminophen (Acetaminophen 325 Mg Tab) 650 mg PO Q4H PRN PRN Reason: Pain or Fever Stop: 07/24/22 23:30 Aspirin (Aspirin 81 Mg Ectab) 81 mg PO QAM [facility] Stop: 07/25/22 08:59 Last Admin: 06/25/22 09:08 Dose: 81 mg Citalopram Hydrobromide (Citalopram 40 Mg Tab) 40 mg PO QAM [facility] Stop: 07/25/22 08:59 Last Admin: 06/25/22 09:08 Dose: 40 mg Dextrose (Dextrose 50% 50 Ml Syringe) 25 - 50 ml IV UD PRN; Protocol PRN Reason: Hypoglycemia Protocol Stop: 07/24/22 23:30 Diazepam (Diazepam 5 Mg Tablet) 5 mg PO Q8H [facility] Stop: 07/25/22 15:44 Last Admin: 06/25/22 16:18 Dose: 5 mg Gabapentin (Gabapentin 300 Mg Cap) 600 mg PO HS [facility] Stop: 07/24/22 23:30 Last Admin: 06/25/22 00:25 Dose: 600 mg Glucagon (Glucagon For Inj 1 Mg Vial) 1 mg SQ UD PRN; Protocol PRN Reason: Hypoglycemia Protocol Stop: 07/24/22 23:30 Glucose (Glucose 40% Gel 15 Gm Tube) 15 - 30 gm PO UD PRN; Protocol PRN Reason: Hypoglycemia Protocol Stop: 07/24/22 23:30 Glucose (Glucose 10 Tab/Tube) 4 - 8 tab PO UD PRN; Protocol PRN Reason: Hypoglycemia Treatment Stop: 07/24/22 23:30 Heparin Sodium (Porcine) (Heparin Sod 5,000 Unit/0.5 Ml Vial) 5,000 units SQ Q8 [facility] Stop: 07/24/22 23:30 Last Admin: 06/25/22 13:53 Dose: 5,000 units Hydromorphone HCl (Hydromorphone Inj 1 Mg/Ml Syringe) 1 mg IV Q6H PRN PRN Reason: Pain Stop: 07/08/22 20:44 Last Admin: 06/25/22 13:53 Dose: 1 mg Promethazine HCl 12.5 mg/ (Sodium Chloride) 50.5 mls @ 202 mls/hr IV Q6H PRN PRN Reason: Nausea And Vomiting Stop: 07/24/22 20:44 Lactated Ringer's (Lr) 1,000 mls @ 100 mls/hr IV .Q10H [facility] Stop: 06/26/22 03:29 Last Admin: 06/25/22 04:38 Dose: 100 mls/hr Insulin Aspart (Insulin Aspart Per Unit) 0 units SC ACHS [facility] Stop: 07/24/22 23:30 Last Admin: 06/25/22 12:42 Dose: 2 units Ketorolac Tromethamine (Ketorolac Tromethamine 15 Mg/Ml Vial) 15 mg IV Q8H [facility] Stop: 06/30/22 15:44 Last Admin: 06/25/22 16:18 Dose: 15 mg Metoclopramide HCl (Metoclopramide Hcl 5 Mg Tablet) 5 mg PO AC@0730,1630 [facility] Stop: 07/25/22 07:29 Last Admin: 06/25/22 16:20 Dose: 5 mg Miscellaneous (Carbohydrates For Hypoglycemia ) 15 - 30 gm PO UD PRN PRN Reason: Hypoglycemia Protocol Stop: 07/24/22 23:30 Oxycodone HCl (Oxycodone Hcl Ir 5 Mg Tab (Immediate Release)) 5 - 10 mg PO QID PRN PRN Reason: Pain Stop: 07/08/22 20:44 Last Admin: 06/25/22 12:43 Dose: 10 mg Pantoprazole Sodium (Pantoprazole 40 Mg Tab) 40 mg PO QAM [facility] Stop: 07/25/22 08:59 Last Admin: 06/25/22 09:08 Dose: 40 mg
[2022-06-25] MEDS: KETOROLAC TROMETHAMINE 15 MG/ML VIAL IV SCH ×2 (16:18→23:48)
[2022-06-25] MEDS: diazePAM 5 MG TABLET PO SCH ×2 (16:18→23:47)
--- NOTE | 2022-06-25 18:41 | Magnetic Resonance Report ---
MR LUMBAR SPINE WO CON CLINICAL HISTORY: 47 years-old Male with RLE numbness, weakness, pain. Chronic low back pain with ri ght lower extremity numbness and weakness. COMPARISON: CT abdomen and pelvis 12/14/2019 TECHNIQUE: Multiplanar, multisequence MRI of the lumbar spine was performed without intravenous contr ast. FINDINGS: Conus medullaris terminates at the L1 level. Signal within the imaged thoracic spinal cord is within normal limits. No acute fracture, subluxation, endplate erosion or marrow replacing process. Mild Mod ic type I endplate degeneration at L4-L5. Study is limited secondary to patient body habitus. The miesha dy is also motion degraded. Discogenic degeneration with facet arthrosis described below. T12-L1: Mild spondylitic spurring with small circumferential annular disc bulge and mild facet arthr osis. No central canal or neural foraminal stenosis. L1-L2: Mild intervertebral disc space narrowing with spondylitic spurring and small circumferential annular disc bulge with moderate facet arthrosis. The central canal and left neural foramen are paten t. Mild right neural foraminal narrowing. L2-L3: Moderate intervertebral disc space narrowing and spondylitic spurring with moderate to large circumferential annular disc bulge. Additionally, there is a 1.3 cm central disc protrusion. Ligament um flavum thickening with moderate to severe facet arthrosis. Mild associated epidural lipomatosis. C onglomerate findings result in severe central canal stenosis, AP dimension of the thecal sac measurin g 6 mm. Mild bilateral neural foraminal narrowing. L3-L4: Moderate intervertebral disc space narrowing and spondylitic spurring with moderate-sized cir cumferential annular disc bulge. Ligamentum flavum thickening with severe facet arthrosis and epidura l lipomatosis. Central disc extrusion measures 0.9 x 0.7 cm in transverse and AP dimension extending for a craniocaudal length of 2.1 cm. There is severe central canal stenosis with severe narrowing of the lateral recesses. AP dimension of the thecal sac measures approximately 1 mm. Mild to moderate bi lateral neural foraminal narrowing. L4-L5: Moderate intervertebral disc space narrowing and spondylitic spurring with moderate-sized cir cumferential annular disc bulge. Ligamentum flavum thickening with severe facet arthrosis and mild ep idural lipomatosis. Moderate to severe central canal stenosis, AP dimension of the thecal sac measuri ng approximately 6 mm. There is at least moderate narrowing of the bilateral lateral recesses. Modera te bilateral foraminal narrowing. L5-S1: Mild to moderate intervertebral disc space narrowing with spondylitic spurring and circumfere ntial annular disc bulge. Central disc extrusion measures up to 1.2 cm in craniocaudal dimension. Lig amentum flavum thickening with severe facet arthrosis. There is abutment without displacement of the bilateral S1 nerve roots. There is mild narrowing of the lateral recesses. Mild central canal stenosi s with AP dimension of the thecal sac measuring approximately 10 mm. Mild to moderate right with vangie re left neural foraminal narrowing. IMPRESSION: 1. Limited study as above. 2. Multilevel discogenic degeneration with ligamentum flavum thickening and facet arthrosis as above. 3. Severe central canal stenosis is most pronounced at L3-L4 with multilevel neural foraminal narrowi ng. 4. No acute fracture. 5. Mild Modic type I endplate degeneration at L4-L5. ACT 112: Negative or not required by law. The above report was generated using voice recognition software. It may contain grammatical, syntax o r spelling errors. Dictated: 06/25/2022 5:36 PM Transcribed: 06/25/2022 6:32 PM Elis [id number] [facility] Electronically signed by: Sheldon Sawyer M.D. 06/25/2022 6:39 PM
[2022-06-25] MEDS ORDERED: DOXEPIN HCL 50 MG CAPSULE PO SCH (21:00)
[2022-06-26] MEDS: LACTATED RINGER'S 1,000 ML IV SCH (04:34)
[2022-06-26] MEDS: HEPARIN SOD 5,000 UNIT/0.5 ML VIAL SQ SCH ×2 (05:59→14:24)
[2022-06-26] MEDS ORDERED: KETOROLAC TROMETHAMINE 15 MG/ML VIAL IV PRN (07:57)
[2022-06-26] MEDS: PANTOprazole 40 MG TAB PO SCH (08:49)
[2022-06-26] MEDS: METOCLOPRAMIDE HCL 5 MG TABLET PO SCH ×2 (08:49→17:09)
[2022-06-26] MEDS: CITALOPRAM 40 MG TAB PO SCH (08:50)
[2022-06-26] MEDS: INSULIN ASPART PER UNIT SC SCH ×4 (08:51→20:23)
[2022-06-26 08:55] LABS: Anion Gap 7 (3-11); BUN Creatinine Ratio 18.2 (10-20); Blood Urea Nitrogen 29 mg/dl (6-23); Calcium 9.4 mg/dl (8.5-10.1); Carbon Dioxide 30 mmol/L (21-32); Chloride 100 mmol/L (98-107); Creatine Kinase 135 U/L (30-223); Creatinine Clr Calc Pharmacy 99.7 ml/min; Est GFR (African American) 59.9 ml/min; Est GFR (Non-African American) 51.7 ml/min; Glucose 105 mg/dl (70-99(Fasting)); Sodium 137 mmol/L (136-145)
--- NOTE | 2022-06-26 08:56 | Orthopedic Consultation ---
Date of Consultation June 26, 2022 Assessment & Plan (1) Lumbar disc herniation with radiculopathy: MRI lumbar spine available for review demonstrates significant multilevel degenerative disc disease with disc protrusions however there is a massive disc herniation at L3-L4 with a fragment migrating caudally. This creates severe spinal stenosis. I reviewed these findings with the patient. Undoubtedly this is contributing to his symptom complex and presentation. We discussed surgical invention. Would require a lumbar decompression fusion L3-L4. Risk benefits pros cons alternatives were outlined in detail. He understands he is at significant health risks in light of his body weight and health history. He understands. We will have him maximize medically and hope for surgery as soon as Tuesday. History of Present Illness Reason for Consultation: Right leg pain and weakness Attending Physician: Letty Hauser DO History of Present Illness This is a 47-year-old male that states approximately week ago he had the onset of bilateral thigh pain now specifically going to the right leg. He notes strength deficit involving predominantly the right quadricep plantar flexion dorsiflexion on the right. It is markedly limited his ability to stand and ambulate. Is quite intolerable. Denies any loss of bowel or bladder control. Allergies Allergy/AdvReac Type Severity Reaction Status Date / Time doxazosin [From Cardura] Allergy Unknown Unknown Verified 06/24/22 19:35 empagliflozin Allergy Unknown Unknown Verified 06/24/22 19:35 [From Jardiance] Home Medications Medication Instructions Recorded Confirmed Type amlodipine 10 mg tablet (Norvasc) 10 mg PO HS 11/26/18 06/24/22 History carvedilol 25 mg tablet (Coreg) 25 mg PO BIDM 11/26/18 06/24/22 History citalopram 40 mg tablet (Celexa) 40 mg PO QAM 11/26/18 06/24/22 History simvastatin 20 mg tablet (Zocor) 20 mg PO HS 11/26/18 06/24/22 History chlorthalidone 25 mg tablet 25 mg PO QAM 06/24/22 06/24/22 History doxepin 50 mg capsule 50 mg PO HS 06/24/22 06/24/22 History furosemide 40 mg tablet 40 mg PO QAM 06/24/22 06/24/22 History gabapentin 300 mg capsule 600 mg PO HS 06/24/22 06/24/22 History lisinopril 40 mg tablet 40 mg PO QAM 06/24/22 06/24/22 History metformin 500 mg tablet,extended 500 mg PO QPM 06/24/22 06/24/22 History release 24 hr metoclopramide HCl 5 mg tablet 5 mg PO BIDM 06/24/22 06/24/22 History omeprazole 40 mg capsule,delayed 40 mg PO QAM 06/24/22 06/24/22 History release terazosin 1 mg capsule 1 mg PO HS 06/24/22 06/24/22 History tramadol 50 mg tablet 50 mg PO BID PRN Pain 06/24/22 06/24/22 History Patient History Medical History (Updated 06/26/22 @ 08:55 by Piero Paul DO) Anxiety DM type 2 (diabetes mellitus, type 2) Heartburn current issues - Also describes feeling that pill is stuck and has lump in throat HTN (hypertension) Morbid obesity LEIGH on CPAP Surgical History History of appendectomy Family History Father COPD (chronic obstructive pulmonary disease) Heart disease Diabetes Mother Heart disease CABG Social History Smoking Status: Never smoker Hx Alcohol Use: Yes Alcohol type: beer Hx Substance Use: No Preferred Language: Guyanese Communication Ability: Effective Boomboat Operator Required: No Beliefs That Will Affect Care: None Current Living Situation: Spouse Feels Safe at Home: Yes Assistive Devices: None Physical Exam Physical Exam: This morning he is sitting up at the side of the bed. He demonstrates 4/5 right plantar flexion dorsiflexion with marked decrease in range of motion. His quadriceps are a 2/5. There is marked sensory deficits. Deep tendon reflexes absent. Left lower extremity is a plus 5 out of 5 plantar flexion dorsiflexion 4+ or 5 quadricep. Results & Data ([facility]) Vital Signs (Past 12 Hours) Vital Signs Temp Pulse Pulse Resp BP Pulse Ox O2 Del Method 06/26/22 08:04 36.5 C 55 L 20 127/77 93 Room Air 06/26/22 03:34 51 L 22 97 06/26/22 03:31 36.4 C L 55 L 16 146/77 H 96 06/25/22 23:18 36.9 C 62 18 125/73 94 06/25/22 22:03 58 L 22 96 FiO2 06/26/22 08:04 06/26/22 03:34 21 06/26/22 03:31 06/25/22 23:18 06/25/22 22:03 21
[2022-06-26] MEDS: diazePAM 5 MG TABLET PO PRN ×2 (09:03→15:23)
[2022-06-26 09:31] LABS: Basophils # (auto) 0.05 K/uL (0-0.2); Basophils % (auto) 0.6 %; Eosinophils # (auto) 0.42 K/uL (0-0.50); Eosinophils % (auto) 4.7 %; Hematocrit (blood only) 38.2 % (40.1-51.0); Hemoglobin 12.7 g/dl (14.0-18.0); Immature Granulocytes # (auto) 0.05 K/uL (0.00-0.02); Immature Granulocytes % (auto) 0.6 %; Lymphocytes # (auto) 2.17 K/uL (1.2-3.4); Lymphocytes % (auto) 24.3 %; Mean Corpuscular Hemoglobin 28.3 pg (25.0-34.0); Mean Corpuscular Hgb Conc 33.2 g/dL (32.0-36.0); Mean Corpuscular Volume 85.3 fL (80.0-100.0); Monocytes # (auto) 0.56 K/uL (0.24-0.82); Monocytes % (auto) 6.3 %; Neutrophils # (auto) 5.69 K/uL (1.4-6.5); Neutrophils % (auto) 63.5 %; Platelet Count 222 K/uL (130-400); RDW Coefficient of Variation 14.3 % (11.5-14.5); RDW Standard Deviation 44.2 fL (36.4-46.3); Red Blood Count 4.48 M/uL (4.63-6.08); White Blood Count 8.94 K/ul (4.8-10.8)
[2022-06-26] MEDS: diazePAM 5 MG TABLET PO SCH ×2 (10:35→21:32)
[2022-06-26] MEDS: KETOROLAC TROMETHAMINE 15 MG/ML VIAL IV SCH (10:35)
--- NOTE | 2022-06-26 12:17 | Hospitalist Progress Note ---
Date of Service June 26, 2022 Assessment & Plan (1) Lumbar disc herniation with radiculopathy: Plan: Worsened evidence of herniation and spinal stenosis on repeat MRI yesterday. Plan for surgery with Dr. Paul early next week. He is still having difficulty moving but pain is improved on diazepam. NSAID must be stopped preoperatively. We will opt for scheduled Tylenol and add as needed oxycodone as needed. We will asked nurse to please separate diazepam and oxycodone administration by at least 2 hours to avoid polypharmacy and adverse side effects. Continue ice as tolerated. (2) Morbid obesity: Plan: Had a discussion about the importance of weight loss on an hospital day 2. He informed me he has already lost 40 pounds with current efforts and is planning to continue to lose weight. (3) DM type 2 (diabetes mellitus, type 2): Plan: Chronic, controlled. Continue current insulin coverage while holding oral di abetic meds. (4) LEIGH on CPAP: Plan: Continue this at night. (5) HTN (hypertension): Plan: Chronic, currently at goal. Continue to hold diuretic therapy given recent NSAID administration and history of CKD stage III. restart amlodipine. (6) CKD (chronic kidney disease), stage III: Plan: Chronic, stable, at goal. Continue to avoid nephrotoxic substances and monitor BMP daily. (7) DVT prophylaxis: Plan: Heparin-change to lovenox to reduce shot burden, also need slightly increased dose given weight Full code Disposition-continue hospital stay pending upcoming procedure Letty Hauser DO [facility] hospitalist Admission and Anticipated Discharge Date Admission Date: June 25, 2022 Subjective 47 yo with acute RLE weakness x 5 days Reports RLE pain is on lateral calf and is severe There is worsening pain in his right lateral thigh This is improved overnight with Toradol and Diazepam and ice. He is moving better today. Still with numbness Reviewed MRI results and recommendations by Dr. Paul for surgery Review of Systems Review of Systems: All systems were reviewed and negative except as indicated on subjective above. Physical Exam Physical Exam: CONSTITUTIONAL: obese, vitals as above, generally well- appearing, NAD EYES: normal conjunctivae, no scleral icterus ENT: external ear and nose normal, MMM NECK: trachea midline RESPIRATORY: clear to auscultation bilaterally, no crackles, rales or wheezes, normal respiratory effort CARDIOVASCULAR: regular rate and rhythm, S1 and 2 heard without murmurs, gallops or rubs, no JVD, no peripheral edema CHEST: inspection of chest was normal GASTROINTESTINAL: soft, nontender, ND, no guarding MUSCULOSKELETAL: strength 5/5 throughout except for RLE RLE: 3/5 hip flexion, 5/5 hip extension, 5/5 knee abduction/adduction, 4/5 knee flexion/extension, 2/5 dorsiflexion, 5/5 plantarflexion. BACK: no TTP of back or paraspinal musculature. Limited exam 2/2 obesity but no SI joint tenderness was appreciated. SKIN: warm and dry NEUROLOGIC: CN 2-12 grossly intact, normal cognition, normal speech, L knee reflex is 2/4 RLE: numbness to lateral right calf and right foot compared to normal left. Cannot elicit reflex. PSYCHIATRIC: alert cooperative and oriented to person, place and time. Results & Data Results & Data ([facility]) Vital Signs (Past 12 Hours) Vital Signs Temp Pulse Pulse Resp BP Pulse Ox O2 Del Method 06/26/22 08:00 57 L 06/26/22 08:04 36.5 C 55 L 20 127/77 93 Room Air 06/26/22 03:34 51 L 22 97 06/26/22 03:31 36.4 C L 55 L 16 146/77 H 96 FiO2 06/26/22 08:00 06/26/22 08:04 06/26/22 03:34 21 06/26/22 03:31 Laboratory Results Short CBC 06/26/22 06/26/22 Range/Units 07:55 09:08 WBC Cancelled 8.94 Hgb Cancelled 12.7 L Hct Cancelled 38.2 L Plt Count Cancelled 222 BMP 06/26/22 06/26/22 07:55 09:08 Sodium 137 Potassium TNP 3.8 Chloride 100 Carbon Dioxide 30 BUN 29 H Creatinine 1.59 H Glucose 105 H Calcium 9.4 Cardiac Enzymes 06/26/22 Range/Units 07:55 Total Creatine Kinase 135 (30-223) U/L Medications Administered Current Inpatient Medications Acetaminophen (Acetaminophen 325 Mg Tab) 650 mg PO Q4H PRN PRN Reason: Pain or Fever Stop: 07/24/22 23:30 Amlodipine Besylate (Amlodipine Besylate 5 Mg Tab) 10 mg PO DAILY@1700 [facility] Stop: 07/26/22 16:59 Citalopram Hydrobromide (Citalopram 40 Mg Tab) 40 mg PO QAM [facility] Stop: 07/25/22 08:59 Last Admin: 06/26/22 08:50 Dose: 40 mg Dextrose (Dextrose 50% 50 Ml Syringe) 25 - 50 ml IV UD PRN; Protocol PRN Reason: Hypoglycemia Protocol Stop: 07/24/22 23:30 Diazepam (Diazepam 5 Mg Tablet) 5 mg PO Q8H PRN PRN Reason: muscle spasm Stop: 07/25/22 15:44 Last Admin: 06/26/22 09:03 Dose: 5 mg Gabapentin (Gabapentin 300 Mg Cap) 600 mg PO HS [facility] Stop: 07/24/22 23:30 Last Admin: 06/25/22 21:06 Dose: 600 mg Glucagon (Glucagon For Inj 1 Mg Vial) 1 mg SQ UD PRN; Protocol PRN Reason: Hypoglycemia Protocol Stop: 07/24/22 23:30 Glucose (Glucose 40% Gel 15 Gm Tube) 15 - 30 gm PO UD PRN; Protocol PRN Reason: Hypoglycemia Protocol Stop: 07/24/22 23:30 Glucose (Glucose 10 Tab/Tube) 4 - 8 tab PO UD PRN; Protocol PRN Reason: Hypoglycemia Treatment Stop: 07/24/22 23:30 Heparin Sodium (Porcine) (Heparin Sod 5,000 Unit/0.5 Ml Vial) 5,000 units SQ Q8 [facility] Stop: 07/24/22 23:30 Last Admin: 06/26/22 05:59 Dose: 5,000 units Promethazine HCl 12.5 mg/ (Sodium Chloride) 50.5 mls @ 202 mls/hr IV Q6H PRN PRN Reason: Nausea And Vomiting Stop: 07/24/22 20:44 Insulin Aspart (Insulin Aspart Per Unit) 0 units SC ACHS [facility] Stop: 07/24/22 23:30 Last Admin: 06/26/22 08:51 Dose: 2 units Lisinopril (Lisinopril 40 Mg Tab) 40 mg PO QAM [facility] Stop: 07/26/22 12:29 Metoclopramide HCl (Metoclopramide Hcl 5 Mg Tablet) 5 mg PO AC@0730,1630 [facility] Stop: 07/25/22 07:29 Last Admin: 06/26/22 08:49 Dose: 5 mg Miscellaneous (Carbohydrates For Hypoglycemia ) 15 - 30 gm PO UD PRN PRN Reason: Hypoglycemia Protocol Stop: 07/24/22 23:30 Pantoprazole Sodium (Pantoprazole 40 Mg Tab) 40 mg PO [facility] Stop: 07/25/22 08:59 Last Admin: 06/26/22 08:49 Dose: 40 mg
[2022-06-26] MEDS: lisinopril 40 MG TAB PO SCH (14:24)
[2022-06-26] MEDS: amLODIPine BESYLATE 5 MG TAB PO SCH (17:10)
[2022-06-26] MEDS: oxyCODONE HCL IR 5 MG TAB (IMMEDIATE RELEASE) PO PRN (18:15)
[2022-06-26] MEDS: ENOXAPARIN INJ 40 MG/0.4 ML SYR SQ SCH (20:20)
[2022-06-26] MEDS: GABAPENTIN 300 MG CAP PO SCH (20:22)
[2022-06-26] MEDS: ACETAMINOPHEN 500 MG TAB PO SCH (21:32)
[2022-06-27] MEDS: diazePAM 5 MG TABLET PO SCH ×2 (06:01→13:22)
[2022-06-27] MEDS: ACETAMINOPHEN 500 MG TAB PO SCH ×3 (06:01→22:32)
[2022-06-27 07:25] LABS: Basophils # (auto) 0.05 K/uL (0-0.2); Basophils % (auto) 0.6 %; Eosinophils # (auto) 0.44 K/uL (0-0.50); Eosinophils % (auto) 5.7 %; Hemoglobin 12.5 g/dl (14.0-18.0); Immature Granulocytes # (auto) 0.04 K/uL (0.00-0.02); Immature Granulocytes % (auto) 0.5 %; Lymphocytes # (auto) 2.05 K/uL (1.2-3.4); Lymphocytes % (auto) 26.4 %; Mean Corpuscular Hemoglobin 28.5 pg (25.0-34.0); Mean Corpuscular Hgb Conc 33.8 g/dL (32.0-36.0); Mean Corpuscular Volume 84.5 fL (80.0-100.0); Mean Platelet Volume 9.1 fL (9.4-12.4); Monocytes # (auto) 0.74 K/uL (0.24-0.82); Monocytes % (auto) 9.5 %; Neutrophils # (auto) 4.44 K/uL (1.4-6.5); Neutrophils % (auto) 57.3 %; Platelet Count 212 K/uL (130-400); RDW Coefficient of Variation 14.2 % (11.5-14.5); RDW Standard Deviation 43.9 fL (36.4-46.3); Red Blood Count 4.38 M/uL (4.63-6.08); White Blood Count 7.76 K/ul (4.8-10.8)
[2022-06-27 07:48] LABS: BUN Creatinine Ratio 17.4 (10-20); Calcium 9.7 mg/dl (8.5-10.1); Creatinine Clr Calc Pharmacy 109.9 ml/min; Est GFR (African American) 67.5 ml/min; Est GFR (Non-African American) 58.2 ml/min; Potassium 3.4 mmol/L (3.5-5.1)
[2022-06-27] MEDS: METOCLOPRAMIDE HCL 5 MG TABLET PO SCH ×2 (08:22→16:53)
[2022-06-27] MEDS: CITALOPRAM 40 MG TAB PO SCH (08:22)
[2022-06-27] MEDS: ENOXAPARIN INJ 40 MG/0.4 ML SYR SQ SCH ×2 (08:23→20:32)
[2022-06-27] MEDS: PANTOprazole 40 MG TAB PO SCH (08:23)
[2022-06-27] MEDS: lisinopril 40 MG TAB PO SCH (08:23)
[2022-06-27] MEDS: POTASSIUM CHLORIDE CRTAB 20 MEQ TABCR PO SCH (08:25)
[2022-06-27] MEDS: INSULIN ASPART PER UNIT SC SCH ×4 (08:28→20:33)
[2022-06-27] MEDS: oxyCODONE HCL IR 5 MG TAB (IMMEDIATE RELEASE) PO PRN (08:33)
[2022-06-27] MEDS: CHLORTHALIDONE 25 MG TAB PO SCH (09:37)
--- NOTE | 2022-06-27 11:22 | Orthopedic Progress Note ---
Date of Service June 27, 2022 Assessment & Plan (1) Lumbar disc herniation with radiculopathy: Plan: This time he is cleared medically for surgery. I will make him n.p.o. after midnight we will hope for decompression fusion tomorrow. Risk benefits pros cons again outlined in detail. Admission and Anticipated Discharge Date Admission Date: June 25, 2022 Subjective Patient continues have severe leg pain and weakness. Physical Exam Physical Exam: On exam he is in the chair at the bedside. He exhibits marked deficit with right quadriceps. There is a 4-5 plantar flexion dorsiflexion as well. Left side is asymptomatic with excellent strength. Results & Data ([facility]) Vital Signs (Past 12 Hours) Vital Signs Temp Pulse Pulse Resp BP BP Pulse Ox 06/27/22 07:34 36.3 C L 55 L 18 148/70 H 93 06/27/22 03:00 54 L 21 94 06/27/22 03:00 36.4 C L 58 L 16 110/65 94 06/26/22 23:39 36.7 C 57 L 16 113/70 95 O2 Del Method 06/27/22 07:34 Room Air 06/27/22 03:00 06/27/22 03:00 06/26/22 23:39
--- NOTE | 2022-06-27 14:13 | Hospitalist Progress Note ---
Date of Service June 27, 2022 Assessment & Plan (1) Lumbar disc herniation with radiculopathy: Plan: Worsened evidence of herniation and spinal stenosis on repeat MRI. Patient cannot walk with neurologic deficits including numbness, weakness and pain localized to RLE. Plan for surgery with Dr. Paul early next week. Cont ice, Tylenol, change valium to baclofen, add dilaudid, cont oxy PRN. (2) Morbid obesity: Plan: Had a discussion about the importance of weight loss on an hospital day 2. He informed me he has already lost 40 pounds with current efforts and is planning to continue to lose weight. (3) DM type 2 (diabetes mellitus, type 2): Plan: Chronic, controlled. Continue current insulin coverage while holding oral diabetic meds. (4) LEIGH on CPAP: Plan: Continue this at night. (5) HTN (hypertension): Plan: Chronic, currently at goal. Restarted chlorthalidone today. Cont amlodipine and ACEI. (6) CKD (chronic kidney disease), stage III: Plan: Chronic, stable, at goal. Continue to avoid nephrotoxic substances and monitor BMP daily. (7) DVT prophylaxis: Plan: Heparin-change to lovenox to reduce shot burden, also need slightly increased dose given weight Full code Disposition-continue hospital stay pending upcoming procedure Letty Hauser DO [facility] hospitalist Admission and Anticipated Discharge Date Admission Date: June 25, 2022 Subjective 47 yo with acute RLE weakness x 5 days no change in symptoms persistent high level pain that is uncontrolled discussed options for symptom improvement patient also requesting laxative Review of Systems Review of Systems: All systems were reviewed and negative except as indicated on subjective above. Physical Exam Physical Exam: CONSTITUTIONAL: obese, vitals as above, generally well- appearing, NAD EYES: normal conjunctivae, no scleral icterus ENT: external ear and nose normal, MMM NECK: trachea midline RESPIRATORY: clear to auscultation bilaterally, no crackles, rales or wheezes, normal respiratory effort CARDIOVASCULAR: regular rate and rhythm, S1 and 2 heard without murmurs, gallops or rubs, no JVD, no peripheral edema CHEST: inspection of chest was normal GASTROINTESTINAL: soft, nontender, ND, no guarding MUSCULOSKELETAL: strength 5/5 throughout except for RLE RLE: 3/5 hip flexion, 5/5 hip extension, 5/5 knee abduction/adduction, 4/5 knee flexion/extension, 2/5 dorsiflexion, 5/5 plantarflexion. BACK: no TTP of back or paraspinal musculature. Limited exam 2/2 obesity but no SI joint tenderness was appreciated. SKIN: warm and dry NEUROLOGIC: CN 2-12 grossly intact, normal cognition, normal speech, L knee reflex is 2/4 RLE: numbness to lateral right calf and right foot compared to normal left. Cannot elicit reflex. PSYCHIATRIC: alert cooperative and oriented to person, place and time. Results & Data Results & Data ([facility]) Vital Signs (Past 12 Hours) Vital Signs Temp Pulse Pulse Resp BP BP Pulse Ox 06/27/22 07:34 36.3 C L 55 L 18 148/70 H 93 06/27/22 03:00 54 L 21 94 06/27/22 03:00 36.4 C L 58 L 16 110/65 94 O2 Del Method 06/27/22 07:34 Room Air 06/27/22 03:00 06/27/22 03:00 Laboratory Results Short CBC 06/27/22 Range/Units 06:52 WBC 7.76 (4.8-10.8) K/ul Hgb 12.5 L (14.0-18.0) g/dl Hct 37.0 L (40.1-51.0) % Plt Count 212 (130-400) K/uL BMP 06/27/22 06:52 Sodium 139 Potassium 3.4 L Chloride 101 Carbon Dioxide 31 BUN 25 H Creatinine 1.44 H Glucose 102 H Calcium 9.7 Medications Administered Current Inpatient Medications Acetaminophen (Acetaminophen 500 Mg Tab) 1,000 mg PO Q8H [facility] Stop: 07/26/22 21:59 Last Admin: 06/27/22 13:20 Dose: 1,000 mg Amlodipine Besylate (Amlodipine Besylate 5 Mg Tab) 10 mg PO DAILY@1700 [facility] Stop: 07/26/22 16:59 Last Admin: 06/26/22 17:10 Dose: 10 mg Chlorthalidone (Chlorthalidone 25 Mg Tab) 25 mg PO QAM [facility] Stop: 07/27/22 08:59 Last Admin: 06/27/22 09:37 Dose: 25 mg Citalopram Hydrobromide (Citalopram 40 Mg Tab) 40 mg PO QAM [facility] Stop: 07/25/22 08:59 Last Admin: 06/27/22 08:22 Dose: 40 mg Dextrose (Dextrose 50% 50 Ml Syringe) 25 - 50 ml IV UD PRN; Protocol PRN Reason: Hypoglycemia Protocol Stop: 07/24/22 23:30 Diazepam (Diazepam 5 Mg Tablet) 5 mg PO Q8H [facility] Stop: 07/26/22 21:59 Last Admin: 06/27/22 13:22 Dose: 5 mg Enoxaparin Sodium (Enoxaparin Inj 40 Mg/0.4 Ml Syr) 40 mg SQ Q12H [facility] Stop: 07/26/22 20:59 Last Admin: 06/27/22 08:23 Dose: 40 mg Gabapentin (Gabapentin 300 Mg Cap) 600 mg PO HS [facility] Stop: 07/24/22 23:30 Last Admin: 06/26/22 20:22 Dose: 600 mg Glucagon (Glucagon For Inj 1 Mg Vial) 1 mg SQ UD PRN; Protocol PRN Reason: Hypoglycemia Protocol Stop: 07/24/22 23:30 Glucose (Glucose 40% Gel 15 Gm Tube) 15 - 30 gm PO UD PRN; Protocol PRN Reason: Hypoglycemia Protocol Stop: 07/24/22 23:30 Glucose (Glucose 10 Tab/Tube) 4 - 8 tab PO UD PRN; Protocol PRN Reason: Hypoglycemia Treatment Stop: 07/24/22 23:30 Promethazine HCl 12.5 mg/ (Sodium Chloride) 50.5 mls @ 202 mls/hr IV Q6H PRN PRN Reason: Nausea And Vomiting Stop: 07/24/22 20:44 Insulin Aspart (Insulin Aspart Per Unit) 0 units SC ACHS [facility] Stop: 07/24/22 23:30 Last Admin: 06/27/22 13:22 Dose: 4 units Lisinopril (Lisinopril 40 Mg Tab) 40 mg PO QAM [facility] Stop: 07/26/22 12:44 Last Admin: 06/27/22 08:23 Dose: 40 mg Metoclopramide HCl (Metoclopramide Hcl 5 Mg Tablet) 5 mg PO AC@0730,1630 [facility] Stop: 07/25/22 07:29 Last Admin: 06/27/22 08:22 Dose: 5 mg Miscellaneous (Carbohydrates For Hypoglycemia ) 15 - 30 gm PO UD PRN PRN Reason: Hypoglycemia Protocol Stop: 07/24/22 23:30 Oxycodone HCl (Oxycodone Hcl Ir 5 Mg Tab (Immediate Release)) 5 mg PO Q6H PRN PRN Reason: severe uncontrolled pain Stop: 07/10/22 17:10 Last Admin: 06/27/22 08:33 Dose: 5 mg Pantoprazole Sodium (Pantoprazole 40 Mg Tab) 40 mg PO [facility] Stop: 07/25/22 08:59 Last Admin: 06/27/22 08:23 Dose: 40 mg Potassium Chloride (Potassium Chloride Crtab 20 Meq Tabcr) 40 meq PO [facility] Stop: 07/27/22 08:59 Last Admin: 06/27/22 08:25 Dose: 40 meq
[2022-06-27] MEDS ORDERED: POLYETHYLENE (MIRALAX) 17 GM PACK PO PRN (14:33)
[2022-06-27] MEDS ORDERED: HYDROmorphone INJ 0.5 MG/0.5 ML SYR IV STA (14:48)
[2022-06-27] MEDS ORDERED: BACLOFEN 10 MG TAB PO PRN (14:48)
[2022-06-27] MEDS ORDERED: BACLOFEN 10 MG TAB PO ONE (14:49)
[2022-06-27] MEDS: DOCUSATE SODIUM/SENNA 50/8.6MG TAB PO SCH (16:48)
[2022-06-27] MEDS: amLODIPine BESYLATE 5 MG TAB PO SCH (16:53)
[2022-06-27] MEDS: GABAPENTIN 300 MG CAP PO SCH (20:33)
[2022-06-27] MEDS ORDERED: HYDROmorphone INJ 1 MG/ML SYRINGE IV STA (22:06)
[2022-06-28] MEDS: LIDOCAINE 5% 1 PATCH TD SCH ×2 (02:50→20:19)
[2022-06-28] MEDS ORDERED: Nursing to Pharmacy Communication SCH ×2 (03:15→13:30)
[2022-06-28] MEDS: INSULIN ASPART PER UNIT SC SCH ×4 (06:06→21:49)
[2022-06-28] MEDS: ACETAMINOPHEN 500 MG TAB PO SCH ×3 (06:13→21:50)
[2022-06-28 06:23] LABS: Hematocrit (blood only) 37.1 % (40.1-51.0); Hemoglobin 12.4 g/dl (14.0-18.0); Mean Corpuscular Hemoglobin 28.3 pg (25.0-34.0); Mean Corpuscular Hgb Conc 33.4 g/dL (32.0-36.0); Mean Corpuscular Volume 84.7 fL (80.0-100.0); Platelet Count 218 K/uL (130-400); RDW Coefficient of Variation 14.3 % (11.5-14.5); RDW Standard Deviation 43.8 fL (36.4-46.3); Red Blood Count 4.38 M/uL (4.63-6.08); White Blood Count 8.07 K/ul (4.8-10.8)
[2022-06-28] MEDS: METOCLOPRAMIDE HCL 5 MG TABLET PO SCH ×2 (07:50→17:03)
[2022-06-28] MEDS: CHLORTHALIDONE 25 MG TAB PO SCH (07:51)
[2022-06-28] MEDS: DOCUSATE SODIUM/SENNA 50/8.6MG TAB PO SCH (07:51)
[2022-06-28] MEDS: CITALOPRAM 40 MG TAB PO SCH (07:51)
[2022-06-28] MEDS: PANTOprazole 40 MG TAB PO SCH (07:51)
[2022-06-28] MEDS: POTASSIUM CHLORIDE CRTAB 20 MEQ TABCR PO SCH (07:52)
[2022-06-28] MEDS: lisinopril 40 MG TAB PO SCH (07:52)
[2022-06-28] MEDS: ENOXAPARIN INJ 40 MG/0.4 ML SYR SQ SCH (07:52)
[2022-06-28] MEDS: HYDROmorphone INJ 0.5 MG/0.5 ML SYR IV PRN ×3 (11:14→21:50)
--- NOTE | 2022-06-28 13:23 | Hospitalist Progress Note ---
Date of Service June 28, 2022 Assessment & Plan (1) Lumbar disc herniation with radiculopathy: Plan: Lumbar spine MRI: Multilevel discogenic degeneration with ligamentum flavum thickening and facet arthrosis as above. Severe central canal stenosis is most pronounced at L3-L4 with multilevel neural foraminal narrowing. Patient cannot walk with neurologic deficits including numbness, weakness and pain localized to RLE. Spine ortho following, tentatively planning for OR tomorrow Cont ice, Tylenol, baclofen, Dilaudid, oxycodone (2) HTN (hypertension): Plan: Antihypertensives initially held on admission due to borderline low BP and concern for possible acute CVA, which has been ruled out. Home amlodipine, chlorthalidone, lisinopril have since been restarted. Historically has difficult to control hypertension on 6 different antihypertensives as an outpatient. BP currently well controlled. Terazosin remains on hold. Furosemide remains on hold, will continue to hold preoperatively. Carvedilol also remains on hold, noted HR 50s-60s. Will continue to hold as well. (3) DM type 2 (diabetes mellitus, type 2): Plan: Hgb A1c 6.4 06/2021, will update with a.m. labs NovoLog per protocol while hospitalized (4) LEIGH on CPAP: Plan: Continue CPAP as per home settings (5) CKD (chronic kidney disease), stage III: Plan: Baseline creatinine ~2.0 Creat stable Continue to monitor, avoid nephrotoxic agents as able (6) Morbid obesity: Plan: Patient told previous provider he already lost 40 pounds with current efforts and is planning to continue to lose weight. BMI 54.9 (7) DVT prophylaxis: Plan: Will hold Lovenox today due to tentative OR tomorrow SCDs DVT prophylaxis as per Ortho postop Admission and Anticipated Discharge Date Admission Date: June 25, 2022 Supervising Physician Co-Signing Physician Notes Patient seen and examined at bedside as a follow-up of lumbar text herniation with radiculopathy with inability to move RLE/pain along the lateral side of RLE. Orthospine on board, 4 OR tomorrow. N.p.o. midnight. Caution with antihypertensive during perioperative period. On examination, unable to move RLE, obesity class III, on room air, NAD, heart lung and abdomen examination fairly WNL. Rest of the examination as above. I have seen and examined the patient and have discussed the case with the provider above. I agree with the assessment and plan as stated. Subjective Follow-up for lumbar disc herniation with radiculopathy. Patient presented with acute RLE weakness/pain which continues. Pain controlled with current regimen. Patient denies bowel or bladder dysfunction. No chest pain or shortness of breath. Denies abdominal pain and nausea. Review of Systems Review of Systems: ROS per HPI, all other systems reviewed and negative Physical Exam Constitutional: WD/WN, vitals as above + obese Respiratory: normal respiratory effort, lungs clear to auscultation Cardiovascular: Rate/Rhythm: regular rate and regular rhythm Vessels: normal peripheral pulses Extremities: no edema Gastrointestinal (Abdomen): Percussion/Palpation: abdomen soft; abdomen nontender Musculoskeletal: strength 3-4/5 RLE Skin: no rashes, warm and dry Neurologic: no focal motor deficits (RLE weakness as above, otherwise no focal deficit) Psychiatric: A+Ox3, euthymic affect Results & Data Results & Data ([facility]) Vital Signs (Past 12 Hours) Vital Signs Temp Pulse Pulse Resp BP Pulse Ox O2 Del Method 06/28/22 12:00 36.4 C L 60 16 130/85 97 Room Air 06/28/22 08:15 36.3 C L 60 20 119/73 96 Room Air 06/28/22 08:06 56 L 06/28/22 04:22 60 15 98 06/28/22 02:01 59 L Laboratory Results Short CBC 06/28/22 Range/Units 05:27 WBC 8.07 (4.8-10.8) K/ul Hgb 12.4 L (14.0-18.0) g/dl Hct 37.1 L (40.1-51.0) % Plt Count 218 (130-400) K/uL
--- NOTE | 2022-06-28 16:59 | Anesthesiology Consultation ---
Date of Service June 28, 2022 Assessment & Plan (1) Encounter for pre-operative examination: Chart Review Chart Review: Acceptable Risk for Surgery and Patient NOT seen in Pre Admission Testing Consults Requested none History Surgery Operation Date: 06/29/22 07:45 Proposed Procedures p Decompression Fusion L3-4 - Piero Paul DO Height/Weight Height: 6 ft Weight: 183.7 kg Allergies Allergy/AdvReac Type Severity Reaction Status Date / Time doxazosin [From Cardura] Allergy Unknown Unknown Verified 06/24/22 19:35 empagliflozin Allergy Unknown Unknown Verified 06/24/22 19:35 [From [facility]] Medications Home Medications Medication Instructions Recorded Confirmed Last Taken amlodipine 10 mg tablet (Norvasc) 10 mg PO HS 11/26/18 06/24/22 06/23/22 carvedilol 25 mg tablet (Coreg) 25 mg PO BIDM 11/26/18 06/24/22 06/24/22 am citalopram 40 mg tablet (Celexa) 40 mg PO QAM 11/26/18 06/24/22 06/24/22 simvastatin 20 mg tablet (Zocor) 20 mg PO HS 11/26/18 06/24/22 06/23/22 chlorthalidone 25 mg tablet 25 mg PO QAM 06/24/22 06/24/22 06/24/22 doxepin 50 mg capsule 50 mg PO HS 06/24/22 06/24/22 06/23/22 furosemide 40 mg tablet 40 mg PO QAM 06/24/22 06/24/22 06/24/22 gabapentin 300 mg capsule 600 mg PO 06/24/22 06/24/22 06/23/22 lisinopril 40 mg tablet 40 mg PO QAM 06/24/22 06/24/22 06/24/22 metformin 500 mg tablet,extended 500 mg PO QPM 06/24/22 06/24/22 06/23/22 release 24 hr metoclopramide HCl 5 mg tablet 5 mg PO BIDM 06/24/22 06/24/22 06/24/22 am omeprazole 40 mg capsule,delayed 40 mg PO QAM 06/24/22 06/24/22 06/24/22 release terazosin 1 mg capsule 1 mg PO 06/24/22 06/24/22 06/23/22 tramadol 50 mg tablet 50 mg PO BID PRN Pain 06/24/22 06/24/22 Unknown Active Medications Generic Name Dose Route Start Last Admin Trade Name Bryant PRN Reason Stop Dose Admin Acetaminophen 1,000 mg 06/26/22 22:00 06/28/22 13:35 Acetaminophen 500 Mg Tab PO 07/26/22 21:59 1,000 mg Q8H CONNOR Administration Amlodipine Besylate 10 mg 06/26/22 17:00 06/27/22 16:53 Amlodipine Besylate 5 Mg Tab PO 07/26/22 16:59 10 mg DAILY@1700 CONNOR Administration Chlorthalidone 25 mg 06/27/22 09:00 06/28/22 07:51 Chlorthalidone 25 Mg Tab PO 07/27/22 08:59 Not Given QAM CONNOR Citalopram Hydrobromide 40 mg 06/25/22 09:00 06/28/22 07:51 Citalopram 40 Mg Tab PO 07/25/22 08:59 40 mg QAM CONNOR Administration Gabapentin 600 mg 06/24/22 23:31 06/27/22 20:33 Gabapentin 300 Mg Cap PO 07/24/22 23:30 600 mg HS CONNOR Administration Hydromorphone HCl 0.5 mg 06/27/22 14:48 06/28/22 11:14 Hydromorphone Inj 0.5 Mg/0.5 Ml Syr IV 07/11/22 14:47 0.5 mg Q4H PRN Administration severe breakthough pain Lidocaine 1 patch 06/27/22 22:10 06/28/22 02:50 Lidocaine 5% 1 Patch TD 07/27/22 22:09 1 patch HS CONNOR Administration Lisinopril 40 mg 06/26/22 12:45 06/28/22 07:52 Lisinopril 40 Mg Tab PO 07/26/22 12:44 Not Given QAM CONNOR Metoclopramide HCl 5 mg 06/25/22 07:30 06/28/22 07:50 Metoclopramide Hcl 5 Mg Tablet PO 07/25/22 07:29 5 mg AC@0730,1630 CONNOR Administration Miscellaneous 1 each 06/28/22 09:00 06/28/22 07:52 Remove Lidoderm Patch N/A 07/28/22 08:59 1 each DAILY@0900 CONNOR Administration Oxycodone HCl 5 mg 06/26/22 17:11 06/27/22 08:33 Oxycodone Hcl Ir 5 Mg Tab (Immediate Release) PO 07/10/22 17:10 5 mg Q6H PRN Administration severe uncontrolled pain Pantoprazole Sodium 40 mg 06/25/22 09:00 06/28/22 07:51 Pantoprazole 40 Mg Tab PO 07/25/22 08:59 40 mg QAM CONNOR Administration Potassium Chloride 40 meq 06/27/22 09:00 06/28/22 07:52 Potassium Chloride Crtab 20 Meq Tabcr PO 07/27/22 08:59 Not Given QAM CONNOR Senna/Docusate Sodium 1 tab 06/27/22 14:45 06/28/22 07:51 Docusate Sodium/Senna 50/8.6mg Tab PO 07/27/22 14:44 Not Given QAM CONNOR NPO Date Last Intake of Fluids: 06/28/22 Time Last Intake of Fluids: 08:00 Last Intake of Fluids Comment: small sip with meds Date Last Intake of Solids: 06/27/22 Time Last Intake of Solids: 17:30 Past Medical History Medical History Anxiety CKD (chronic kidney disease), stage III DM type 2 (diabetes mellitus, type 2) Heartburn current issues - Also describes feeling that pill is stuck and has lump in throat HTN (hypertension) Morbid obesity LEIGH on CPAP Past Family History Family History Father COPD (chronic obstructive pulmonary disease) Heart disease Diabetes Mother Heart disease CABG Past Surgical History Surgical History History of appendectomy Social History Smoking Status: Never smoker Hx Alcohol Use: Yes Alcohol type: beer alcohol intake frequency: 0-2 drinks per day Hx Substance Use: No substance use type: does not use Physical Exam Vital Signs Last Vital Signs Temp 36.4 C L 06/28/22 12:00 Pulse 60 06/28/22 12:00 Resp 16 06/28/22 12:00 BP 130/85 06/28/22 12:00 Pulse Ox 97 06/28/22 12:00 O2 Del Method 06/28/22 12:00 FiO2 21 06/26/22 03:34 Testing Laboratory Results 06/28/22 05:27 06/27/22 06:52 PT 10.7 Seconds (9.0-12.0) 06/24/22 13:43 INR 1.0 (0.9-1.1) 06/24/22 13:43 APTT 27.3 Seconds (21.0-31.0) 06/24/22 13:43 Urine Color Yellow 06/25/22 05:30 Urine Appearance Clear (Clear) 06/25/22 05:30 Urine pH 5.0 (4.5-7.5) 06/25/22 05:30 Ur Specific [place] 1.021 (1.000-1.030) 06/25/22 05:30 Urine Protein Negative (Negative) 06/25/22 05:30 Urine Glucose (UA) Negative (Negative) 06/25/22 05:30 Urine Ketones Negative (Negative) 06/25/22 05:30 Urine Nitrite Negative (Negative) 06/25/22 05:30 Ur Leukocyte Esterase Negative (Negative) 06/25/22 05:30 06/28/22 06/28/22 06/28/22 16:23 12:09 06:01 POC Glucose 96 92 113 H Electrocardiogram Date: 06/24/22 DICTATED BY:Eric Sorenson MD Test Reason : Blood Pressure : / mmHG Vent. Rate : 064 BPM Atrial Rate : 064 BPM P-R Int : 202 ms QRS Dur : 098 ms QT Int : 416 ms P-R-T Axes : 029 025 046 degrees QTc Int : 429 ms Normal sinus rhythm When compared with ECG of 27-NOV-2018 06:28, No significant change was found Confirmed by Eric Sorenson ([id number]) on 06/24/2022 4:48:21 PM Referred By: Confirmed By:Charli Sorenson Chest X-Ray Date: 06/24/22 XR chest 2V PA/lateral CLINICAL HISTORY: blood clot TECHNIQUE: 2 views of the chest were obtained. Comparison: Comparison is made to chest radiograph 11/26/2018 FINDINGS: Exam is limited by underpenetration. The cardiomediastinal silhouette is mildly enlarged, stable. The lungs are clear. No evidence of pleural effusion or pneumothorax. IMPRESSION: No acute chest disease. ACT 112: Negative or not required by law.
[2022-06-28] MEDS: amLODIPine BESYLATE 5 MG TAB PO SCH (17:02)
[2022-06-28] MEDS: oxyCODONE HCL IR 5 MG TAB (IMMEDIATE RELEASE) PO PRN (20:24)
[2022-06-28] MEDS: GABAPENTIN 300 MG CAP PO SCH (20:27)
[2022-06-29] MEDS: ACETAMINOPHEN 500 MG TAB PO SCH (05:48)
[2022-06-29] MEDS: INSULIN ASPART PER UNIT SC SCH ×4 (06:38→22:12)
[2022-06-29] MEDS ORDERED: GLYCOPYRROLATE 0.2 MG/ML VIAL ONE (07:03)
[2022-06-29] MEDS ORDERED: DEXAMETHASONE SOD INJ 4 MG/ML VIAL ONE (07:03)
[2022-06-29] MEDS ORDERED: MIDAZOLAM HCL 1 MG/ML 2ML VIAL ONE ×2 (07:03→07:54)
[2022-06-29] MEDS ORDERED: ceFAZolin 330 MG/ML 1 GM VIAL ONE (07:03)
[2022-06-29] MEDS ORDERED: fentaNYL citrate 100 MCG/2 ML VIAL ONE ×2 (07:03→09:48)
[2022-06-29] MEDS ORDERED: BUPIVACAINE/EPINEPHRINE 0.25% 1:200,000 30 ML VIAL ONE (07:03)
[2022-06-29] MEDS ORDERED: NEOSTIGMINE METHYLSULFATE 1 MG/ML 10ML VIAL ONE (07:03)
[2022-06-29] MEDS ORDERED: ROCURONIUM BROMIDE 10 MG/ML 5 ML VIAL IV ONE ×6 (07:03→08:19)
[2022-06-29] MEDS ORDERED: PROPOFOL IV EMULSION 10 MG/ML 20 ML VIAL IV ONE (07:03)
[2022-06-29] MEDS ORDERED: LIDOCAINE 2% MPF LOCAL 5 ML VIAL INFIL ONE (07:03)
[2022-06-29] MEDS ORDERED: ONDANSETRON INJ 2 MG/ML 2 ML VIAL ONE (07:03)
[2022-06-29] MEDS ORDERED: SUCCINYLCHOLINE CHLORIDE 20 MG/ML 10 ML VIAL IV ONE (07:06)
[2022-06-29] MEDS ORDERED: KETAMINE 50 MG/5 ML SYRINGE ONE (07:10)
[2022-06-29 07:27] LABS: Calcium 9.9 mg/dl (8.5-10.1); Creatinine Clr Calc Pharmacy 101.5 ml/min; Est GFR (African American) 61.3 ml/min; Est GFR (Non-African American) 52.9 ml/min; Potassium 3.9 mmol/L (3.5-5.1)
--- NOTE | 2022-06-29 07:40 | History & Physical Bridge Note ---
Date of Service June 29, 2022 History & Physical Bridge Note I have examined the patient, reviewed the History & Physical and in the interval since the performance of the History & Physical I have noted the following changes of clinical significance: no changes noted Lumbar decompression and fusion L3-L4
[2022-06-29] MEDS ORDERED: ATROPINE SULFATE 0.1 MG/ML 10ML SYR IV PRN (07:47)
[2022-06-29] MEDS ORDERED: ONDANSETRON INJ 2 MG/ML 2 ML VIAL IV PRN ×2 (07:47→12:02)
[2022-06-29] MEDS ORDERED: ePHEDrine sulfate 50 MG/ML AMP IV PRN (07:47)
[2022-06-29] MEDS: CHLORTHALIDONE 25 MG TAB PO SCH (09:12)
[2022-06-29] MEDS: METOCLOPRAMIDE HCL 5 MG TABLET PO SCH ×2 (09:12→16:37)
[2022-06-29] MEDS: PANTOprazole 40 MG TAB PO SCH (09:13)
[2022-06-29] MEDS: POTASSIUM CHLORIDE CRTAB 20 MEQ TABCR PO SCH (09:13)
[2022-06-29] MEDS: CITALOPRAM 40 MG TAB PO SCH (09:13)
[2022-06-29] MEDS: DOCUSATE SODIUM/SENNA 50/8.6MG TAB PO SCH ×2 (09:13→22:11)
[2022-06-29] MEDS: lisinopril 40 MG TAB PO SCH (09:13)
--- NOTE | 2022-06-29 10:08 | Operative Report ---
Post Operative Report Pre & Post Diagnosis Operation Date: 06/29/22 07:45 Pre-Op Diagnosis: Discitis with spinal stenosis and lower extremity weakness Morbid obesity Post-Op Diagnosis: Same I identified the patient and participated in the time-out.: Yes Procedure Operation Date: 06/29/22 07:45 Actual Procedures #1 lumbar decompression bilateral medial facetectomies and foraminotomies L2-L3 L3-L4 per #2 posterior spinal fusion L3-L4. #3 placement posterior instrumentation L3-4. #4 interbody fusion L3-L4. #5 placement of Spira 13 x 26 mm cage at L3-L4. #6 placement locally harvested morselized autograft in the posterior gutters. #7 placement of I factor combined with V toss in the interbody space and posterior lateral gutters. Surgeon Piero Paul, DO [employer] Kelsea Solorio Estimated Blood Loss 350 Findings See Below The patient is 6 feet tall weighing over 183 kg with a BMI in excess of 54. Patient's body habitus did contribute to significant technical difficulty requiring her deepest retractors and longer instruments in order to perform his procedure. Doubling her normal efforts. hIs habitus added at least 100% increase in the operative time Specimens None Indications This is a 47-year-old male who presents the hospital with marked plan status. In light of his progressive neuro deficit and incapacitating pain is here for the above-mentioned procedure. Description of Procedure Patient was met with identified informed consent obtained. Patient was then taken to the operative suite underwent a patient placed in a prone position on the Griffin table atop the Jacobo frame. All bony prominences well-padded eyes inspected to ensure no external pressure placed upon them. This point the lumbar spine was prepped and draped in normal sterile fashion. Sharp dissection with the assistance of Bovie cautery from down to and exposing the lamina and transverse processes of 3 L4 bilaterally. From caudal to cephalad fashion complete laminectomy L3 partial laminectomy L2 was performed including bilateral medial facetectomies and foraminotomies addressing severe spinal stenosis. Pedicle screws were then placed at L3-L4 bilaterally with assistance of fluoroscopy and the properly sized stefanie placed. By way of a transfemoral approach on the right complete discectomy of L3-L4 was performed. There is marked calcification of the disc as well as evidence of acute fragments. They were removed in their entirety. They remove the entire disc at L3-4 through transfer and approach on the right. The endplates curetted to subcortical bleeding bone and a 13 x 26 mm Spira cage filled with I factor tapped in position. The rods and locked in final position bilaterally. The transverse processes of 3 L4 burred to subcortical bleeding bone. I factor combined with V toss and locally harvested morselized autograft was then placed in the posterior gutters. 15 round ARVIN drain inserted. The incision was then closed with 1 Vicryl the fascia 2-0 Vicryl subcutaneously and 4 Monocryl for final skin closure. Steri-Strip sterile dressings placed. Patient waken taken PACU stable condition. Please note spinal cord monitoring was utilized at the procedure no changes noted. Lastly Kelsea Solorio was present at the entire procedure and while the patient positioning complex portions of the surgery and final skin closure. I attest to the content of the Intraoperative Record and any orders documented therein. Any exceptions are noted below.
[2022-06-29] MEDS: fentaNYL citrate 100 MCG/2 ML VIAL IV PRN ×4 (10:45→11:00)
[2022-06-29] MEDS: HYDROmorphone INJ 2 MG/ML SYR/VIAL IV PRN ×2 (11:10→11:19)
--- NOTE | 2022-06-29 11:14 | Fluoroscopy Report ---
FL lumbar spine 2-3V CLINICAL HISTORY: L3-4 DFI TECHNIQUE: 2 views were obtained with the C-arm in the OR with the above procedure. Total fluoroscopy time was 9.9 seconds. Total skin dose was 17.7 mGy. Comparison: Comparison is made to MRI lumbar spine 06/25/2022 FINDINGS/IMPRESSION: Intraoperative images were obtained of L3-L4 discectomy and fusion. Please correlate with intraoperative fluoroscopy and operative report. ACT 112: Negative or not required by law. Electronically signed by: Geo Monteiro M.D. 06/29/2022 11:12 AM
--- NOTE | 2022-06-29 11:58 | Anesthesiology Progress Note ---
Date of Service June 29, 2022 Anesthesia Post Procedure Vital Signs Vital Signs: Temp Pulse Pulse Pulse Resp BP Pulse Ox 06/29/22 11:35 56 L 15 150/75 H 94 06/29/22 10:55 57 L 16 158/80 H 97 06/29/22 11:45 56 L 16 94 06/29/22 11:25 97.9 F 54 L 17 144/72 H 93 06/29/22 11:15 56 L 18 152/77 H 95 06/29/22 11:05 57 L 12 155/81 H 95 06/29/22 10:45 65 16 165/81 H 95 06/29/22 10:36 97.7 F 76 20 157/84 H 91 06/29/22 07:23 97.9 F 59 L 20 133/62 96 06/29/22 03:29 61 16 97 06/28/22 23:08 60 15 95 06/28/22 21:47 98.1 F 57 L 14 146/69 H 95 06/28/22 18:20 98.4 F 78 18 124/78 99 06/28/22 16:00 97.9 F 57 L 16 116/71 97 06/28/22 12:00 97.5 F L 60 16 130/85 97 O2 Del Method O2 Flow Rate FiO2 06/29/22 11:35 Nasal Cannula 3 06/29/22 10:55 Oxymask 5 06/29/22 11:45 Nasal Cannula 3 06/29/22 11:25 Nasal Cannula 4 06/29/22 11:15 Nasal Cannula 4 06/29/22 11:05 Nasal Cannula 4 06/29/22 10:45 Oxymask 5 06/29/22 10:36 Oxymask 5 06/29/22 07:23 Room Air 06/29/22 03:29 21 06/28/22 23:08 21 06/28/22 21:47 Room Air 06/28/22 18:20 Room Air 06/28/22 16:00 Room Air 06/28/22 12:00 Room Air Pain Intensity Right Leg: Pain Intensity: 10 Back: Pain Intensity: 7 Transfer of Care Handoff Completed per policy Notes Mental Status: alert / awake / arousable and participated in evaluation Patient Amnestic to Procedure: Yes Nausea / Vomiting: adequately controlled Pain: adequately controlled Airway Patency, RR, SpO2: stable & adequate BP & HR: stable & adequate Hydration State: stable & adequate Anesthetic Complications: no major complications apparent and Pt Satisfied with anesthetic care
[2022-06-29] MEDS ORDERED: traMADol HCL 50 MG TABLET PO PRN (12:02)
[2022-06-29] MEDS ORDERED: diphenhydrAMINE Capsule 25 MG CAP PO PRN (12:02)
[2022-06-29] MEDS ORDERED: MAGNESIUM HYDROXIDE SUSP 30 ML UDC PO PRN (12:02)
[2022-06-29] MEDS ORDERED: ACETAMINOPHEN 500 MG TAB PO PRN (12:02)
[2022-06-29] MEDS ORDERED: LORazepam 0.5 MG TAB PO PRN (12:02)
[2022-06-29] MEDS ORDERED: ALUMINUM/MAGNESIUM SUSP 30 ML UDC PO PRN (12:02)
[2022-06-29] MEDS ORDERED: METOCLOPRAMIDE HCL INJ 5 MG/ML 2 ML VIAL IV PRN (12:02)
[2022-06-29] MEDS ORDERED: ACETAMINOPHEN 1,000 MG/100 ML VIAL IV PRN (12:02)
[2022-06-29] MEDS ORDERED: FAMOTIDINE 20 MG TAB PO PRN (12:02)
[2022-06-29] MEDS ORDERED: HYDROmorphone INJ 0.5 MG/0.5 ML SYR IV PRN (12:02)
[2022-06-29] MEDS ORDERED: PROMETHAZINE HCL 12.5 MG in SODIUM CHLORIDE 0.9% 50 ML IV PRN (12:02)
[2022-06-29] MEDS ORDERED: NALOXONE HCL 0.4 MG/1 ML VIAL/CARP IV PRN (12:02)
[2022-06-29] MEDS ORDERED: ONDANSETRON 4 MG OD TAB PO PRN (12:02)
[2022-06-29] MEDS ORDERED: hydrOXYzine HCl 25 MG TAB PO PRN (12:02)
[2022-06-29] MEDS ORDERED: LORazepam 0.5 MG in SYRINGE 0.25 ML IV PRN (12:02)
[2022-06-29] MEDS ORDERED: bisacodyL 10 MG SUPP PR PRN (12:02)
[2022-06-29] MEDS ORDERED: SOD PHOSPHATE/SOD BIPHOSPHATE ENEMA 132 ML BTL PR PRN (12:02)
--- NOTE | 2022-06-29 12:28 | Hospitalist Progress Note ---
Date of Service June 29, 2022 Assessment & Plan (1) Lumbar disc herniation with radiculopathy: Plan: Lumbar spine MRI: Multilevel discogenic degeneration with ligamentum flavum thickening and facet arthrosis as above. Severe central canal stenosis is most pronounced at L3-L4 with multilevel neural foraminal narrowing. POD#0 L3-L4 decompression fusion Activity and wound care orders as per ortho Pain control with bowel regimen PT/OT Monitor H/H for acute blood loss anemia and transfuse blood products PRN EBL 350 cc (2) HTN (hypertension): Plan: Antihypertensives initially held on admission due to borderline low BP and concern for possible acute CVA, which has been ruled out. Home amlodipine, chlorthalidone, lisinopril have since been restarted. Historically has difficult to control hypertension on 6 different antihypertensives as an outpatient. BP mildly elevated today, pain may be contributing, however will resume terazosin Furosemide remains on hold Carvedilol also remains on hold, noted HR 50s-60s. Will continue to hold as well. (3) DM type 2 (diabetes mellitus, type 2): Plan: Hgb A1c 6.4 06/2021, will update with a.m. labs NovoLog per protocol while hospitalized (4) CKD (chronic kidney disease), stage III: Plan: Baseline creatinine ~2.0 Creat stable Continue to monitor, avoid nephrotoxic agents as able (5) LEIGH on CPAP: Plan: Continue CPAP as per home settings (6) Morbid obesity: Plan: Patient told previous provider he already lost 40 pounds with current efforts and is planning to continue to lose weight. BMI 54.9 (7) DVT prophylaxis: Plan: TEDs/SCDs as per spine ortho Admission and Anticipated Discharge Date Admission Date: June 25, 2022 Supervising Physician Co-Signing Physician Notes Patient seen and examined at bedside as a follow-up of lumbar disc herniation with radiculopathy with inability to move RLE/pain along the lateral side of RLE s/p lumbar decompression and fusion 06/[address] Paul. Patient reports improvement in his RLE weakness. Patient reports pain at operative site. Orthospine on board. On examination, now able to move RLE, obesity class III, on room air, NAD, heart lung and abdomen examination fairly WNL. low back w/ clean dressing w/o soakage. ARVIN drain w/ minimal S-S secretion noted. Rest of the examination as above. Watch for acute blood loss anemia postoperatively. Incentive spirometer. I have seen and examined the patient and have discussed the case with the provider above. I agree with the assessment and plan as stated. Subjective Follow-up for medical management, s/p L3-L4 decompression fusion. Patient seen and examined. Just returned from the OR. Patient reports improvement in RLE weakness. Currently reporting incisional back pain. No chest pain or shortness of breath. Denies abdominal pain and nausea. Reports he voided preoperatively, no Tyson catheter in place currently. Review of Systems Review of Systems: ROS per HPI, all other systems reviewed and negative Physical Exam Constitutional: WD/WN, vitals as above + obese; no acute distress Respiratory: normal respiratory effort, lungs clear to auscultation Cardiovascular: Rate/Rhythm: regular rate and regular rhythm Vessels: normal peripheral pulses Extremities: no edema Gastrointestinal (Abdomen): Percussion/Palpation: abdomen soft; abdomen nontender Musculoskeletal: S/p back surgery, 4/5 right dorsiflexion, otherwise strength strong and equal throughout, drain in place draining bloody drainage Skin: no rashes, warm and dry Neurologic: no focal motor deficits Psychiatric: A+Ox3, euthymic affect Results & Data Results & Data ([facility]) Vital Signs (Past 12 Hours) Vital Signs Temp Pulse Pulse Resp BP Pulse Ox O2 Del Method 06/29/22 11:35 56 L 15 150/75 H 94 Nasal Cannula 06/29/22 10:55 57 L 16 158/80 H 97 Oxymask 06/29/22 11:45 56 L 16 94 Nasal Cannula 06/29/22 11:25 36.6 C 54 L 17 144/72 H 93 Nasal Cannula 06/29/22 11:15 56 L 18 152/77 H 95 Nasal Cannula 06/29/22 11:05 57 L 12 155/81 H 95 Nasal Cannula 06/29/22 10:45 65 16 165/81 H 95 Oxymask 06/29/22 10:36 36.5 C 76 20 157/84 H 91 Oxymask 06/29/22 07:23 36.6 C 59 L 20 133/62 96 Room Air 06/29/22 03:29 61 16 97 O2 Flow Rate FiO2 06/29/22 11:35 3 06/29/22 10:55 5 06/29/22 11:45 3 06/29/22 11:25 4 06/29/22 11:15 4 06/29/22 11:05 4 06/29/22 10:45 5 06/29/22 10:36 5 06/29/22 07:23 06/29/22 03:29 21 Laboratory Results [facility] 06/29/22 06:42 Sodium 136 Potassium 3.9 Chloride 99 Carbon Dioxide 31 BUN 25 H Creatinine 1.56 H Glucose 104 H Calcium 9.9
[2022-06-29] MEDS: SODIUM CHLORIDE 0.9% 1000ML 1,000 ML IV SCH ×2 (13:12→22:09)
[2022-06-29] MEDS: oxyCODONE HCL IR 5 MG TAB (IMMEDIATE RELEASE) PO PRN ×2 (13:21→20:01)
[2022-06-29] MEDS: ceFAZolin 2000MG 2,000 MG/15 ML SYR IV SCH (16:36)
[2022-06-29] MEDS: amLODIPine BESYLATE 5 MG TAB PO SCH (18:25)
[2022-06-29] MEDS: TERAZOSIN HCL 1 MG CAP PO SCH (20:02)
[2022-06-29] MEDS: GABAPENTIN 300 MG CAP PO SCH (20:02)
[2022-06-29] MEDS: LIDOCAINE 5% 1 PATCH TD SCH (20:04)
[2022-06-29] MEDS: HYDROmorphone INJ 1 MG/ML SYRINGE IV PRN (22:12)
[2022-06-30] MEDS: ceFAZolin 2000MG 2,000 MG/15 ML SYR IV SCH (00:04)
[2022-06-30] MEDS: POLYETHYLENE (MIRALAX) 17 GM PACK PO SCH ×3 (05:45→18:28)
[2022-06-30] MEDS: SODIUM CHLORIDE 0.9% 1000ML 1,000 ML IV SCH (06:20)
[2022-06-30] MEDS: oxyCODONE HCL IR 5 MG TAB (IMMEDIATE RELEASE) PO PRN ×4 (07:36→20:09)
[2022-06-30 07:40] LABS: Basophils # (auto) 0.04 K/uL (0-0.2); Basophils % (auto) 0.3 %; Eosinophils # (auto) 0.24 K/uL (0-0.50); Eosinophils % (auto) 1.7 %; Hematocrit (blood only) 34.1 % (40.1-51.0); Hemoglobin 11.4 g/dl (14.0-18.0); Immature Granulocytes # (auto) 0.09 K/uL (0.00-0.02); Immature Granulocytes % (auto) 0.6 %; Lymphocytes % (auto) 16.7 %; Mean Corpuscular Hgb Conc 33.4 g/dL (32.0-36.0); Mean Corpuscular Volume 83.8 fL (80.0-100.0); Mean Platelet Volume 8.7 fL (9.4-12.4); Monocytes # (auto) 1.43 K/uL (0.24-0.82); Neutrophils # (auto) 10.13 K/uL (1.4-6.5); Neutrophils % (auto) 70.7 %; Platelet Count 232 K/uL (130-400); RDW Coefficient of Variation 14.4 % (11.5-14.5); RDW Standard Deviation 43.4 fL (36.4-46.3); Red Blood Count 4.07 M/uL (4.63-6.08); White Blood Count 14.33 K/ul (4.8-10.8)
[2022-06-30 07:48] LABS: Estimated Average Glucose 128 mg/dl; Hemoglobin A1C 6.1 % (4.5-5.6)
[2022-06-30 08:00] LABS: BUN Creatinine Ratio 14.3 (10-20); Calcium 9.3 mg/dl (8.5-10.1); Creatinine Clr Calc Pharmacy 107.7 ml/min; Est GFR (African American) 65.8 ml/min; Est GFR (Non-African American) 56.8 ml/min; Potassium 3.8 mmol/L (3.5-5.1)
[2022-06-30] MEDS: CITALOPRAM 40 MG TAB PO SCH (09:34)
[2022-06-30] MEDS: PANTOprazole 40 MG TAB PO SCH (09:34)
[2022-06-30] MEDS: METOCLOPRAMIDE HCL 5 MG TABLET PO SCH ×2 (09:35→16:08)
[2022-06-30] MEDS: dexAMETHasone 6 MG in SYRINGE 0 ML IV SCH (09:38)
[2022-06-30] MEDS: INSULIN ASPART PER UNIT SC SCH ×4 (09:40→21:00)
[2022-06-30] MEDS: CHLORTHALIDONE 25 MG TAB PO SCH (09:42)
[2022-06-30] MEDS: lisinopril 40 MG TAB PO SCH (09:42)
[2022-06-30] MEDS: POTASSIUM CHLORIDE CRTAB 20 MEQ TABCR PO SCH (09:45)
--- NOTE | 2022-06-30 09:50 | Orthopedic Progress Note ---
Date of Service June 30, 2022 Assessment & Plan (1) Lumbar disc herniation with radiculopathy: Plan: This time continue physical therapy have occupational therapy evaluate the patient. He may ultimately be a candidate for rehab. Admission and Anticipated Discharge Date Admission Date: June 25, 2022 Subjective Back pain controlled leg pain improved still marked weakness to the right quadricep. Physical Exam Physical Exam: On exam patient is standing with a walker. Still marked deficits to the right quadricep. Results & Data ([facility]) Vital Signs (Past 12 Hours) Vital Signs Temp Pulse Pulse Resp BP BP Pulse Ox 06/30/22 09:41 85 122/71 06/30/22 07:00 37.0 C 68 16 126/72 97 06/30/22 02:21 65 16 97 06/30/22 03:00 37.2 C 65 14 133/83 97 06/29/22 22:30 20 97 06/29/22 21:51 37 C 88 14 130/80 96 O2 Del Method FiO2 06/30/22 09:41 06/30/22 07:00 Room Air 06/30/22 02:21 21 06/30/22 03:00 BiPAP 06/29/22 22:30 21 06/29/22 21:51 Room Air
--- NOTE | 2022-06-30 12:47 | Hospitalist Progress Note ---
Date of Service June 30, 2022 Assessment & Plan (1) Lumbar disc herniation with radiculopathy: Plan: Lumbar spine MRI: Multilevel discogenic degeneration with ligamentum flavum thickening and facet arthrosis as above. Severe central canal stenosis is most pronounced at L3-L4 with multilevel neural foraminal narrowing. POD#1 L3-L4 decompression fusion Activity and wound care orders as per ortho Pain control with bowel regimen PT/OT Monitor H/H for acute blood loss anemia and transfuse blood products PRN --> hgb stable 11.4 (pre op 12.4) EBL 350 cc, ARVIN 305 cc (2) HTN (hypertension): Plan: Antihypertensives initially held on admission due to borderline low BP and concern for possible acute CVA, which has been ruled out. Home amlodipine, chlorthalidone, lisinopril, terazosin have since been restarted. Historically has difficult to control hypertension on 6 different antihypertensives as an outpatient. Furosemide remains on hold Carvedilol held 2/2 borderline bradycardia, HR now improved but BP with good control at this point, will continue to hold (3) DM type 2 (diabetes mellitus, type 2): Plan: Hgb A1c 6.4 06/2021, now 6.1 NovoLog per protocol while hospitalized (4) CKD (chronic kidney disease), stage III: Plan: Baseline creatinine ~2.0 Creat stable Continue to monitor, avoid nephrotoxic agents as able (5) LEIGH on CPAP: Plan: Continue CPAP as per home settings (6) Morbid obesity: Plan: Patient told previous provider he already lost 40 pounds with current efforts and is planning to continue to lose weight. BMI 54.9 (7) DVT prophylaxis: Plan: TEDs/SCDs as per spine ortho Dispo - May need acute rehab at d/c. Admission and Anticipated Discharge Date Admission Date: June 25, 2022 Supervising Physician Co-Signing Physician Notes Patient seen and examined at bedside as a follow-up of lumbar disc herniation with radiculopathy with inability to move RLE/pain along the lateral side of RLE s/p lumbar decompression and fusion 06/[address] Paul. Patient reports improvement in his RLE weakness. Patient reports pain at operative site. [facility] on board. On examination, now able to move RLE, obesity class III, on room air, NAD, heart lung and abdomen examination fairly WNL. Rest of the examination as above. Watch for acute blood loss anemia postoperatively. Incentive spirometer. I have seen and examined the patient and have discussed the case with the provider above. I agree with the assessment and plan as stated. Subjective Follow-up for medical management, s/p L3-L4 decompression fusion. Patient seen and examined. Sitting up in the chair. Continue with significant RLE weakness, requiring max assist for transfers. Pain well controlled. Denies chest pain and shortness of breath. No lightheadedness or dizziness. Urinating without difficulty, + flatus, no BM Review of Systems Review of Systems: ROS per HPI, all other systems reviewed and negative Physical Exam Constitutional: WD/WN, vitals as above + obese; no acute distress sitting up in the chair Respiratory: normal respiratory effort, lungs clear to auscultation Cardiovascular: Rate/Rhythm: regular rate and regular rhythm Vessels: normal peripheral pulses Extremities: no edema Gastrointestinal (Abdomen): Percussion/Palpation: abdomen soft; abdomen nontender Musculoskeletal: S/p back surgery, 4/5 right dorsiflexion, 5/5 right dorsiextension, strength 3-4/5 RLE Skin: no rashes, warm and dry Neurologic: no focal motor deficits Psychiatric: A+Ox3, euthymic affect Results & Data Results & Data ([facility]) Vital Signs (Past 12 Hours) Vital Signs Temp Pulse Pulse Resp BP BP Pulse Ox 06/30/22 09:41 85 122/71 06/30/22 07:00 37.0 C 68 16 126/72 97 06/30/22 02:21 65 16 97 06/30/22 03:00 37.2 C 65 14 133/83 97 O2 Del Method FiO2 06/30/22 09:41 06/30/22 07:00 Room Air 06/30/22 02:21 21 06/30/22 03:00 BiPAP Laboratory Results Short CBC 06/30/22 Range/Units 07:24 WBC 14.33 H (4.8-10.8) K/ul Hgb 11.4 L (14.0-18.0) g/dl Hct 34.1 L (40.1-51.0) % Plt Count 232 (130-400) K/uL BMP 06/30/22 07:24 Sodium 137 Potassium 3.8 Chloride 102 Carbon Dioxide 26 BUN 21 Creatinine 1.47 H Glucose 116 H Calcium 9.3
[2022-06-30] MEDS: amLODIPine BESYLATE 5 MG TAB PO SCH (21:45)
[2022-06-30] MEDS: DOCUSATE SODIUM/SENNA 50/8.6MG TAB PO SCH (21:46)
[2022-06-30] MEDS: LIDOCAINE 5% 1 PATCH TD SCH (21:47)
[2022-06-30] MEDS: TERAZOSIN HCL 1 MG CAP PO SCH (21:47)
[2022-06-30] MEDS: GABAPENTIN 300 MG CAP PO SCH (21:47)
[2022-06-30] MEDS: HYDROmorphone INJ 1 MG/ML SYRINGE IV PRN (21:48)
[2022-07-01] MEDS: POLYETHYLENE (MIRALAX) 17 GM PACK PO SCH ×5 (00:45→21:38)
[2022-07-01] MEDS: oxyCODONE HCL IR 5 MG TAB (IMMEDIATE RELEASE) PO PRN ×4 (05:47→20:45)
[2022-07-01 06:33] LABS: Hematocrit (blood only) 32.7 % (40.1-51.0); Hemoglobin 10.6 g/dl (14.0-18.0); Mean Corpuscular Hgb Conc 32.4 g/dL (32.0-36.0); Mean Corpuscular Volume 86.5 fL (80.0-100.0); Mean Platelet Volume 9.1 fL (9.4-12.4); Platelet Count 211 K/uL (130-400); RDW Coefficient of Variation 14.6 % (11.5-14.5); Red Blood Count 3.78 M/uL (4.63-6.08); White Blood Count 14.62 K/ul (4.8-10.8)
[2022-07-01] MEDS: PANTOprazole 40 MG TAB PO SCH (08:16)
[2022-07-01] MEDS: CHLORTHALIDONE 25 MG TAB PO SCH (08:16)
[2022-07-01] MEDS: METOCLOPRAMIDE HCL 5 MG TABLET PO SCH ×2 (08:16→17:33)
[2022-07-01] MEDS: CITALOPRAM 40 MG TAB PO SCH (08:16)
[2022-07-01] MEDS: lisinopril 40 MG TAB PO SCH (08:16)
[2022-07-01] MEDS: dexAMETHasone 6 MG in SYRINGE 0 ML IV SCH (08:16)
[2022-07-01] MEDS: POTASSIUM CHLORIDE CRTAB 20 MEQ TABCR PO SCH (08:19)
--- NOTE | 2022-07-01 08:22 | Orthopedic Progress Note ---
Date of Service July 01, 2022 Assessment & Plan (1) Lumbar disc herniation with radiculopathy: Plan: This time we will continue physical therapy. We will change his dressing today remove his drain so he may shower. We will continue physical therapy occupational therapy hopefully discharge to rehab tomorrow. Admission and Anticipated Discharge Date Admission Date: June 25, 2022 Subjective Back pain is controlled right leg pain markedly improved. Still significant strength deficit to the right quadricep. Physical Exam Physical Exam: On exam patient is currently in bed. He is comfortable. Does have marked deficits to the right quadricep. Plantar flexion dorsiflexion intact. Results & Data ([facility]) Vital Signs (Past 12 Hours) Vital Signs Temp Pulse Pulse Resp BP Pulse Ox O2 Del Method 07/01/22 06:14 36.6 C 73 12 131/75 95 CPAP 07/01/22 04:43 70 24 92 06/30/22 23:36 72 25 H 92 06/30/22 21:35 37.3 C 70 14 108/64 96 Room Air FiO2 07/01/22 06:14 07/01/22 04:43 21 06/30/22 23:36 21 06/30/22 21:35
[2022-07-01] MEDS: INSULIN ASPART PER UNIT SC SCH ×4 (09:13→21:11)
--- NOTE | 2022-07-01 13:57 | Hospitalist Progress Note ---
Date of Service July 01, 2022 Assessment & Plan (1) CKD (chronic kidney disease), stage III: (2) Morbid obesity: (3) Lumbar disc herniation with radiculopathy: (4) Right leg weakness: (5) DM type 2 (diabetes mellitus, type 2): (6) Anxiety: (7) HTN (hypertension): (8) LEIGH on CPAP: Plan Lumbar disc herniation with radiculopathy RLE weakness Lumbar spine MRI: Multilevel discogenic degeneration with ligamentum flavum thickening and facet arthrosis as above. Severe central canal stenosis is most pronounced at L3-L4 with multilevel neural foraminal narrowing. POD#2 L3-L4 decompression fusion Activity and wound care orders as per ortho Pain control with bowel regimen Fall precautions and assist given RLE weakness PT/OT Monitor H/H for acute blood loss anemia and transfuse blood products PRN --> hgb stable (10.6 (11.4 yesterday) HTN (hypertension) Antihypertensives initially held on admission due to borderline low BP and concern for possible acute CVA, which has been ruled out Historically has difficult to control hypertension on 6 different antihypertensives as an outpatient Home amlodipine, lisinopril, terazosin have since been resumed Furosemide and chlorthalidone remain on hold Carvedilol held 2/2 borderline bradycardia, HR now improved but BP with good control at this point - continue to hold DM type 2 (diabetes mellitus, type 2) Hgb A1c 6.4 06/2021, now 6.1 NovoLog per protocol while hospitalized CKD (chronic kidney disease), stage III Baseline creatinine ~2.0 Creat stable Continue to monitor, avoid nephrotoxic agents as able LEIGH on CPAP Continue CPAP as per home settings Morbid obesity Patient told previous provider he already lost 40 pounds with current efforts and is planning to continue to lose weight. BMI 54.9 Dispo: per primary service Patient seen in collaboration with Dr. Arshad. Please see addendum. Thank you for this consultation. We will follow the patient with you during their hospital stay. You can reach a member of the [facility] Hospitalist Team 09/05 via [place] Text. Admission and Anticipated Discharge Date Admission Date: June 25, 2022 Supervising Physician Co-Signing Physician Notes Patient seen and examined at bedside as a follow-up of lumbar disc herniation with radiculopathy with inability to move RLE/pain along the lateral side of RLE s/p lumbar decompression and fusion 06/[address] Paul. On examination, now able to move RLE, obesity class III, on room air, NAD, heart lung and abdomen examination fairly WNL. Rest of the examination as above. Watch for acute blood loss anemia postoperatively. Incentive spirometer. Patient for placement at acute rehab, potentially 07/02/2022. I have seen and examined the patient and have discussed the case with the provider above. I agree with the assessment and plan as stated. Subjective Patient seen and examined in 318 for medical management, status post L3-L4 decom pression and fusion. Sitting at side of bed having just completed physical therapy. Ambulating well in the halls. Has significant right lower extremity weakness, discussed this with Dr. Paul today. Does have less neuropathic pain in bilateral lower extremity since surgery. Urinating without issue. Passing flatus but no bowel movement yet. Continue bowel regimen. Denies any fever, chills, headache, chest pain, shortness of breath, nausea, vomiting, abdominal pain. Review of Systems Review of Systems: At least ten systems reviewed and negative except as noted in the HPI. Physical Exam Physical Exam: Gen: WD/WN, NAD, sitting on side of bed, obese, A&Ox3 HEENT: Normocephalic, atraumatic, conjunctivae moist, sclerae anicteric, mucous membranes moist Lung: Clear to Auscultation bilaterally, no wheezes/rales/rhonchi Heart: Regular rate, regular rhythm, no murmurs, rubs, or gallops Abdomen: Soft, NT, ND +BS x 4 Extremities: +Spinal dressing c/d/i. + ARVIN drain visualized. No edema Skin: Warm, no rash Results & Data Results & Data ([facility]) Vital Signs (Past 12 Hours) Vital Signs Temp Pulse Pulse Resp BP Pulse Ox O2 Del Method 07/01/22 06:14 36.6 C 73 12 131/75 95 CPAP 07/01/22 04:43 70 24 92 FiO2 07/01/22 06:14 07/01/22 04:43 21 Laboratory Results Short CBC 07/01/22 Range/Units 05:56 WBC 14.62 H (4.8-10.8) K/ul Hgb 10.6 L (14.0-18.0) g/dl Hct 32.7 L (40.1-51.0) % Plt Count 211 (130-400) K/uL Diagnostic Findings Chest X-Ray 06/24/22 12:26 XR chest 2V PA/lateral CLINICAL HISTORY: blood clot TECHNIQUE: 2 views of the chest were obtained. Comparison: Comparison is made to chest radiograph 11/26/2018 FINDINGS: Exam is limited by underpenetration. The cardiomediastinal silhouette is mildly enlarged, stable. The lungs are clear. No evidence of pleural effusion or pneumothorax. IMPRESSION: No acute chest disease. ACT 112: Negative or not required by law. Electronically signed by: Geo Monteiro M.D. 06/24/2022 1:23 PM Venous Doppler Study 06/24/22 15:51 US venous doppler LE RT CLINICAL HISTORY: sent by PCP, pain TECHNIQUE: Right lower extremity real-time compression venous ultrasound with Color Doppler imaging. Utilizing real-time ultrasonic imaging multiple real time high-resolution ultrasonic images with compression and noncompression maneuvers of the deep venous system in addition to color doppler imaging were performed from the common femoral vein through the proximal calf veins. COMPARISON: None available at the time of this dictation. FINDINGS: Currently there is normal compressibility of the deep venous system from the common femoral vein through the proximal calf veins. No superficial venous thrombosis is identified. Impression: No evidence of deep venous thrombus. ACT 112: Negative or not required by law. Electronically signed by: Geo Monteiro M.D. 06/24/2022 6:[address] 06/24/22 15:53 CT SCAN OF THE BRAIN WITHOUT IV CONTRAST CLINICAL HISTORY: Right lower extremity weakness. COMPARISON STUDY: CT of the brain dated 11/26/2018. TECHNIQUE: Unenhanced axial CT scan of the brain is performed from the vertex to the skull base. A dose lowering technique was utilized adhering to the principles of ALARA. CT DOSE: 691.05 mGy.cm FINDINGS: Brain parenchyma: The brain parenchyma is normal in appearance. There is no hemorrhage, mass effect, or evidence of acute territorial ischemia by CT criteria. Lei-white matter differentiation is preserved. No extra-axial fluid collection is seen. Ventricles, sulci, cisterns: Normal in configuration. Intracranial vasculature: The visualized intracranial vasculature at the skull base is normal in appearance. Calvarium: Unremarkable. Sinuses and mastoids: The paranasal sinuses are clear. The mastoid air cells are well pneumatized. Orbits: The bony orbits are grossly intact. IMPRESSION: There is no hemorrhage, mass effect, or evidence of acute territorial ischemia by CT criteria. ACT 112: Negative or not required by law. Electronically signed by: Kevin Kessler M.D. 06/24/2022 4:24 PM Tibia/Fibula X-Ray 06/25/22 00:06 RIGHT TIBIA AND FIBULA 2 VIEWS CLINICAL HISTORY: Right leg pain. FINDINGS: AP and lateral views of the right tibia and fibula are obtained. No prior studies are available for comparison at the time of dictation. The skeletal structures are well-mineralized. There is no radiographic evidence of right tibial or fibular fracture. The knee and ankle joints appear maintained. Mild soft tissue swelling is seen in the calf. Soft tissue calcifications are noted within the medial calf musculature. Phleboliths are present in the pretibial tissues. There are tiny dorsal and plantar calcaneal enthesophytes. An os trigonum is incidentally noted. IMPRESSION: Soft tissue swelling with no acute bony abnormality identified. Electronically signed by: Kevin Kessler M.D. 06/25/2022 8:26 AM Brain MRI 06/25/22 00:07 MRI OF THE BRAIN WITHOUT IV CONTRAST CLINICAL HISTORY: Right lower extremity weakness. COMPARISON STUDY: CT of the brain dated 06/24/2022. TECHNIQUE: MRI of the brain was performed utilizing various T1 and T2-weighted sequences in the axial, sagittal, and coronal planes. IV contrast was not administered for this examination. FINDINGS: Brain parenchyma: The brain parenchyma is normal in appearance. There is no hemorrhage or mass effect. There is no restricted diffusion to suggest acute ischemia. Lei-white matter differentiation is preserved. No extra-axial fluid collection is seen. The cerebellar tonsils are normal in configuration. Ventricles, sulci, and cisterns: Normal in configuration. Pituitary and sella: Unremarkable. Intracranial vasculature: Normal flow voids are maintained at the skull base. Orbits: The bony orbits are grossly intact. Orbital contents are normal in appearance. Sinuses and mastoids: There is trace mucosal thickening in the right sphenoid sinus. The remaining paranasal sinuses are clear, as are the mastoid air cells. Calvarium: Unremarkable. Cervical cord: Partially visualized cervical spinal cord is normal in morphology and signal intensity. IMPRESSION: No acute intracranial abnormality. ACT 112: Negative or not required by law. Electronically signed by: Kevin Kessler M.D. 06/25/2022 7:02 AM Head MRA 06/25/22 00:07 MRA OF THE INTRACRANIAL CIRCULATION WITHOUT CONTRAST CLINICAL HISTORY: Right lower extremity weakness. COMPARISON STUDY: Head CT June 24, 2022. TECHNIQUE: Utilizing a 1.5 Carmel magnet and 3-D [id number] technique, unenhanced MRA of the intracranial circulation was obtained. FINDINGS: Please note that the MRI of the brain will be reported separately. The bilateral M1, M2, A1 and A2 segments are patent. There is no intracranial aneurysm. There is no central vessel occlusion. No stenosis within the intracranial vessels is identified. Posterior circulation is intact. IMPRESSION: Unremarkable MRA of the head. ACT 112: Negative or not required by law. Electronically signed by: Zaid Parekh M.D. 06/25/2022 8:29 AM Lumbar Spine MRI 06/25/22 16:20 MR LUMBAR SPINE WO CON CLINICAL HISTORY: 47 years-old Male with RLE numbness, weakness, pain. Chronic low back pain with right lower extremity numbness and weakness. COMPARISON: CT abdomen and pelvis 12/14/2019 TECHNIQUE: Multiplanar, multisequence MRI of the lumbar spine was performed without intravenous contrast. FINDINGS: Conus medullaris terminates at the L1 level. Signal within the imaged thoracic spinal cord is within normal limits. No acute fracture, subluxation, endplate erosion or marrow replacing process. Mild Modic type I endplate degeneration at L4-L5. Study is limited secondary to patient body habitus. The study is also motion degraded. Discogenic degeneration with facet arthrosis described below. T12-L1: Mild spondylitic spurring with small circumferential annular disc bulge and mild facet arthrosis. No central canal or neural foraminal stenosis. L1-L2: Mild intervertebral disc space narrowing with spondylitic spurring and small circumferential annular disc bulge with moderate facet arthrosis. The central canal and left neural foramen are patent. Mild right neural foraminal narrowing. L2-L3: Moderate intervertebral disc space narrowing and spondylitic spurring with moderate to large circumferential annular disc bulge. Additionally, there is a 1.3 cm central disc protrusion. Ligamentum flavum thickening with moderate to severe facet arthrosis. Mild associated epidural lipomatosis. Conglomerate findings result in severe central canal stenosis, AP dimension of the thecal sac measuring 6 mm. Mild bilateral neural foraminal narrowing. L3-L4: Moderate intervertebral disc space narrowing and spondylitic spurring with moderate-sized circumferential annular disc bulge. Ligamentum flavum thickening with severe facet arthrosis and epidural lipomatosis. Central disc extrusion measures 0.9 x 0.7 cm in transverse and AP dimension extending for a craniocaudal length of 2.1 cm. There is severe central canal stenosis with severe narrowing of the lateral recesses. AP dimension of the thecal sac measures approximately 1 mm. Mild to moderate bilateral neural foraminal narrowing. L4-L5: Moderate intervertebral disc space narrowing and spondylitic spurring with moderate-sized circumferential annular disc bulge. Ligamentum flavum thickening with severe facet arthrosis and mild epidural lipomatosis. Moderate to severe central canal stenosis, AP dimension of the thecal sac measuring approximately 6 mm. There is at least moderate narrowing of the bilateral lateral recesses. Moderate bilateral foraminal narrowing. L5-S1: Mild to moderate intervertebral disc space narrowing with spondylitic spurring and circumferential annular disc bulge. Central disc extrusion measures up to 1.2 cm in craniocaudal dimension. Ligamentum flavum thickening with severe facet arthrosis. There is abutment without displacement of the bilateral S1 nerve roots. There is mild narrowing of the lateral recesses. Mild central canal stenosis with AP dimension of the thecal sac measuring approximately 10 mm. Mild to moderate right with severe left neural foraminal narrowing. IMPRESSION: 1. Limited study as above. 2. Multilevel discogenic degeneration with ligamentum flavum thickening and facet arthrosis as above. 3. Severe central canal stenosis is most pronounced at L3-L4 with multilevel neural foraminal narrowing. 4. No acute fracture. 5. Mild Modic type I endplate degeneration at L4-L5. ACT 112: Negative or not required by law. The above report was generated using voice recognition software. It may contain grammatical, syntax or spelling errors. Dictated: 06/25/2022 5:36 PM Transcribed: 06/25/2022 6:32 PM Elis [id number] [facility] Electronically signed by: Sheldon Sawyer M.D. 06/25/2022 6:39 PM Lumbar Spine X-Ray 06/29/22 00:00 FL lumbar spine 2-3V CLINICAL HISTORY: L3-4 DFI TECHNIQUE: 2 views were obtained with the C-arm in the OR with the above procedure. Total fluoroscopy time was 9.9 seconds. Total skin dose was 17.7 mGy. Comparison: Comparison is made to MRI lumbar spine 06/25/2022 FINDINGS/IMPRESSION: Intraoperative images were obtained of L3-L4 discectomy and fusion. Please correlate with intraoperative fluoroscopy and operative report. ACT 112: Negative or not required by law. Electronically signed by: Geo Monteiro M.D. 06/29/2022 11:12 AM
[2022-07-01] MEDS: amLODIPine BESYLATE 5 MG TAB PO SCH (16:30)
[2022-07-01] MEDS: LIDOCAINE 5% 1 PATCH TD SCH (21:02)
[2022-07-01] MEDS: DOCUSATE SODIUM/SENNA 50/8.6MG TAB PO SCH (21:02)
[2022-07-01] MEDS: GABAPENTIN 300 MG CAP PO SCH (21:37)
[2022-07-01] MEDS: TERAZOSIN HCL 1 MG CAP PO SCH (21:37)
[2022-07-02] MEDS: oxyCODONE HCL IR 5 MG TAB (IMMEDIATE RELEASE) PO PRN ×2 (04:11→09:41)
[2022-07-02] MEDS: POLYETHYLENE (MIRALAX) 17 GM PACK PO SCH ×2 (06:00→13:32)
[2022-07-02 06:57] LABS: Hematocrit (blood only) 32.3 % (40.1-51.0); Hemoglobin 10.5 g/dl (14.0-18.0); Mean Corpuscular Hemoglobin 27.9 pg (25.0-34.0); Mean Corpuscular Hgb Conc 32.5 g/dL (32.0-36.0); Mean Corpuscular Volume 85.7 fL (80.0-100.0); Mean Platelet Volume 9.3 fL (9.4-12.4); Platelet Count 218 K/uL (130-400); RDW Coefficient of Variation 14.4 % (11.5-14.5); RDW Standard Deviation 44.7 fL (36.4-46.3); Red Blood Count 3.77 M/uL (4.63-6.08); White Blood Count 13.47 K/ul (4.8-10.8)
[2022-07-02 07:23] LABS: Calcium 9.5 mg/dl (8.5-10.1); Creatinine Clr Calc Pharmacy 109.2 ml/min; Est GFR (African American) 66.9 ml/min; Est GFR (Non-African American) 57.7 ml/min; Potassium 3.7 mmol/L (3.5-5.1)
[2022-07-02] MEDS: lisinopril 40 MG TAB PO SCH (08:33)
[2022-07-02] MEDS: CHLORTHALIDONE 25 MG TAB PO SCH (08:37)
[2022-07-02] MEDS: CITALOPRAM 40 MG TAB PO SCH (08:37)
[2022-07-02] MEDS: METOCLOPRAMIDE HCL 5 MG TABLET PO SCH (08:39)
[2022-07-02] MEDS: dexAMETHasone 6 MG in SYRINGE 0 ML IV SCH (08:40)
[2022-07-02] MEDS: PANTOprazole 40 MG TAB PO SCH (08:40)
[2022-07-02] MEDS: POTASSIUM CHLORIDE CRTAB 20 MEQ TABCR PO SCH (08:41)
[2022-07-02] MEDS: INSULIN ASPART PER UNIT SC SCH ×2 (08:55→13:37)
--- NOTE | 2022-07-02 11:00 | Hospitalist Progress Note ---
Date of Service July 02, 2022 Assessment & Plan (1) CKD (chronic kidney disease), stage III: (2) Morbid obesity: (3) Lumbar disc herniation with radiculopathy: (4) Right leg weakness: (5) DM type 2 (diabetes mellitus, type 2): (6) Anxiety: (7) HTN (hypertension): (8) LEIGH on CPAP: Plan Lumbar disc herniation with radiculopathy RLE weakness Lumbar spine MRI: Multilevel discogenic degeneration with ligamentum flavum thickening and facet arthrosis as above. Severe central canal stenosis is most pronounced at L3-L4 with multilevel neural foraminal narrowing. POD#3 L3-L4 decompression fusion Activity and wound care orders as per ortho Pain control with bowel regimen Fall precautions and assist given RLE weakness PT/OT Monitor H/H for acute blood loss anemia and transfuse blood products PRN --> hgb stable at 10.5 today (10.6 yesterday) Constipation Passing gas, continued on bowel regimen per Dr. Paul. Enema ordered today No abdominal distention, nausea or vomiting suggestive of bowel obstruction Continue to monitor, obtain KUB if indicated HTN (hypertension) Antihypertensives initially held on admission due to borderline low BP and concern for possible acute CVA, which has been ruled out Historically has difficult to control hypertension on 6 different antihypertensives as an outpatient Home amlodipine, lisinopril, terazosin have since been resumed Furosemide and chlorthalidone remain on hold Carvedilol held 2/2 borderline bradycardia, HR now improved but BP with good control at this point - continue to hold DM type 2 (diabetes mellitus, type 2) Hgb A1c 6.4 06/2021, now 6.1 NovoLog per protocol while hospitalized CKD (chronic kidney disease), stage III Baseline creatinine ~2.0 Creat stable Continue to monitor, avoid nephrotoxic agents as able LEIGH on CPAP Continue CPAP as per home settings Morbid obesity Patient told previous provider he already lost 40 pounds with current efforts and is planning to continue to lose weight. BMI 54.9 Dispo: Plan for discharge to rehab per primary service. Patient seen in collaboration with Dr. Arshad. Please see addendum. Thank you for this consultation. We will follow the patient with you during their hospital stay. You can reach a member of the [place] Hospitalist Team 09/05 via [place] Text. Admission and Anticipated Discharge Date Admission Date: June 25, 2022 Supervising Physician Co-Signing Physician Notes Patient seen and examined at bedside as a follow-up of lumbar disc herniation with radiculopathy with inability to move RLE/pain along the lateral side of RLE s/p lumbar decompression and fusion 06/[address] Paul. On examination, now able to move RLE, obesity class III, on room air, NAD, heart lung and abdomen examination fairly WNL. Rest of the examination as above. Watch for acute blood loss anemia postoperatively. Incentive spirometer. Patient for placement at acute rehab, accepted pending ortho clearance for discharge. I have seen and examined the patient and have discussed the case with the provider above. I agree with the assessment and plan as stated. Subjective Patient seen and examined in 318 for medical management, status post L3-L4 decompression and fusion. Sitting at side of bed having just completed physical therapy. Ambulating well in the halls. Has significant right lower extremity weakness but is able to transfer with assistance. Feels like balance is improving. Denies any neuropathic pain in bilateral lower extremities. Urinating without issue, passing flatus but no bowel movement yet despite aggressive regimen. Denies any abdominal distention, nausea or vomiting. No fever, chills, headache, chest pain, shortness of breath or dysuria. Physical Exam Physical Exam: Gen: WD/WN, NAD, sitting on side of bed, obese, A&Ox3 HEENT: Normocephalic, atraumatic, conjunctivae moist, sclerae anicteric, mucous membranes moist Lung: Clear to Auscultation bilaterally, no wheezes/rales/rhonchi Heart: Regular rate, regular rhythm, no murmurs, rubs, or gallops Abdomen: Soft, NT, ND + hypoactive bowel sounds Extremities: +Spinal dressing c/d/i. + ARVIN drain visualized. No edema Skin: Warm, no rash Results & Data Results & Data ([facility]) Vital Signs (Past 12 Hours) Vital Signs Temp Pulse Pulse Resp BP Pulse Ox O2 Del Method 07/02/22 08:14 36.3 C L 74 16 115/65 93 Room Air 07/02/22 03:34 66 23 95 FiO2 07/02/22 08:14 07/02/22 03:34 21 Laboratory Results Short CBC 07/02/22 Range/Units 06:34 WBC 13.47 H (4.8-10.8) K/ul Hgb 10.5 L (14.0-18.0) g/dl Hct 32.3 L (40.1-51.0) % Plt Count 218 (130-400) K/uL [facility] 07/02/22 06:34 Sodium 136 Potassium 3.7 Chloride 100 Carbon Dioxide 31 BUN 29 H Creatinine 1.45 H Glucose 109 H Calcium 9.5 Diagnostic Findings Chest X-Ray 06/24/22 12:26 XR chest 2V PA/lateral CLINICAL HISTORY: blood clot TECHNIQUE: 2 views of the chest were obtained. Comparison: Comparison is made to chest radiograph 11/26/2018 FINDINGS: Exam is limited by underpenetration. The cardiomediastinal silhouette is mildly enlarged, stable. The lungs are clear. No evidence of pleural effusion or pneumothorax. IMPRESSION: No acute chest disease. ACT 112: Negative or not required by law. Electronically signed by: Geo Monteiro M.D. 06/24/2022 1:23 PM Venous Doppler Study 06/24/22 15:51 US venous doppler LE RT CLINICAL HISTORY: sent by PCP, pain TECHNIQUE: Right lower extremity real-time compression venous ultrasound with Color Doppler imaging. Utilizing real-time ultrasonic imaging multiple real time high-resolution ultrasonic images with compression and noncompression maneuvers of the deep venous system in addition to color doppler imaging were performed from the common femoral vein through the proximal calf veins. COMPARISON: None available at the time of this dictation. FINDINGS: Currently there is normal compressibility of the deep venous system from the common femoral vein through the proximal calf veins. No superficial venous thrombosis is identified. Impression: No evidence of deep venous thrombus. ACT 112: Negative or not required by law. Electronically signed by: Geo Monteiro M.D. 06/24/2022 6:[address] 06/24/22 15:53 CT SCAN OF THE BRAIN WITHOUT IV CONTRAST CLINICAL HISTORY: Right lower extremity weakness. COMPARISON STUDY: CT of the brain dated 11/26/2018. TECHNIQUE: Unenhanced axial CT scan of the brain is performed from the vertex to the skull base. A dose lowering technique was utilized adhering to the principles of ALARA. CT DOSE: 691.05 mGy.cm FINDINGS: Brain parenchyma: The brain parenchyma is normal in appearance. There is no hemorrhage, mass effect, or evidence of acute territorial ischemia by CT criteria. Lei-white matter differentiation is preserved. No extra-axial fluid collection is seen. Ventricles, sulci, cisterns: Normal in configuration. Intracranial vasculature: The visualized intracranial vasculature at the skull base is normal in appearance. Calvarium: Unremarkable. Sinuses and mastoids: The paranasal sinuses are clear. The mastoid air cells are well pneumatized. Orbits: The bony orbits are grossly intact. IMPRESSION: There is no hemorrhage, mass effect, or evidence of acute territorial ischemia by CT criteria. ACT 112: Negative or not required by law. Electronically signed by: Kevin Kessler M.D. 06/24/2022 4:24 PM Tibia/Fibula X-Ray 06/25/22 00:06 RIGHT TIBIA AND FIBULA 2 VIEWS CLINICAL HISTORY: Right leg pain. FINDINGS: AP and lateral views of the right tibia and fibula are obtained. No prior studies are available for comparison at the time of dictation. The skeletal structures are well-mineralized. There is no radiographic evidence of right tibial or fibular fracture. The knee and ankle joints appear maintained. Mild soft tissue swelling is seen in the calf. Soft tissue calcifications are noted within the medial calf musculature. Phleboliths are present in the pretibial tissues. There are tiny dorsal and plantar calcaneal enthesophytes. An os trigonum is incidentally noted. IMPRESSION: Soft tissue swelling with no acute bony abnormality identified. Electronically signed by: Kevin Kessler M.D. 06/25/2022 8:26 AM Brain MRI 06/25/22 00:07 MRI OF THE BRAIN WITHOUT IV CONTRAST CLINICAL HISTORY: Right lower extremity weakness. COMPARISON STUDY: CT of the brain dated 06/24/2022. TECHNIQUE: MRI of the brain was performed utilizing various T1 and T2-weighted sequences in the axial, sagittal, and coronal planes. IV contrast was not administered for this examination. FINDINGS: Brain parenchyma: The brain parenchyma is normal in appearance. There is no hemorrhage or mass effect. There is no restricted diffusion to suggest acute ischemia. Lei-white matter differentiation is preserved. No extra-axial fluid collection is seen. The cerebellar tonsils are normal in configuration. Ventricles, sulci, and cisterns: Normal in configuration. Pituitary and sella: Unremarkable. Intracranial vasculature: Normal flow voids are maintained at the skull base. Orbits: The bony orbits are grossly intact. Orbital contents are normal in appearance. Sinuses and mastoids: There is trace mucosal thickening in the right sphenoid sinus. The remaining paranasal sinuses are clear, as are the mastoid air cells. Calvarium: Unremarkable. Cervical cord: Partially visualized cervical spinal cord is normal in morphology and signal intensity. IMPRESSION: No acute intracranial abnormality. ACT 112: Negative or not required by law. Electronically signed by: Kevin Kessler M.D. 06/25/2022 7:02 AM Head MRA 06/25/22 00:07 MRA OF THE INTRACRANIAL CIRCULATION WITHOUT CONTRAST CLINICAL HISTORY: Right lower extremity weakness. COMPARISON STUDY: Head CT June 24, 2022. TECHNIQUE: Utilizing a 1.5 Carmel magnet and 3-D [id number] technique, unenhanced MRA of the intracranial circulation was obtained. FINDINGS: Please note that the MRI of the brain will be reported separately. The bilateral M1, M2, A1 and A2 segments are patent. There is no intracranial aneurysm. There is no central vessel occlusion. No stenosis within the intracranial vessels is identified. Posterior circulation is intact. IMPRESSION: Unremarkable MRA of the head. ACT 112: Negative or not required by law. Electronically signed by: Zaid Parekh M.D. 06/25/2022 8:29 AM Lumbar Spine MRI 06/25/22 16:20 MR LUMBAR SPINE WO CON CLINICAL HISTORY: 47 years-old Male with RLE numbness, weakness, pain. Chronic low back pain with right lower extremity numbness and weakness. COMPARISON: CT abdomen and pelvis 12/14/2019 TECHNIQUE: Multiplanar, multisequence MRI of the lumbar spine was performed without intravenous contrast. FINDINGS: Conus medullaris terminates at the L1 level. Signal within the imaged thoracic spinal cord is within normal limits. No acute fracture, subluxation, endplate erosion or marrow replacing process. Mild Modic type I endplate degeneration at L4-L5. Study is limited secondary to patient body habitus. The study is also motion degraded. Discogenic degeneration with facet arthrosis described below. T12-L1: Mild spondylitic spurring with small circumferential annular disc bulge and mild facet arthrosis. No central canal or neural foraminal stenosis. L1-L2: Mild intervertebral disc space narrowing with spondylitic spurring and small circumferential annular disc bulge with moderate facet arthrosis. The central canal and left neural foramen are patent. Mild right neural foraminal narrowing. L2-L3: Moderate intervertebral disc space narrowing and spondylitic spurring with moderate to large circumferential annular disc bulge. Additionally, there is a 1.3 cm central disc protrusion. Ligamentum flavum thickening with moderate to severe facet arthrosis. Mild associated epidural lipomatosis. Conglomerate findings result in severe central canal stenosis, AP dimension of the thecal sac measuring 6 mm. Mild bilateral neural foraminal narrowing. L3-L4: Moderate intervertebral disc space narrowing and spondylitic spurring with moderate-sized circumferential annular disc bulge. Ligamentum flavum thickening with severe facet arthrosis and epidural lipomatosis. Central disc extrusion measures 0.9 x 0.7 cm in transverse and AP dimension extending for a craniocaudal length of 2.1 cm. There is severe central canal stenosis with severe narrowing of the lateral recesses. AP dimension of the thecal sac measures approximately 1 mm. Mild to moderate bilateral neural foraminal narrowing. L4-L5: Moderate intervertebral disc space narrowing and spondylitic spurring with moderate-sized circumferential annular disc bulge. Ligamentum flavum thickening with severe facet arthrosis and mild epidural lipomatosis. Moderate to severe central canal stenosis, AP dimension of the thecal sac measuring approximately 6 mm. There is at least moderate narrowing of the bilateral lateral recesses. Moderate bilateral foraminal narrowing. L5-S1: Mild to moderate intervertebral disc space narrowing with spondylitic spurring and circumferential annular disc bulge. Central disc extrusion measures up to 1.2 cm in craniocaudal dimension. Ligamentum flavum thickening with severe facet arthrosis. There is abutment without displacement of the bilateral S1 nerve roots. There is mild narrowing of the lateral recesses. Mild central canal stenosis with AP dimension of the thecal sac measuring approximately 10 mm. Mild to moderate right with severe left neural foraminal narrowing. IMPRESSION: 1. Limited study as above. 2. Multilevel discogenic degeneration with ligamentum flavum thickening and facet arthrosis as above. 3. Severe central canal stenosis is most pronounced at L3-L4 with multilevel neural foraminal narrowing. 4. No acute fracture. 5. Mild Modic type I endplate degeneration at L4-L5. ACT 112: Negative or not required by law. The above report was generated using voice recognition software. It may contain grammatical, syntax or spelling errors. Dictated: 06/25/2022 5:36 PM Transcribed: 06/25/2022 6:32 PM Elis [id number] [facility] Electronically signed by: Sheldon Sawyer M.D. 06/25/2022 6:39 PM Lumbar Spine X-Ray 06/29/22 00:00 FL lumbar spine 2-3V CLINICAL HISTORY: L3-4 DFI TECHNIQUE: 2 views were obtained with the C-arm in the OR with the above procedure. Total fluoroscopy time was 9.9 seconds. Total skin dose was 17.7 mGy. Comparison: Comparison is made to MRI lumbar spine 06/25/2022 FINDINGS/IMPRESSION: Intraoperative images were obtained of L3-L4 discectomy and fusion. Please correlate with intraoperative fluoroscopy and operative report. ACT 112: Negative or not required by law. Electronically signed by: Geo Monteiro M.D. 06/29/2022 11:12 AM
--- NOTE | 2022-07-02 11:53 | Orthopedic Progress Note ---
Date of Service July 02, 2022 Assessment & Plan (1) Lumbar disc herniation with radiculopathy: Plan: This time he is cleared for discharge to rehab. We will see him back in our office approximately 2 weeks to assess his progress and obtain x-rays. Admission and Anticipated Discharge Date Admission Date: June 25, 2022 Subjective Back pain controlled leg pain improved still very weak in the right quadricep. Physical Exam Physical Exam: On exam patient is currently in bed. Is comfortable. He continues to demonstrate marked strength deficits to right quadricep though I can appreciate contraction of the musculature with effort. Results & Data ([facility]) Vital Signs (Past 12 Hours) Vital Signs Temp Pulse Pulse Resp BP Pulse Ox O2 Del Method 07/02/22 08:14 36.3 C L 74 16 115/65 93 Room Air 07/02/22 03:34 66 23 95 FiO2 07/02/22 08:14 07/02/22 03:34 21
--- NOTE | 2022-07-04 12:13 | Discharge Summary ---
Date of Service July 04, 2022 Admission HPI Per Admitting Provider History obtained from patient, family, and records. Medical history significant for hypertension, hyperlipidemia, DM2 diet- controlled, LEIGH on CPAP, migraine/trigeminal neuralgia as per records, CRI (baseline creatinine 1.7), chronic anemia (baseline hemoglobin 12), anxiety disorder. Last confinement December 2019 for ARF secondary to gastroenteritis. 5 days ago, patient woke up with right lower leg numbness associated pain or weakness. No fever, no chills, no headache, no chest pain, no SOB. No prior episodes. No unusual back pain. No recollection of recent trauma. Patient seen at PCPs office 2 days ago. Outpatient D-dimer and arterial Dopplers requested for leg numbness. D-dimer noted to be abnormal. Normal RLE arterial Dopplers. Patient consulted ER for further evaluation. 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 Admission Exam Per Admitting Provider GENERAL: Slightly uncomfortable, morbidly obese, no respiratory distress SKIN: Normal color, warm HEENT: [place] palpebral conjunctivae, no ptosis, moist buccal mucosa NECK : Supple, short neck, no tenderness CHEST : CTA, no tenderness HEART : RRR, no obvious murmurs ABDOMEN: distention, nontender EXTREMITIES : Bilateral LE swelling, minimal LLE tenderness, no other conspicuous deformities noted NEUROLOGIC : Coherent, no facial asymmetry, MMTS BUE 5/5, RLE 4/5, LLE 5/5, gait and stance not assessed Principal Diagnosis Lumbar disc herniation with radiculopathy: Discharge Exam Gen: WD/WN, NAD, sitting on side of bed, obese, A&Ox3 HEENT: Normocephalic, atraumatic, conjunctivae moist, sclerae anicteric, mucous membranes moist Lung: Clear to Auscultation bilaterally, no wheezes/rales/rhonchi Heart: Regular rate, regular rhythm, no murmurs, rubs, or gallops Abdomen: Soft, NT, ND + hypoactive bowel sounds Extremities: +Spinal dressing c/d/i. + ARVIN drain visualized. No edema Skin: Warm, no rash Discharge Data Allergies Allergy/AdvReac Type Severity Reaction Status Date / Time doxazosin [From Cardura] Allergy Unknown Unknown Verified 06/24/22 19:35 empagliflozin Allergy Unknown Unknown Verified 06/24/22 19:35 [From Jardiance] Consultations 06/24/22 19:19 ED Decision to Admit Stat 06/25/22 15:29 Consult Orthopedic Surgery Routine Procedures Performed Operation Date: 06/29/22 07:45 Actual Procedures p Decompression Fusion L3-4, Application of Bone Graft, Interbody Placement at L3-L4(Not Applicable) - Piero Paul DO Ordered Studies 06/24/22 15:51 US venous doppler LE RT Stat 06/24/22 15:53 CT head/brain wo con Stat 06/25/22 00:07 MR angio head wo con Urgent MR brain wo con Urgent 06/25/22 16:20 MR lumbar spine wo con Routine 06/29/22 FL lumbar spine 2-3V Routine Hospital Course (1) CKD (chronic kidney disease), stage III: (2) Morbid obesity: (3) Lumbar disc herniation with radiculopathy: (4) Right leg weakness: (5) DM type 2 (diabetes mellitus, type 2): (6) Anxiety: (7) HTN (hypertension): (8) LEIGH on CPAP: Plan Lumbar disc herniation with radiculopathy RLE weakness Lumbar spine MRI: Multilevel discogenic degeneration with ligamentum flavum thickening and facet arthrosis as above. Severe central canal stenosis is most pronounced at L3-L4 with multilevel neural foraminal narrowing. POD#3 L3-L4 decompression fusion Activity and wound care orders as per ortho Pain control with bowel regimen Fall precautions and assist given RLE weakness PT/OT Monitor H/H for acute blood loss anemia and transfuse blood products PRN --> hgb stable at 10.5 today (10.6 yesterday) Constipation Passing gas, continued on bowel regimen per Dr. Paul. Enema ordered today No abdominal distention, nausea or vomiting suggestive of bowel obstruction Continue to monitor, obtain KUB if indicated HTN (hypertension) Antihypertensives initially held on admission due to borderline low BP and concern for possible acute CVA, which has been ruled out Historically has difficult to control hypertension on 6 different antihypertensives as an outpatient Home amlodipine, lisinopril, terazosin have since been resumed Furosemide and chlorthalidone remain on hold Carvedilol held 2/2 borderline bradycardia, HR now improved but BP with good control at this point - continue to hold DM type 2 (diabetes mellitus, type 2) Hgb A1c 6.4 06/2021, now 6.1 NovoLog per protocol while hospitalized CKD (chronic kidney disease), stage III Baseline creatinine ~2.0 Creat stable Continue to monitor, avoid nephrotoxic agents as able LEIGH on CPAP Continue CPAP as per home settings Morbid obesity Patient told previous provider he already lost 40 pounds with current efforts and is planning to continue to lose weight. BMI 54.9 Dispo: Plan for discharge to rehab per primary service. Patient seen in collaboration with Dr. Arshad. Please see addendum. Thank you for this consultation. We will follow the patient with you during their hospital stay. You can reach a member of the [facility]ist Team 09/05 via [place] Text. Total Time Total Time Spent Total Time Spent (In Minutes): 20 Total Time Includes: Examination of the Patient, Discharge Planning, Medication Reconciliation and Communication With Other Providers Discharge Plan Discharge Items Patient Disposition: Transfer Inpatient Rehab Fac Reason For Visit: RLE WEAKNESS Discharge Diagnosis: Lumbar disc herniation with neurodeficit Activity: As commented below Non-emergency contact: Primary Care Provider Call non-emergency contact if: you have any medication questions Follow-up/Referrals: Mikey Vizcaino MD [Primary Care Provider] - Diet: Regular Addtl Attending Provider Instructions: ACTIVITY RECOMMENDATIONS: SELF CARE INSTRUCTIONS AFTER THORACIC/LUMBAR FUSIONS 1. You may walk to your tolerance. It is good exercise for your legs and back. Expect some back and intermittent leg aches and pains. 2. You may perform "counter-top" level activities (make a sandwich, bill with a project, etc.). 3. No bending or lifting of more than 10 pounds or back twisting of any nature (roll like a log when turning in bed). 4. You may ride in a car for 20-30 minutes at a time. No driving until after your first visit with your doctor. 5. Frequent changes of position and restricting sitting to 30 minutes at a time will help limit the amount of back spasms and stiffness you may experience. 6. You may discontinue the use of ambulatory aids (cane, crutches, etc.) once your strength and confidence allow. 7. You may compounder flavorings the shower and let water strike your incision when you arrive home at least once daily. Do not take a tub bath, sit in a hot tub or go into a swimming pool until after your first recheck in the office. SPECIAL CARE INSTRUCTIONS: VERY IMPORTANT TO READ AND REVIEW A. Your surgical incision has been closed with a cosmetic suture under the skin that will dissolve in about 6 weeks. In 14 days, you can use a pair of clean scissors and cut the suture that is left outside of the skin at the ends of your incision. 1. The small skin tapes can be removed 7 days after surgery if they have not fallen off by that point. 2. You may keep the wound open to air as much as possible to promote healing after post-op day number 5 unless told otherwise by your doctor. 3. If you think the wound looks like it is becoming infected (redness or worsening drainage) and/or you are experiencing fever, chill or worsening back pain and muscle spasms, contact the office so that we may evaluate you as soon as possible. B. Complications are uncommon, but please contact us if you have any signs or symptoms of: 1. wound infection (fever higher than 102.5 degrees F, redness, separation of wound, drainage, or increasing pain from the incision) 2. blood clots in legs (pain, swelling, redness and warmth in legs) 3. urinary tract infection (fever higher than 102.5 degrees F, burning upon urination or increased frequency of urination) 4. nerve problems (inability to walk on your toes or heels, numbness, loss of bowel or bladder control) 5. any other symptoms that concern you C. Please call the office at if you have any concerns or questions about your operation or recovery. D. No smoking! Smoking drastically decreases the chance of a solid fusion. E. Do not take any anti-inflammatory medications (Indocin, Advil, Motrin, Aspirin, Naprosyn, etc.) as these may inhibit the chance of a solid fusion. Tylenol is okay to take for pain. MANAGING PAIN AFTER SPINAL SURGERY 1. Narcotic medication is intended for short-term use and will be provided for surgical pain. Surgical pain usually lasts for a period of 4-6 weeks. Narcotic medication includes Percocet, Vicodin, Darvocet, Tylenol #3 or Lortab. 2. Longer-term pain is more appropriately treated with non-narcotic medication such as Tylenol ES. 3. Muscle spasm is not appropriately treated with narcotics. Muscle relaxers such as Soma, Flexeril or Skelaxin can be used along with Tylenol ES. 4. Remember that we all live with some "aches and pains". This is not unusual or uncommon after an injury or as we get older. a. Back pain is expected and may include muscle spasms for 4 to 6 weeks after surgery. The pain should gradually improve. If the pain worsens for no apparent reason, please contact the office. b. Intermittent leg pain may also be experienced and should not be concerned about unless it worsens for no apparent reason. If so, please contact the office. 5. We will provide appropriate medication within the normal guidelines of their prescribed use. We will also be very cautious and aware of potential abuse and extended duration of patients' medication needs. a. Pain medications are for your comfort and to assist with sleep and rest so that the tissue can heal. They are not provided in order to return to normal activity and should not be used through the day. To do so or worsening pain at night can result from ongoing tissue damage and development of tolerance to the prescribed medicine. 6. Please allow 2-3 days to process refills. Prescriptions will not be mailed but must be picked up at the office. FOLLOW UP VISIT: Keep your scheduled follow-up appointment. Any questions, please call the office at . Pending Studies at Discharge: No Stand-Alone Forms: My [facility] Skilled Items Patient informed of condition?: Yes DNR: No Discharge Level of Care: Acute rehab Communicable Disease: No Discharge Prognosis: Improving Lines: None Urinary Catheter: No Medications and DC Order Prescriptions: New tramadol 50 mg tablet 50 mg PO Q6H PRN (Reason: pain, moderate) Qty: 30 0RF oxycodone 5 mg tablet 5 mg PO Q6H PRN (Reason: pain, severe) Qty: 30 0RF Continued citalopram [Celexa] 40 mg Tablet 40 mg PO QAM amlodipine [Norvasc] 10 mg Tablet 10 mg PO HS simvastatin [Zocor] 20 mg Tablet 20 mg PO HS carvedilol [Coreg] 25 mg tablet 25 mg PO BIDM Rx Instructions: morning and dinner furosemide 40 mg tablet 40 mg PO QAM doxepin 50 mg capsule 50 mg PO HS terazosin 1 mg capsule 1 mg PO HS lisinopril 40 mg tablet 40 mg PO QAM chlorthalidone 25 mg tablet 25 mg PO QAM omeprazole 40 mg capsule,delayed release(DR/EC) 40 mg PO QAM metoclopramide HCl 5 mg tablet 5 mg PO BIDM Rx Instructions: take before a meal gabapentin 300 mg capsule 600 mg PO HS metformin 500 mg tablet extended release 24 hr 500 mg PO QPM Rx Instructions: take with supper tramadol 50 mg Tablet 50 mg PO BID PRN (Reason: Pain) Discharge Orders: Discharge Order (Routine); Ordered 07/02/22 Ordered By: Piero Christopher/Other Patient Handouts: Managing Type 2 Diabetes Admission Data Admit Date/Time: 06/25/22 15:29 Attending Provider: [place] Arshad Admit Provider: Kenny Kaur Primary Care Provider: Mikey Vizcaino Other Providers: Kenny Kaur ; Piero Paul ; [facility] ; Dayna Herbert Other Interventions: Discharge Summary Assessment (RN) Last Done: 07/02/22 13:03
== END 2022-07-02 14:15 | DRG 454 ==
LOC: 4W 12:12 → ED 12:12 → 4W 06-25 00:16 → SUATTDRO 06-25 15:29 → 3E 06-28 18:09